=== PATIENT | female | born 1990 | race Caucasian/White ===

== ENCOUNTER 2019-04-08 21:40 | Outpatient (REF) | payer OTHER, SELFPAY ==
[2019-04-08 22:14] LABS: Bilirubin Negative (Negative); Blood Trace-intact (Negative); Clarity Clear (Clear); Glucose Negative (Negative); Ketones Negative (Negative); Leukocyte Esterase Negative (Negative); Nitrite Negative (Negative); Specific Gravity 1.025 (1.005-1.025); Urobilinogen 0.2 EU/dL (Up TO 0.2)
[2019-04-08 22:24] LABS: Bacteria Few HPF (Negative); C & S Indicated? No; Casts Negative LPF (Negative); Crystals Negative HPF (Negative); Epithelial Cells Few HPF (Negative); Mucus Trace (Negative); Other Cells Rare Renal (Negative); WBC 0-2 HPF (0-5)
== END 2019-04-08 22:00 ==
LOC: LBN 21:40
PROVIDERS: Visit Provider Obstetrics & Gynecology
DX: R35.0 Frequency of micturition (principal)
CPT/HCPCS: 81003; 81015

== ENCOUNTER 2019-08-19 10:14 | Outpatient (CLI) | payer OTHER, SELFPAY ==
[2019-08-20 14:24] LABS: COVID-19 RT-PCR UVMMC Result Negative (Negative)
== END 2019-08-19 10:34 ==
PROVIDERS: Visit Provider Internal Medicine
DX: Z11.59 Encounter for screening for other viral diseases (principal)
CPT/HCPCS: U0003

== ENCOUNTER 2020-01-06 08:36 | Outpatient (CLI) | payer OTHER, SELFPAY ==
[2020-01-07 20:23] LABS: COVID-19 RT-PCR Result NEGATIVE (Negative)
== END 2020-01-06 08:56 ==
PROVIDERS: Visit Provider Internal Medicine
DX: Z20.828 Contact with and (suspected) exposure to other viral communicable diseases (principal); R05 Cough; J02.9 Acute pharyngitis, unspecified
CPT/HCPCS: U0003

== ENCOUNTER 2020-01-29 21:10 | Outpatient (REF) | payer OTHER, SELFPAY | END 2020-01-29 21:30 | LOC: NCHCN 21:10 | PROVIDERS: PCP Nurse Practitioner Women's Health; Visit Provider Family Medicine | DX: L65.9 Nonscarring hair loss, unspecified (principal) | CPT/HCPCS: 84443 ==

== ENCOUNTER 2020-09-07 18:24 | Outpatient (REF) | payer OTHER, SELFPAY ==
[2020-09-07 13:55] LABS: Abs Immature Grans 0.01 10^3/uL (0.0-0.06); Absolute Basophil Count 0.03 10^3/uL (0.0-0.2); Absolute Eosinophil Count 0.16 10^3/uL (0.0-0.7); Absolute Monocyte Count 0.67 10^3/uL (0.1-0.8); Absolute Neutrophil Count 4.21 10^3/uL (1.2-6.7); Basophils % 0.4; Eosinophils % 2.2; HCT 41.7 % (36.0-46.0); HGB 13.9 g/dL (11.2-15.7); Immature Grans % 0.1; Lymphocytes % 31.2; MCH 31.1 pg (27.0-33.0); MCHC 33.3 % (32.0-36.0); MCV 93.3 fL (80-95); MPV 10.1 fL (8.0-11.0); Monocytes % 9.1; Nucleated RBC 0 %; Platelet Count 277 10^3/uL (130-400); RBC 4.47 10^6/uL (3.93-5.22); RDW 11.2 % (11.7-14.6); RDW-SD 38.3 fL; WBC 7.38 10^3/uL (4.4-10.8)
[2020-09-07 14:13] LABS: ALT 18 U/L (14-59); AST 12 U/L (15-37); Alkaline Phosphatase 82 U/L (46-116); Anion Gap 6.9 mmol/L (3-11); BUN 16 mg/dL (7-18); Bilirubin, Total 0.3 mg/dL (0.2-1.0); C-Reactive Protein 0.18 mg/dL (0.0-0.3); CO2 31.1 mmol/L (21.0-32.0); CREATININE 0.7 mg/dL (0.55-1.02); Calcium 8.9 mg/dL (8.5-10.1); Chloride 106 mmol/L (98-107); Glucose 94 mg/dL (74-106); Potassium 4.3 mmol/L (3.5-5.1); Sodium 144 mmol/L (136-145); Total Protein 7.1 g/dL (6.4-8.2)
== END 2020-09-07 18:25 | disposition home or self-care (01) ==
LOC: NCHCN 18:24
PROVIDERS: PCP Nurse Practitioner Women's Health; Visit Provider Family Medicine
DX: R10.9 Unspecified abdominal pain (principal); R63.4 Abnormal weight loss
CPT/HCPCS: 80053; 85025; 86140

== ENCOUNTER 2020-11-15 19:51 | Outpatient (REF) | payer OTHER, SELFPAY ==
[2020-11-16 00:35] LABS: COVID-19 RT-PCR UVMMC Result Negative (Negative)
== END 2020-11-15 19:52 | disposition home or self-care (01) ==
LOC: NCHCN 19:51
PROVIDERS: PCP Nurse Practitioner Women's Health; Visit Provider Internal Medicine
DX: Z20.822 Contact with and (suspected) exposure to COVID-19 (principal); J06.9 Acute upper respiratory infection, unspecified
CPT/HCPCS: U0003

== ENCOUNTER 2021-01-26 17:50 | Outpatient (REF) | payer OTHER, SELFPAY ==
[2021-01-27 19:52] LABS: COVID-19 RT-PCR UVMMC Result Negative (Negative)
== END 2021-01-26 17:51 | disposition home or self-care (01) ==
LOC: NCHCN 17:50
PROVIDERS: PCP Nurse Practitioner Women's Health; Visit Provider Internal Medicine
DX: Z20.822 Contact with and (suspected) exposure to COVID-19 (principal)
CPT/HCPCS: U0003

== ENCOUNTER 2021-02-11 15:11 | Outpatient (REF) | payer OTHER, SELFPAY ==
[2021-02-12 01:02] LABS: COVID-19 RT-PCR UVMMC Result Negative (Negative)
== END 2021-02-11 15:12 | disposition home or self-care (01) ==
LOC: NCHCN 15:11
PROVIDERS: PCP Nurse Practitioner Women's Health; Visit Provider Internal Medicine
DX: Z20.822 Contact with and (suspected) exposure to COVID-19 (principal)
CPT/HCPCS: U0003

== ENCOUNTER 2021-02-16 21:08 | Outpatient (REF) | payer OTHER, SELFPAY ==
[2021-02-18 19:04] LABS: COVID-19 RT-PCR UVMMC Result Negative (Negative)
== END 2021-02-16 21:09 | disposition home or self-care (01) ==
LOC: NCHCN 21:08
PROVIDERS: PCP Nurse Practitioner Women's Health; Visit Provider Internal Medicine
DX: Z20.822 Contact with and (suspected) exposure to COVID-19 (principal)
CPT/HCPCS: U0003

== ENCOUNTER 2021-04-11 16:01 | Outpatient (REF) | payer OTHER, SELFPAY ==
[2021-04-12 01:02] LABS: COVID-19 RT-PCR UVMMC Result Negative (Negative)
== END 2021-04-11 16:02 | disposition home or self-care (01) ==
LOC: NCHCN 16:01
PROVIDERS: PCP Nurse Practitioner Women's Health; Visit Provider Internal Medicine
DX: Z20.822 Contact with and (suspected) exposure to COVID-19 (principal); J06.9 Acute upper respiratory infection, unspecified
CPT/HCPCS: U0003

== ENCOUNTER 2021-11-30 11:10 | Emergency (ER) | payer BC, SELFPAY ==
[2021-11-30] VITALS (30 sets, daily range): BP systolic 90–108; BP diastolic 57–72; PULSE 79–96; RESP 9–21; TEMP 36.7–37.4; O2SAT 85–100
--- NOTE | 2021-11-30 11:00 | RT.EKG_ITS ---
APPROVED REPORT Exam: Resting ECG Reason for Exam: chest pain Patient Location: E HR:81 bpm ECG Measurements Heart Rate 81 AXIS NC 142 P 44 QRSd 84 QRS 61 QT 369 T 35 QTc 429 Conclusion Sinus rhythm...normal P axis, V-rate 60- 99
--- NOTE | 2021-11-30 11:57 | W.ED.GENAD ---
Discharge Plan Disposition Patient Disposition: HOME Condition: Stable Discharge Details Clinical Impression: Chest pain, Dyspnea Primary Care Provider: Rebecca Moore ED Provider: Greg Jean Baptiste Home Meds and New Rx's Prescriptions: Continued prenat.vits,myriam,[id number] Tablet 1 tab PO DAILY Discharge Instructions Instructions: Chest Pain (ED), Dyspnea (ED) Additional Instructions: Work-up in the ER was unremarkable for obvious emergent process. Troponin and delta troponin both are unremarkable, CTA of the chest is also negative. Please watch for new or worsening symptoms and return to the ER for any concerns. Lastly, please contact your [employer] team tomorrow to make them aware of your ER visit and need for outpatient reevaluation Discharge Data Discharge Date/Time-TO BE ENTERED AT DEPARTURE: 11/30/21 15:41 Medical Decision Making This is a 31-year-old female G2, P1 approximately 33 weeks , presenting for what she describes as chest pain and dyspnea that began about 30 minutes ago and has now essentially completely resolved. She appears well, nontoxic, lungs are clear to auscultation, pulse in the 80s, O2 sat 100% on room air. Given she is , concerned for hyper coagulable state and PE. Plan is to obtain IV access, obtain cardiac work-up including a delta troponin and D-dimer. We discussed aspirin in the setting, patient declines which I believe to be perfectly reasonable. Laboratory values reveal a D-dimer of 1037 otherwise essentially unremarkable for acute emergent process. Troponin less than 50. No evidence of leukocytosis. This D-dimer is elevated at 1 taking into consideration she is in her third trimester. Risks and benefits of CTA were discussed and we plan to move forward with CTA to rule out PE Patient remains asymptomatic. COVID-negative Delta troponin remains less than 50. CTA unremarkable. Discussed work-up with patient. She is relieved and has no additional questions or concerns. Plan to contact her [employer] team tomorrow. She remains asymptomatic Strict discharge and return precautions were provided. Patient understands, is agreeable to this plan, and has no additional questions or concerns upon discharge. This documentation was generated using [employer] system, please disregard any oddities of phrase or misspellings. Medical Records Medical records reviewed: Yes I reviewed the patient's medical records. Imaging Data Radiologic Study: Attestation: I personally reviewed and interpreted this imaging study as follows: Imaging: CT Scan Radiologist's impression: This report is currently processing and HAS NOT BEEN OFFICIALLY SIGNED BY THE PHYSICIAN - ESTIMATED TIME OF APPROVAL IS 11/30/2021 15:37. Exam(s) CT CHEST PE CTA EXAM: CT CHEST PE CTA CLINICAL HISTORY: chest pain/sob/elevated dimer. TECHNIQUE: Imaging Protocol: Axial CT angiography was performed with multi-slice acquisition and multi-planar and/or 3D reconstructions. CONTRAST MATERIAL: Intravenous: Omnipaque 350 contrast volume:66 mL COMPARISON: CT CT ABDOMEN PELVIS W from 09/17/2020 FINDINGS: Tracheobronchial tree: Patent where visualized. Pulmonary parenchyma: No consolidation or dominant measurable mass. No architectural distortion. Pulmonary Arteries: No evidence of filling defect to suggest pulmonary emboli. Mediastinum and Khadra: No dominant adenopathy or fluid collection. The esophagus is unremarkable. Visualized thyroid gland: Unremarkable. Pleura: No effusion or pneumothorax. Heart: The heart is not dilated. No coronary artery calcifications are seen. No pericardial effusion. Aorta: Thoracic aorta non-dilated. No evidence of dissection. Upper abdomen: There is again seen a cyst in the left lobe of the liver. Soft tissues: Unremarkable. Bones: Within normal limits for the patient's age. IMPRESSION: 1. No evidence of pulmonary embolism, thoracic aortic dissection or aneurysm. 2. Results of this exam have been verbally communicated with provider. Lab Data Lab results reviewed: Yes I reviewed the patient's lab results. Labs: Laboratory Tests Range/Units 11/30/21 11/30/21 11/30/21 11:30 11:30 11:30 WBC (4.4-10.8) 10^3/uL 9.20 RBC (3.93-5.22) 10^6/uL 4.00 Hgb (11.2-15.7) g/dL 12.9 Hct (36.0-46.0) % 37.7 MCV (80-95) fL 94 MCH (27.0-33.0) pg 32.3 MCHC (32.0-36.0) % 34.2 RDW (11.7-14.6) % 11.9 Plt Count (130-400) 10^3/uL 209 MPV (8.0-11.0) fL 10.4 Immature Gran % 0.3 Neutrophils % 75.0 Lymphocytes % 16.5 Monocytes % 7.6 Eosinophils % 0.5 Basophils % 0.1 Nucleated RBC % (0.0-0.3) % 0.0 Absolute Neutrophils (1.2-6.7) 10^3/uL 6.89 H Absolute Lymphocytes (1.2-3.4) 10^3/uL 1.52 Absolute Monocytes (0.1-0.8) 10^3/uL 0.70 Absolute Eosinophils (0.0-0.7) 10^3/uL 0.05 Absolute Basophils (0.0-0.2) 10^3/uL 0.01 PT (9.3-11.0) sec 8.9 L INR (0.9-1.1) 0.9 APTT (21.0-27.5) sec 18.9 L D-Dimer (<500) ng/mlFEU 1037 H Sodium (136-145) mmol/L 138 Potassium (3.5-5.1) mmol/L 4.1 Chloride (98-107) mmol/L 103 Carbon Dioxide (21.0-32.0) mmol/L 29.3 Anion Gap (3-11) mmol/L 5.7 BUN (7-18) mg/dL 8 Creatinine (0.55-1.02) mg/dL 0.5 L Est GFR (CKD-EPI 2020) (mL/min/1.73m2) 126.93 Glucose (74-106) mg/dL 91 Calcium (8.5-10.1) mg/dL 9.1 Magnesium (1.8-2.4) mg/dL 1.9 Total Bilirubin (0.2-1.0) mg/dL 0.3 AST (15-37) U/L 25 ALT (14-59) U/L 19 Alkaline Phosphatase (46-116) U/L 110 Troponin I (<or=60) ng/L < 50 NT-Pro-B Natriuret Pep (<300) pg/mL 12 Total Protein (6.4-8.2) g/dL 7.2 Albumin (3.4-5.0) g/dL 3.0 L COVID-19 Source SARS-CoV-2 (PCR) (Negative) Range/Units 11/30/21 11/30/21 12:55 14:38 WBC (4.4-10.8) 10^3/uL RBC (3.93-5.22) 10^6/uL Hgb (11.2-15.7) g/dL Hct (36.0-46.0) % MCV (80-95) fL MCH (27.0-33.0) pg MCHC (32.0-36.0) % RDW (11.7-14.6) % Plt Count (130-400) 10^3/uL MPV (8.0-11.0) fL Immature Gran % Neutrophils % Lymphocytes % Monocytes % Eosinophils % Basophils % Nucleated RBC % (0.0-0.3) % Absolute Neutrophils (1.2-6.7) 10^3/uL Absolute Lymphocytes (1.2-3.4) 10^3/uL Absolute Monocytes (0.1-0.8) 10^3/uL Absolute Eosinophils (0.0-0.7) 10^3/uL Absolute Basophils (0.0-0.2) 10^3/uL PT (9.3-11.0) sec INR (0.9-1.1) APTT (21.0-27.5) sec D-Dimer (<500) ng/mlFEU Sodium (136-145) mmol/L Potassium (3.5-5.1) mmol/L Chloride (98-107) mmol/L Carbon Dioxide (21.0-32.0) mmol/L Anion Gap (3-11) mmol/L BUN (7-18) mg/dL Creatinine (0.55-1.02) mg/dL Est GFR (CKD-EPI 2020) (mL/min/1.73m2) Glucose (74-106) mg/dL Calcium (8.5-10.1) mg/dL Magnesium (1.8-2.4) mg/dL Total Bilirubin (0.2-1.0) mg/dL AST (15-37) U/L ALT (14-59) U/L Alkaline Phosphatase (46-116) U/L Troponin I (<or=60) ng/L < 50 NT-Pro-B Natriuret Pep (<300) pg/mL Total Protein (6.4-8.2) g/dL Albumin (3.4-5.0) g/dL COVID-19 Source Nasal/Nares SARS-CoV-2 (PCR) (Negative) Negative ECG Data Attestation: I personally reviewed and interpreted this ECG (s) as follows: Interpretation: Sinus rhythm, ventricular of 81. No STEMI HPI General Mode of arrival: ambulatory. Date/Time Provider Initiated Documentation: 11/30/21 11:29. Limitations to Documentation: no limitations. Information obtained by: patient. History of Present Illness 31 year old F presents to the emergency department with the chief complaint of chest pressure/dyspnea, described as moderate, with intensity rated at 4. Quality is described as stabbing (with pressure), and is localized to the chest. Patient reports radiation to back. Patient started experiencing this minute(s) (30) and it has been now resolved. No relieving factors improve symptom(s), No exacerbating factors reported . Patient notes no other symptoms.. Patient did receive the following treatments prior to arrival, none Related Data Home Medications Medication Instructions Recorded Confirmed prenat.vits,myriam,[id number] 1 tab PO DAILY 11/30/21 11/30/21 Allergies Allergy/AdvReac Type Severity Reaction Status Date / Time prednisolone AdvReac Intermediate Other (See Verified 11/30/21 11:25 Comment) General Stated Complaint: Chest Pain TODD: 3 Review of Systems Constitutional Constitutional: Denies fever(s) and Denies weakness ENT Ears, Nose, Mouth, and Throat: Denies neck pain Cardiovascular Cardiovascular: Reports chest pain and Reports dyspnea Respiratory Respiratory: Denies cough and Reports dyspnea Gastrointestinal Gastrointestinal: Denies abdominal pain, Denies nausea and Denies vomiting Genitourinary Genitourinary: Denies abnormal vaginal bleeding and Denies dysuria Musculoskeletal Musculoskeletal: Reports back pain and Denies neck pain Integumentary/Breasts Skin/Breast: Denies rash Neurologic Neurologic: Denies weakness PFSH All Active Problems Chest pain (Acute) Dyspnea (Acute) Social History Smoking/Tobacco Use Status: Never Smoking risk assessment performed?: Yes Alcohol Intake: never Drug use: Never Substance use type: does not use Do you feel safe at home: Yes Do you feel safe in your relationship?: Yes Exam Const General: cooperative, healthy appearing, comfortable and no acute distress Orientation: alert and awake [facility] Head: normal to inspection, normocephalic and atraumatic Eyes Conjunctivae: conjunctivae normal Neck Neck: normal visual inspection, full ROM, no meningeal signs, trachea midline and supple Resp Effort & Inspection: normal respiratory effort and able to speak in complete sentences Auscultation: clear to auscultation bilaterally Cardio Rate: regular rate Rhythm: regular rhythm GI Palpation: nontender Other: Consistent with approximately 33 weeks Back/Spine/Pelvis Back: No back tenderness Skin General skin exam: no rashes or lesions noted Neuro General: patient alert, patient awake, moves all extremities and no focal motor deficits Cognition: normal cognition Speech: speech normal Gait: normal gait Sensory Exam: no sensory deficits noted Extrem General: normal to inspection, full ROM, capillary refill normal, no pedal edema and no calf tenderness Psych Appearance: grossly normal Mental Status: mental status grossly normal Course Vital Signs Vital signs: Vital Signs Temperature 37.4 C 11/30/21 11:20 Pulse 89 11/30/21 11:20 Respiratory Rate 16 11/30/21 11:20 Blood Pressure 106/72 11/30/21 11:20 Pulse Oximetry 100 11/30/21 11:20 Temperature 37.4 C 11/30/21 11:20 Temperature Source Temporal Artery Scan 11/30/21 11:20 Pulse 89 11/30/21 11:20 Respiratory Rate 16 11/30/21 11:20 Respiratory Effort Non-Labored 11/30/21 11:27 Blood Pressure 106/72 11/30/21 11:20 Blood Pressure Position Sitting 11/30/21 11:20 Pulse Oximetry 100 11/30/21 11:20 Oxygen Delivery Method Room Air 11/30/21 11:20 Oxygen Flow Rate 0 11/30/21 11:20 Pain Level 1 11/30/21 11:20
[2021-11-30 12:00] LABS: Abs Immature Grans 0.03 10^3/uL (0.0-0.06); Absolute Basophil Count 0.01 10^3/uL (0.0-0.2); Absolute Eosinophil Count 0.05 10^3/uL (0.0-0.7); Absolute Lymphocyte Count 1.52 10^3/uL (1.2-3.4); Absolute Neutrophil Count 6.89 10^3/uL (1.2-6.7); Basophils % 0.1; Eosinophils % 0.5; HCT 37.7 % (36.0-46.0); HGB 12.9 g/dL (11.2-15.7); Immature Grans % 0.3; Lymphocytes % 16.5; MCH 32.3 pg (27.0-33.0); MCHC 34.2 % (32.0-36.0); MCV 94 fL (80-95); MPV 10.4 fL (8.0-11.0); Monocytes % 7.6; Platelet Count 209 10^3/uL (130-400); RDW 11.9 % (11.7-14.6); RDW-SD 40.8 fL
[2021-11-30 12:14] LABS: INR 0.9 (0.9-1.1); PTT Activated 18.9 sec (21.0-27.5); Prothrombin Time 8.9 sec (9.3-11.0)
[2021-11-30 12:26] LABS: ALT 19 U/L (14-59); AST 25 U/L (15-37); Alkaline Phosphatase 110 U/L (46-116); Anion Gap 5.7 mmol/L (3-11); BUN 8 mg/dL (7-18); Bilirubin, Total 0.3 mg/dL (0.2-1.0); CO2 29.3 mmol/L (21.0-32.0); CREATININE 0.5 mg/dL (0.55-1.02); Calcium 9.1 mg/dL (8.5-10.1); Chloride 103 mmol/L (98-107); Estimated GFR 126.93 (mL/min/1.73m2); Glucose 91 mg/dL (74-106); Magnesium 1.9 mg/dL (1.8-2.4); NT-proBNP 12 pg/mL (<300); Potassium 4.1 mmol/L (3.5-5.1); Sodium 138 mmol/L (136-145); Total Protein 7.2 g/dL (6.4-8.2)
[2021-11-30 12:29] LABS: Troponin I < 50 ng/L (<or=60)
[2021-11-30 12:32] LABS: D-Dimer 1037 ng/mlFEU (<500)
--- NOTE | 2021-11-30 12:45 | DI.CT_ITS ---
Exam(s) CT CHEST PE CTA EXAM: CT CHEST PE CTA CLINICAL HISTORY: chest pain/sob/elevated dimer. TECHNIQUE: Imaging Protocol: Axial CT angiography was performed with multi-slice acquisition and mu lti-planar and/or 3D reconstructions. CONTRAST MATERIAL: Intravenous: Omnipaque 350 contrast volume:66 mL COMPARISON: CT CT ABDOMEN PELVIS W from 09/17/2020 FINDINGS: Tracheobronchial tree: Patent where visualized. Pulmonary parenchyma: No consolidation or dominant measurable mass. No architectural distortion. Pulmonary Arteries: No evidence of filling defect to suggest pulmonary emboli. Mediastinum and Khadra: No dominant adenopathy or fluid collection. The esophagus is unremarkable. Visualized thyroid gland: Unremarkable. Pleura: No effusion or pneumothorax. Heart: The heart is not dilated. No coronary artery calcifications are seen. No pericardial effusion. Aorta: Thoracic aorta non-dilated. No evidence of dissection. Upper abdomen: There is again seen a cyst in the left lobe of the liver. Soft tissues: Unremarkable. Bones: Within normal limits for the patient's age. IMPRESSION: 1. No evidence of pulmonary embolism, thoracic aortic dissection or aneurysm. 2. Results of this exam have been verbally communicated with provider. RADIATION DOSE DELIVERED: 322.02mGy.cm Total DLP DATA REPOSITORY: All CT scans at this facility are submitted to the National Radiology Data Registry (NRDR) Dose Index Registry (DIR) with the [employer] (ACR). RADIATION OPTIMIZATION: All CT scans at this facility use at least one of these dose optimization te chniques: automated exposure control; mA and/or kV adjustment per patient size (includes targeted exa ms where dose is matched to clinical indication); or iterative reconstruction.
[2021-11-30 12:58] LABS: Source Nasal/Nares
[2021-11-30 13:51] LABS: COVID-19 PCR Negative (Negative)
--- NOTE | 2021-11-30 14:41 | NUR.NOTE ---
Nursing Note: PT RETURN FROM DI, 2ND TROP. TAKEN & SENT TO LAB, STATES AT THIS TIME NO CHEST PAIN, REPORTS JUST FEELS FUNNY AND NOT NORMAL BUT NO PAIN, CONT. TO MONITOR.
[2021-11-30] MEDS: Omnipaque 350 MG/ML 100 ML BTL 66 ML IV (14:44)
[2021-11-30 15:13] LABS: Troponin I < 50 ng/L (<or=60)
== END 2021-11-30 15:41 | disposition home or self-care (01) ==
PROVIDERS: Emergency Provider Physician Assistant; PCP Nurse Practitioner Women's Health
DX: O99.891 Other specified diseases and conditions complicating pregnancy (principal); R07.89 Other chest pain; R06.00 Dyspnea, unspecified; R79.1 Abnormal coagulation profile; Z3A.33 33 weeks gestation of pregnancy; Z20.822 Contact with and (suspected) exposure to COVID-19
CPT/HCPCS: 36415; 71275; 80053; 87635; 93005; 99285; 83735; 83880; 84484; 85025; 85379; 85610; 85730; 93010; 99284; J3490

== ENCOUNTER 2024-03-28 19:51 | Outpatient (REF) | payer BC, SELFPAY ==
--- OUTSIDE RECORDS SUMMARY | 2024-03-28 20:15 | XMS_ITS | Encounter Summary ---
Author Organization [facility] Address [address] [place] [id number] Care Team Providers Care Product Safety Coordinator Name Role Phone Unavailable Primary Care Provider Unavailabl e Encounter Details Date Type Department Care Team (Late st Contact Info) Description 11/15/2020 Lab Requisition [facility] Pathology & Laboratory Medicine - [facility] [address], [place] [address] Outr Resulting Lab, Provider Social History Tobacco Use Types Packs/Day Years Used Date Smoking Tobacco: Never Assessed Interpersonal Safety Answer Date Record ed Physically Hurt Never 02/17/2020 Verbally Threaten Not on file 02/17/2020 Comments Unknown Sex and Gender Information Value Date Recorded Sex Assigned at Not on file Legal Sex Female 16:48 EDT Gender Identity Not on file Sexual Orientation Not on file documented as of this encounter Plan of Treatment Not on file documented as of this encounter Procedures Procedure Name Priority Date/Time Associated Diagnosis Comments ZZCOVID-19 TEST UVC LAB PCR Today 11/15/2020 10:30 EDT COVID-19 TESTING Routine 11/15/2020 10:3 0 EDT documented in this encounter Results * COVID-19 TEST UVC LAB PCR (11/15/2020 10:30 EDT) Swab ENTIRE NASOPHARYNX / Unknown 11/15/2020 10:30 EDT 11/15/2020 21:20 EDT us Provider Outr Resulting Lab MICROBIOLOGY - GENER AL ORDERABLES Final Result [facility] [address] [place] [address] * COVID-19 TESTING (11/15/2020 10:30 EDT) COVID-19 rt-PCR Result Negative Negative 11/16/2020 0:30 EDT [facility] Comment: This test has not been FDA cleared or approved. This test has been authorized by FDA under an EUA for use by authorized laboratories. This test has been authorized only for detection of nucleic acid from 2019-nCoV, not for any other viruses or pathogens. This test is only authorized for the duration of the declaration that circumstances exist justifying the authorization of emergency use of in vitro diagnostic tests for detection and/or diagnosis of 2019-nCoV under section 564(b)(1) of Act, 21 U.S.C ?? 360bbb-3(b) (1), unless the authorization is terminated or revoked sooner. Negative results do not preclude 2019-nCoV infection and should not be used as the sole basis for treatment or other patient management decisions. Negative results must be combined with clinical observations, patient history, and epidemiological information. Performed on the [employer] Fusion instrument Performing Lab [place] [facility] Lab 11/16/2020 0:30 EDT [facility] Swab 11/15/2020 10:3 0 EDT 11/15/2020 21:20 EDT us Provider Outr Resulting Lab MICROBIOLOGY - GENER AL ORDERABLES Final Result [facility] [address] [place] [address] documented in this encounter Visit Diagnoses Not on filedocumented in this encounter
--- OUTSIDE RECORDS SUMMARY | 2024-03-28 20:15 | XMS_ITS | Continuity of Care Document ---
Author Organization [facility] Address [address] [place] [address] Encounter [facility] FIN NBR [id number] Date(s): 12/26/21 - 12/26/21 [facility] [address], [place] [address] Encounter Diagnosis (Discharge Diagnosis) - 12/26/21 Discharge Disposition: Home or Self Care Attending Physician: Juan Gandhi Allergies, Adverse Reactions, Alerts Substance Reaction Severity Status prednisoLONE 1 Moderate Active 1topical-mouth irritation Medications 19 ([place]) See Instructions, 0 Refill(s) Start Date: 12/26/21 Status: Ordered Problem List Condition Confirmation Course Effective Dates Status Health [facility] Informant Confirmed 04/10/21 Active Vital Signs Most recent to oldest [Reference Range]: 1 Blood Pressure [90-140/60-90 mmHg] 106/6 2mmHg (12/26/21 3:29 PM) Weight 71.2 kg (12/26/21 3:35 PM) Weight Dosing 71.2 kg (12/26/21 3:29 PM) Pre- Weight 56.699 kg (12/26/21 3:29 PM) Cumulative Weight Gain 14.50 kg (12/26/21 3:35 PM) Height 154.94 cm (12/26/21 3:29 PM) Social History Social History Type Response Sex Female
--- OUTSIDE RECORDS SUMMARY | 2024-03-28 20:15 | XMS_ITS | Continuity of Care Document ---
Author Organization [facility] Address [address] [place] [address] Care Team Providers Care Corporate Development Intern Name Role Phone DONNA JORDAN APRN Primary Care Physician Encounter [facility] NBR [phone] Date(s): 02/13/24 - 02/13/24 [facility] [address] [place] [address]- us Discharge Disposition: Home Allergies, Adverse Reactions, Alerts Substance Criticality Severity Reaction Reaction Severity Status prednisoLONE 1 High criticality Moderate Oral blisters Active Celery High criticality Severe Act desire 1topical-mouth irritation Assessment and Plan Future Appointments Medications norethindrone 0.35 mg oral tablet 0.35 mg = 1 tab, Oral, Daily, # 84 tab, 3 Refill(s), Pharmacy: [facility], 154.94, cm, 01/19/22 5:08:00 EDT, Height/Length Dosing, 73, kg, 01/19/22 5:08:00 EDT, Weight Dosing Start Date: 02/01/22 Status: Ordered 19 ([place]) See Instructions, 0 Refill(s) Start Date: 12/26/21 Status: Ordered Valium 5 mg oral tablet See Instructions, 1 tab Orally times one 30 min prior to procedure. May repeat x 1 if needed., # 2 tab, 0 Refill(s), Pharmacy: [facility], 165.1, cm, 03/09/22 15:08:00 EST, Height, 59, kg, 01/03/24 16:19:00 EDT, Weight Dosing Start Date: 01/04/24 Status: Ordered Problem List Condition Confirmation Course Effective Dates Status H ealth Status Informant Cystocele with rectocele Confirmed Active Obsessional thoughts Confirmed Active Oral contraception status Confirmed Active Women's annual routine gynecological examination Confirmed Active Contraceptive management Confirmed Active Procedures Procedure Date Related Diagnosis Body Site Status Knee 1 Completed Wrist Completed 1in high school Social History Social History Type Response Smoking Status Smoking tobacco use: Never tobacco user;Never entered on: 01/03/24 Sex Female Sex Representation Female (finding) summary Document * Event Display: Summary Document Authored Date: [id number] SAMANTHA DERAS : 1990 Age: 31 Years SAMNATHA DERAS : [birth year] Summary (Date of Report: 02/01/22) G 2 P 1 (1,0,0,1) Gestation: [place] LMP (from pt. history): -- SISI: 01/15/2022 SISI/EGA Method: Last Menstrual Period EGA: Delivered Gestation info at delivery: Baby A : 40 weeks 4 days SAMANTHA DERAS DOB: [birth year] Antepartum Note Date: 01/09/22 14:55 (39 weeks) By: Juan Gandhi MD Some BHs, baby is low Date: 12/27/21 07:40 (37 weeks) By: Juan Gandhi MD Late entry: GBS done. Vtx but high. SAMANTHA DERAS DOB: [birth year] Problems (Active Problems Only) ([facility] [place]: [id number], Onset: 04/10/21) SAMANTHA DERAS DOB: [birth year] Risk Factors and Genetic Screening All Results Documented Since 04/10/2021 Risk Factors (Current ) No risk factors have been recorded for this . Ethnic Screening No ethnicities have been recorded. Genetic Disorders Screening No genetic disorders have been recorded. SAMANTHA DERAS : [birth year] Gestational Age (EGA) and SISI * Note: EGA calculated as of 02/01/2022 SISI: 01/15/2022 EGA*: 40 weeks 4 days Type: Authoritative Method Date: 04/10/2021 Method: Last Menstrual Period (04/10/2021) Confirmation: Confirmed Description: Date Definite Comments: -- Entered by: Juan Gandhi MD on 12/25/2021 Other SISI Calculations for this : No additional SISI calculations have been recorded for this SAMANTHA DERAS : [birth year] Measurements Pre- Weight: 56.699 kg 01/16/22 (40 weeks) Recent Weight Measured: 73.0 kg (+17) 01/16/22 (40 weeks) Height/Length Measured: 154.94 cm 01/16/22 (40 weeks) Body Mass Index Measured: 30.41 kg/m2 01/16/22 (40 weeks) SAMANTHA DERAS : [birth year] Exam and Notes Date QUINTON Huerta PTL S/S Cervix BP Weight Urine Baby cm Dil Eff(%) Sta mmHg lbs kg Gluc Prot FHR Activity Fet Pres 01/19/22 40w4d -- -- 10 100% -- -- -- -- -- Baby A = 130 *Present pe... -- 01/16/22 40w1d 37 *Pelv.. 2.5 70% -3 102/68 *160... Negative Negative Baby A = 145bpm *Present pe... Vertex 01/09/22 39w1d 38 -- -- -- -- 104/62 *159... Negative Negative Baby A = 145 *Present pe... Vertex 01/02/22 38w1d -- -- -- -- -- 98/62 *157... Negative Negative -- -- -- 12/27/21 37w2d 37 -- 0 50% -3 -- -- -- -- Baby A = 150 *Present pe... Vertex 12/26/21 37w1d -- -- -- -- -- 106/62 *156... -- -- -- -- -- Next Visit: +1 weeks from 01/16/2022 * Labor Signs & Symptoms 01/16/2022 Pelvic pressure * Weight 01/16/2022 160.965(lbs) 73.0(kg) 01/09/2022 159.642(lbs) 72.4(kg) 01/02/2022 157.216(lbs) 71.3(kg) 12/26/2021 156.996(lbs) 71.2(kg) * Activity 01/19/2022 Present per patient 01/16/2022 Present per patient 01/09/2022 Present per patient 12/27/2021 Present per patient SAMANTHA DERAS : [birth year] Physical Exams Physical Exam Mental Status Level of Consciousness: Alert (01/20/22) Orientation Assessment: Oriented x 4 (01/20/22) Affect/Behavior: Appropriate (01/19/22) HEENT Mouth: Mouth appears normal (01/20/22) Throat: Throat appears normal (01/20/22) Cardiovascular Cardiovascular Symptoms: None (01/20/22) Nail Bed Color: Normal for ethnicity (01/20/22) Capillary Refill: 2 seconds or less (01/20/22) Skin Temperature, Upper Extremities: Warm (01/20/22) Skin Temperature, Lower Extremities: Warm (01/20/22) Heart Rhythm: Regular (01/19/22) Respiratory Respiratory Symptoms: None (01/20/22) Respirations: Unlabored (01/20/22) Respiratory Pattern: Regular (01/20/22) Gastrointestinal GI Symptoms: None (01/20/22) Abdomen Description: Rounded (01/20/22) Passing Flatus: Yes (01/20/22) Extremities Edema Edema: None (01/09/22) Integumentary Skin Color General: Usual for ethnicity (01/20/22) Skin Temperature: Warm (01/20/22) Skin Turgor: Elastic (01/20/22) Skin Moisture General: Dry (01/20/22) Skin Integrity General: Intact (01/20/22) Mucous Membrane Color: [place] (01/20/22) Mucous Membrane Description: Moist (01/20/22) SAMANTHA DERAS : [birth year] Blood Types and Anti-D Immune Globulin Blood Type and Screen Mother ABO/Rh: -- Mother Antibody Screen: -- Father of Baby ABO/Rh: -- Father of Baby Antibody Screen: -- Anti-D Immune Globulin Rho(D) Initial Status: -- Rho(D) 28 Week Status: -- Rho(D) Dates Given: -- SAMANTHA DERAS : [birth year] Tests and Lab Results Results ending with 'TR' have been keyed in by the practice or interpreted manually. Result Date: Estimated weeks post onset will display next to actual result date. Test Result Date Ref Range Group B Strep (GeneXpert) Negative 12/26/21 (37 weeks) Negative Protein Urine Dipstick Negative 01/02/22 (38 weeks) Glucose Urine Dipstick Negative 01/02/22 (38 weeks) Protein Urine Dipstick Negative 01/09/22 (39 weeks) Glucose Urine Dipstick Negative 01/09/22 (39 weeks) Protein Urine Dipstick Negative 01/16/22 (40 weeks) Glucose Urine Dipstick Negative 01/16/22 (40 weeks) Imm Gran Auto 0.4 % 01/19/22 (40 weeks) (0.0 - 0.5) Imm Gran Absolute (N) 0.04 01/19/22 (40 weeks) Eos, Auto 0.40 % 01/19/22 (40 weeks) (0.00 - 3.00) Eos Absolute 0.0 K/mcL 01/19/22 (40 weeks) (0.0 - 0.2) Neutro Absolute (H) 6.8 K/mcL 01/19/22 (40 weeks) (1.4 - 6.5) [place] Absolute (H) 1.1 K/mcL 01/19/22 (40 weeks) (0.1 - 0.6) Lymph Absolute 2.0 K/mcL 01/19/22 (40 weeks) (1.2 - 3.4) Baso Absolute 0.0 K/mcL 01/19/22 (40 weeks) (0.0 - 0.2) Basophil Auto (H) 0.3 % 01/19/22 (40 weeks) (0.0 - 0.2) [place] Auto (H) 10.8 % 01/19/22 (40 weeks) (1.7 - 9.3) Neutro Auto 67.8 % 01/19/22 (40 weeks) (42.2 - 75.2) Lymph Auto (L) 20.3 % 01/19/22 (40 weeks) (20.5 - 51.1) Hct (L) 36.1 % 01/19/22 (40 weeks) (37.0 - 52.0) Platelets 198 K/mcL 01/19/22 (40 weeks) (130 - 400) MCHC 34.6 g/dL 01/19/22 (40 weeks) (32.0 - 36.0) MCV 93.0 fL 01/19/22 (40 weeks) (80.0 - 99.0) RBC (L) 3.88 Million/mcL 01/19/22 (40 weeks) (4.20 - 6.10) Hgb 12.5 g/dL 01/19/22 (40 weeks) (12.0 - 18.0) WBC 10.0 K/mcL 01/19/22 (40 weeks) (4.8 - 10.8) MCH (H) 32.2 pg 01/19/22 (40 weeks) (27.0 - 31.0) RDW-CV 12.2 % 01/19/22 (40 weeks) (11.5 - 14.5) MPV 10.2 fL 01/19/22 (40 weeks) (7.4 - 10.4) SAMANTHA DERAS: [birth year] Actions No Actions have been documented. SAMANTHA DERAS: [birth year] Situational Awareness No comments have been documented. SAMANTHA DERAS : [birth year] Allergies (Active and Proposed Allergies Only) Celery (Severity: Severe, Onset: Unknown) prednisoLONE (Severity: Moderate, Onset: Unknown) Comments: topical-mouth irritation SAMANTHA DERAS : [birth year] Medications Prescriptions and Home Medications Currently Active or Taking acetaminophen 325 mg oral tablet (Historically recorded) SI mg = 2 tab, Oral, every 4 hr, PRN: pain, 0 Refill(s) Ordered: 01/20/22 Provider: Dipika Chung MD, MARCOS benzocaine-menthol 20%-0.5% topical spray (Historically recorded) SI tari, Topical, As Directed, PRN: other (see comment), 0 Refill(s) Ordered: 01/20/22 Provider: Dipika Chung MD, MARCOS docusate-senna 50 mg-8.6 mg oral tablet (Historically recorded) SI tab, Oral, BID, PRN: constipation, 0 Refill(s) Ordered: 01/20/22 Provider: Dipika Chung MD, FACOG ferrous sulfate 325 mg (65 mg elemental iron) oral delayed release tablet (Historically recorded) SI mg = 1 tab, Oral, Daily, 0 Refill(s) Ordered: 01/20/22 Provider: Dipika John, MD, FACOG ibuprofen 600 mg oral tablet (Historically recorded) SI mg = 1 tab, Oral, every 4 hr, PRN: pain, 0 Refill(s) Ordered: 01/20/22 Provider: Dipika Chung MD, FACOG norethindrone 0.35 mg oral tablet SI.35 mg = 1 tab, Oral, Daily, 84 tab, 4 Refill(s) Ordered: 01/20/22 Provider: Dipika Chung MD, FACOG 19 ([place]) (Historically recorded) SIG: See Instructions, 0 Refill(s) Ordered: 12/26/21 Provider: -- esteban chepe 50% rectal pad (Historically recorded) SI tari, Topical, As Directed, PRN: other (see comment), 0 Refill(s) Ordered: 01/20/22 Provider: Dipika Chung MD, FACOG Inactive or Suspended (Prescriptions and documented medications since 01/08/21) No medications have been recorded Medication Administrations In-Office/Hospital (All in-office/hospital administrated medications ordered since 01/08/21) ferrous sulfate (Ferrous Sulfate 325 mg Tab [LTTL]) 325 mg = 1 tab, Oral, Daily Status: Canceled Ordered: 01/19/22 Provider: Dipika Chung MD, FACOG multivitamin, (Multiple Vitamins [LTTL]) 1 tab, Oral, Daily Status: Canceled Ordered: 01/19/22 Provider: Dipika Chung MD, FACOG acetaminophen 650 mg = 2 tab, N/A, Once Status: Completed Ordered: 01/19/22 Provider: WillieUser, Generated ibuprofen 600 mg = 1 tab, N/A, Once Status: Completed Ordered: 01/19/22 Provider: DomainUser, Generated lidocaine 1% (lidocaine) 20 mL, N/A, Once Status: Completed Ordered: 01/19/22 Provider: DomainUser, Generated mineral oil 100% (mineral oil) 30 mL, N/A, Once Status: Completed Ordered: 01/19/22 Provider: WillieUser, Generated oxytocin 10 units = 1 mL, N/A, Once Status: Completed Ordered: 01/19/22 Provider: DomainUser, Generated acetaminophen (Acetaminophen 325 mg Tab [LTTL]) 650 mg = 2 tab, Oral, every 4 hr, PRN: pain Status: Discontinued Ordered: 01/19/22 Provider: Dipika Chung MD, TRISTAOG benzocaine-menthol 20%-0.5% topical spray (Benzocaine-Menthol Topical [place] [LTTL]) 1 tari, Topical, As Directed, PRN: other (see comment) Status: Discontinued Ordered: 01/19/22 Provider: Dipika Chung MD, MARCOS benzocaine-menthol 20%-0.5% topical spray (Benzocaine-Menthol Topical [place] [LTTL]) 1 tari, Topical, As Directed, PRN: other (see comment) Status: Discontinued Ordered: 01/19/22 Provider: Dipika Chung MD, TRISTAOG calcium (as carbonate) 500 mg oral tablet (Calcium Carbonate 500 mg Chew Tab (Tums) [LTTL]) 500 mg = 1 tab, Oral, every 2 hr, PRN: dyspepsia Status: Discontinued Ordered: 01/19/22 Provider: Dipika Chung MD, MARCOS calcium (as carbonate) 500 mg oral tablet (Calcium Carbonate 500 mg Chew Tab (Tums) [LTTL]) 1,000 mg = 2 tab, Oral, every 2 hr, PRN: dyspepsia Status: Discontinued Ordered: 01/19/22 Provider: Dipika Chung MD, TRISTAOG calcium (as carbonate) 500 mg oral tablet (Calcium Carbonate 500 mg Chew Tab (Tums) [LTTL]) 1,000 mg = 2 tab, Oral, every 2 hr, PRN: dyspepsia Status: Discontinued Ordered: 01/19/22 Provider: Dipika Chung MD, MARCOS calcium (as carbonate) 500 mg oral tablet (Calcium Carbonate 500 mg Chew Tab (Tums) [LTTL]) 500 mg = 1 tab, Oral, every 2 hr, PRN: dyspepsia Status: Discontinued Ordered: 01/19/22 Provider: Dipika Chung MD, MARCOS docusate-senna 50 mg-8.6 mg oral tablet (Senna-Docusate 8.6 mg-50 mg Tab [LTTL]) 1 tab, Oral, BID, PRN: constipation Status: Discontinued Ordered: 01/19/22 Provider: Dipika Chung MD, MARCOS docusate-senna 50 mg-8.6 mg oral tablet (Senna-Docusate 8.6 mg-50 mg Tab [LTTL]) 1 tab, Oral, BID, PRN: constipation Status: Discontinued Ordered: 01/19/22 Provider: Dipika Chung MD, FACOG ferrous sulfate (Ferrous Sulfate 325 mg Tab [LTTL]) 325 mg = 1 tab, Oral, Daily Status: Discontinued Ordered: 01/19/22 Provider: Dipika Chung MD, FACOG ibuprofen (Ibuprofen 600 mg Tab [LTTL]) 600 mg = 1 tab, Oral, every 4 hr, PRN: pain Status: Discontinued Ordered: 01/19/22 Provider: Dipika Chung MD, FACOG Lactated Ringers Injection 1,000 mL (Lactated Ringers 1,000 mL) 150 mL/hr, IV Status: Discontinued Ordered: 01/19/22 Provider: Dipika Chung MD, FACOG multivitamin, (Multiple Vitamins [LTTL]) 1 tab, Oral, Daily Status: Discontinued Ordered: 01/19/22 Provider: Dipika Chung MD, FACOG oxytocin (oxytocin 10 units/mL Inj 1ml Vial [LTTL]) 10 units = 1 mL, IM, Once, PRN: other (see comment) Status: Discontinued Ordered: 01/19/22 Provider: Dipika Chung MD, FACOG simethicone (Simethicone 80 mg Chew Tab [LTTL]) 80 mg = 1 tab, Oral, As Directed, PRN: gas Status: Discontinued Ordered: 01/19/22 Provider: Dipika Chung MD, FACOG simethicone (Simethicone 80 mg Chew Tab [LTTL]) 80 mg = 1 tab, Oral, As Directed, PRN: gas Status: Discontinued Ordered: 01/19/22 Provider: Dipika Chung MD, FACOG sodium chloride 0.9% flush (Sodium Chloride 0.9% Flush IV Mayra 10 mL [LTTL]) 10 mL, IV Flush, As Directed, PRN: other (see comment) Status: Discontinued Ordered: 01/19/22 Provider: Dipika Chung MD, FACOG witch hazel 50% rectal pad (Witch Chepe 50% Top Pad [LTTL]) 1 tari, Topical, As Directed, PRN: other (see comment) Status: Discontinued Ordered: 01/19/22 Provider: Dipika Chung MD, FACOG witch hazel 50% rectal pad (Witch Chepe 50% Top Pad [LTTL]) 1 tari, Topical, As Directed, PRN: other (see comment) Status: Discontinued Ordered: 01/19/22 Provider: Dipika Chung MD, FACOG SAMANTHA DERAS : [birth year] Immunizations No immunizations have been administered or recorded as given SAMANTHA DERAS : [birth year] Menstrual History Last Recorded Menstrual Period: -- Last Menstrual Period Description: -- Menarche Onset: -- Menarche Frequency: -- Menarche Length: -- Date of Menses Prior to LMP: -- On Hormonal Contracept within 2 months of LMP: -- Date of Home Test: -- Comments: -- SAMANTHA DERAS : [birth year] History (1,0,0,1) # 1 Baby 1 Outcome Date: 08/14/2019 Outcome or Result: Vaginal Gest Age: 40 weeks 1 days Outcome: Live Sex: Male Wt: 3289 g Hospital: [facility] Comment: Nitrous GBS positive SAMANTHA DERAS : [birth year] Medical History Past Medical History No active past medical history has been recorded Family History No active positive family history has been recorded Procedure or Surgical History Delivery of Products of Conception, External Approach Age: 31 Years Date: 01/19/2022 Drainage of Amniotic Fluid, Therapeutic from Products of Conception, Via Natural or Artificial Opening Age: 31 Years Date: 01/19/2022 Introduction of Other Gas into Respiratory Tract, Via Natural or Artificial Opening Age: 31 Years Date: 01/19/2022 Monitoring of Products of Conception, Cardiac Rate, External Approach Age: 31 Years Date: 01/19/2022 Repair Perineum Muscle, Open Approach Age: 31 Years Date: 01/19/2022 SAMANTHA DERAS DOB: [birth year] Social & Psychosocial History Social History Tobacco Never tobacco user Tobacco Use:. Electronic Cigarette/Vaping Electronic Cigarette Use: Never. Psychosocial History No active psychosocial history has been recorded SAMANTHA DERAS DOB: [birth year] Infection History Infection history negative or not recorded SAMANTHA DERAS DOB: [birth year] Anesthesia and Transfusions Prior Anesthesia or Transfusion Received: -- Prior Anesthesia Reaction(s): -- Prior Transfusion Reaction(s): -- Blood Transfusion Acceptable to Patient: -- SAMANTHA DERAS : [birth year] Plan and Patient Requests Desired Delivery Location: -- Education: -- Written Plan: -- Written Plan Location: -- Support Person/Desktop Support Technician Relationship to Pt: -- Oral Intake OB: -- Labor Preferences: -- Non-Medicinal Pain Relief: -- Anesthesia/Pain Medication During Labor: Epidural, IV narcotic Delivery Plan: -- Infant Feeding: -- Circumcision: -- Baby For Adoption: -- Patient Requests: -- Father of the Baby's Name: -- Senior Software Developer Selected: -- Surrogate : -- Support Person's Name: -- SAMANTHA DERAS : [birth year] Education Educational Materials/Leaflets Provided Title/Topic Date Provided [facility] Post Discharge Instructions 01/20/22 SAMANTHA DERAS : [birth year] Registration and Information Race: White Ethnicity: Not , , or Green[place]ic Origin Marital Status: Language(s): Azeri Yazdanism Preference(s): Pentecostalism Occupation/Education: See social history above if documented. Address, Phone, and Health Plans Home Address: [facility] [place], [place] [id number] Phone: --, , -- Health Plans: 1 - [facility] Member/Group: [id number] Deductible: $ -- Type: [facility] Address: [address] [address], [place], [place] [id number] General Information OB Provider(s) Information: Not explicitly recorded. May be noted in encounter section below. See below for detailed information for all visits and information. Delivery Center/Hospital Information: -- Provider Information: -- Referring Provider Information: Dipika Chung MD, FACOG Primary Provider Information: -- /Partner Information: CHAVEZ WANG Support Person Information: -- Planned/Unplanned : -- Date Consent Signed for Tubal Ligation: -- Date Record Sent to Hospital: -- SAMANTHA DERAS : [birth year] Visits and Encounters (Known encounters since 04/10/2021. May include lab encounters.) Date Location Provider Type Medical Service 02/01/2022 4 Dipika Chung MD, FACOG Clinic Clinic 01/19/2022 A Dipika Chung MD, [facility] Inpatient Inpatient 01/16/2022 [facility] Dipika Chung MD, FACOG Clinic Clinic 01/09/2022 1 Juan Gandhi MD Clinic Clinic 01/02/2022 3 Juan Gandhi MD Client Clinic 12/26/2021 [facility] Juan Gandhi MD Nonpatient Lab 12/26/2021 1 Juan Gandhi MD Clinic Clinic 11/25/2021 [facility] [id number] -DIPIKA CHUNG History Obstetrics 10/31/2021 [facility] [id number] -DIPIKA CHUNG History Radiology 10/31/2021 [facility] Jovan Delgado History Multiple Outpatient 09/09/2021 [facility] Jovan Delgado History Laboratory 09/09/2021 [facility] Juan Gandhi MD History Radiology 06/20/2021 [facility] [id number] -JOHNDIPIKA WOODALL Laboratory SAMANTHA DERAS : [birth year] Visit / Encounter Location Information The following information represents known location and contact information for locations visitedduring [facility] Business Address: [address] [place] [address] Phone:[phone] [facility] [place] Address: No addresses found on file for location Phone: No phone numbers found on file for location SAMANTHA DERAS : [birth year] Visit Diagnosis (Note: All diagnoses documented since 04/10/2021) 01/19/22 - Encounter for supervision of other normal , third trimester (ICD-10-CM: Z34.83,Date: ) 01/19/22 - Personal history of COVID-19 (ICD-10-CM: Z86.16, Date: ) 01/19/22 - Allergy status to other drugs, medicaments and biological substances (ICD-10-CM: Z88.8, Date: ) 01/19/22 - 40 weeks gestation of (ICD-10-CM: Z3A.40, Date: ) 01/19/22 - Precipitate labor (ICD-10-CM: O62.3, Date: ) 01/19/22 - Single live (ICD-10-CM: Z37.0, Date: ) 01/19/22 - Post-term (ICD-10-CM: O48.0, Date: ) 01/19/22 - Encounter for routine follow-up (ICD-10-CM: Z39.2, Date: 01/19/22) 01/19/22 - state, incidental (ICD-10-CM: Z33.1, Date: 01/19/22) 01/09/22 - state, incidental (ICD-10-CM: Z33.1, Date: 01/09/22) 01/02/22 - state, incidental (ICD-10-CM: Z33.1, Date: 01/02/22) 12/26/21 - state, incidental (ICD-10-CM: Z33.1, Date: 12/26/21) 12/26/21 - Encounter for supervision of normal first , third trimester (ICD-10-CM: Z34.03,Date: ) 12/26/21 - 37 weeks gestation of (ICD-10-CM: Z3A.37, Date: ) 12/26/21 - Encounter for supervision of normal first , third trimester (ICD-10-CM: Z34.03,Date: ) 12/26/21 - Encounter for supervision of normal first , third trimester (ICD-10-CM: Z34.03,Date: ) 12/26/21 - state, incidental (ICD-10-CM: Z33.1, Date: 12/26/21) SAMANTHA DERAS : [birth year] Delivery Summary Baby A Membrane Status Information ROM Date/Time: 01/19/22 02:56:00 Amniotic Fluid Color/Description: Clear Premature Rupture of Membranes: No Prolonged Rupture of Membranes: No Labor Information Labor Onset Methods: Spontaneous Precipitous Labor: No Prolonged Labor: No Monitoring FHR Monitoring Method: External electrode patch Delivery Information Delivery Type: Vaginal Delivery of Head Date/Time: 01/19/22 04:06:00 Date/Time of : 01/19/22 04:06:00 Placenta Delivery Date/Time: 01/19/22 04:15:00 Placenta Delivery Method: Spontaneous Placenta to Pathology: Yes Cord Blood Banking: No Cord Blood Sent to Lab: Yes Maternal Delivery Complications: None Attending Physician: Dipika Chung MD, FACOG Information Risk Factors: None Complications: None Umbilical Cord Description: 3 vessel cord Data Gender: Male ID Band Number: [id number] Outcome: Live Security Tag Number: [id number] Weight: 3.260 kg Score 1 Minute: 9 Score 5 Minute: 9 Senior Software Developer: Abi Cespedes APRN Note: Items documented with '--' had no clinical data which qualified at time of report creation END OF REPORT Note * Rita Manzo: PERFORM Event Display: Pathology Narrative Note Authored Date: Patient Care team information Care Team Personnel Name: DONNA JORDAN APRN Position: No Access Member Role: Primary Care Physician Address: [address] [place] [address] Care Team Related Persons Name: BONITA WANG Name: CHAVEZ WANG Name: CHAVEZ WANG Insurance Providers Guarantor name: SAMANTHA DERAS [employer] Plan Information #: 1 Payer: KATLIN RYEES Member Number: NA Policy Number: NA
--- OUTSIDE RECORDS SUMMARY | 2024-03-28 20:15 | XMS_ITS | Clinical Summary ---
Author Organization [facility] Address [address] [place] [id number] Care Team Providers Care World Designer Name Role Phone Unavailable Primary Care Provider Unavailabl e Social History Tobacco Use Types Packs/Day Years Used Date Smoking Tobacco: Never Assessed Interpersonal Safety Answer Date Record ed Physically Hurt Never 02/17/2020 Verbally Threaten Not on file 02/17/2020 Comments Unknown Sex and Gender Information Value Date Recorded Sex Assigned at Not on file Legal Sex Female 16:48 EDT Gender Identity Not on file Sexual Orientation Not on file Plan of Treatment Health Maintenance Due Date Last Done Comments Hepatitis C Screen 1990 Hepatitis B Vaccine (1 of 3 - 19+ 3-dose series) 11/19 COVID-19 Vaccine ( season) 2023
--- OUTSIDE RECORDS SUMMARY | 2024-03-28 20:15 | XMS_ITS | Encounter Summary ---
Author Organization [facility] Address [address] [place] [id number] Care Team Providers Care Pet Care Assistant Name Role Phone Unavailable Primary Care Provider Unavailabl e Encounter Details Date Type Department Care Team (Late st Contact Info) Description 02/11/2021 Lab Requisition [facility] Pathology & Laboratory Medicine - [address] [address] Outr Resulting Lab, Provider Social History Tobacco [...] Comments ZZCOVID-19 TEST [facility] LAB PCR Today 02/11/2021 9:30 EST COVID-19 TESTING Routine 02/11/2021 9:30 EST documented in this encounter Results * COVID-19 TEST [facility] PCR (02/11/2021 9:30 EST) Swab 02/11/2021 9:30 EST 02/11/2021 21:18 EST us Provider Outr Resulting Lab MICROBIOLOGY - GENER AL ORDERABLES Final Result [facility] [address] [place] [address] * COVID-19 TESTING (02/11/2021 9:30 EST) COVID-19 rt-PCR Result Negative Negative 02/12/2021 0:[address] [facility] Comment: This test has not [...] history, and epidemiological information. Performed on the CREOpointher Fusion instrument Performing Lab [place] [facility] Lab 02/12/2021 0:[address] [facility] Swab 02/11/2021 9:30 EST 02/11/2021 21:18 EST us Provider Outr Resulting Lab MICROBIOLOGY - GENER AL ORDERABLES Final Result [facility] [address] [place] [address] documented in this encounter Visit Diagnoses Not on filedocumented in this encounter
--- OUTSIDE RECORDS SUMMARY | 2024-03-28 20:15 | XMS_ITS | Continuity of Care Document ---
Author Organization [facility] Address [address] [place] [address] [facility]counter [facility]BR [id number] Date(s): 01/09/22 - 01/09/22 [facility] [address] [place], [place] [address] Encounter Diagnosis (Discharge Diagnosis) - 01/09/22 Discharge Disposition: Home or Self Care Attending Physician: Juan Gandhi Allergies, Adverse Reactions, Alerts Substance Reaction Severity Status prednisoLONE 1 Moderate Active 1topical-mouth irritation Medications 19 (Waller) See Instructions, 0 Refill(s) Start Date: 12/26/21 Status: Ordered Problem List Condition Confirmation Course Effective Dates Status Health St atus Informant Confirmed 04/10/21 Active Results Most recent to oldest [Reference Range]: 1 Protein Urine Dipstick Negative (01/09/22 2:22 PM) Glucose Urine Dipstick Negative (01/09/22 2:22 PM) Vital Signs Most recent to oldest [Reference Range]: 1 Blood Pressure [90-140/60-90 mmHg] 104/6 2mmHg (01/09/22 2:22 PM) Weight 72.4 kg (01/09/22 2:22 PM) Pre- Weight 56.699 kg (01/09/22 2:22 PM) Height 154.94 cm (01/09/22 2:22 PM) Social History Social History Type Response Sex Female
--- OUTSIDE RECORDS SUMMARY | 2024-03-28 20:15 | XMS_ITS | Encounter Summary ---
Author Organization [facility] Address [address] [place] [address] Care Team Providers Care Quality Improvement Manager Name Role Phone Unavailable Primary Care Provider Unavailabl e Encounter Details Date Type Department Care Team (Late st Contact Info) Description 03/16/2021 Lab Requisition [facility] Pathology & Laboratory Medicine - [address] [address] Outr Resulting Lab, Provider Social History Tobacco [...] Comments ZZCOVID-19 TEST [facility] LAB PCR Today 03/16/2021 8:30 EST COVID-19 TESTING Routine 03/16/2021 8:30 EST documented in this encounter Results * COVID-19 TEST [facility] PCR (03/16/2021 8:30 EST) Swab 03/16/2021 8:30 EST 03/16/2021 23:13 EST us Provider Outr Resulting Lab MICROBIOLOGY - GENER AL ORDERABLES Final Result [facility] [address] [place] [address] * COVID-19 TESTING (03/16/2021 8:30 EST) COVID-19 rt-PCR Result Negative Negative 03/17/2021 16:44 EST [facility] Comment: This test has not [...] history, and epidemiological information. Performed on the Zvooqher Fusion instrument Performing Lab [place] [facility] Lab 03/17/2021 16:44 EST [facility] Swab 03/16/2021 8:30 EST 03/16/2021 23:13 EST us Provider Outr Resulting Lab MICROBIOLOGY - GENER AL ORDERABLES Final Result [facility] [address] [place] [address] documented in this encounter Visit Diagnoses Not on filedocumented in this encounter
--- OUTSIDE RECORDS SUMMARY | 2024-03-28 20:15 | XMS_ITS | Encounter Summary ---
Author Organization [facility] Address [address] [place] [address] Care Team Providers Care Stone Chimney Mason Name Role Phone Unavailable Primary Care Provider Unavailabl e Encounter Details Date Type Department Care Team (Late st Contact Info) Description 03/28/2021 Lab Requisition [facility] Pathology & Laboratory Medicine - [facility] [address] [place] [address] Outr Resulting Lab, Provider Social History Tobacco [...] Comments ZZCOVID-19 TEST [facility] LAB PCR Today 03/28/2021 12:45 EST COVID-19 TESTING Routine 03/28/2021 12:4 5 EST documented in this encounter Results * COVID-19 TEST [facility] PCR (03/28/2021 12:45 EST) Swab 03/28/2021 12:4 5 EST 03/28/2021 23:13 EST us Provider Outr Resulting Lab MICROBIOLOGY - GENER AL ORDERABLES Final Result [facility] [address] [place] [address] * COVID-19 TESTING (03/28/2021 12:45 EST) COVID-19 rt-PCR Result Negative Negative 03/29/2021 16:21 EST [facility] Comment: This test has [...] history, and epidemiological information. Performed on the Matchbook Fusion instrument Performing Lab [place] [facility] Lab 03/29/2021 16:21 EST [facility] Swab 03/28/2021 12:4 5 EST 03/28/2021 23:13 EST us Provider Outr Resulting Lab MICROBIOLOGY - GENER AL ORDERABLES Final Result [facility] [address] [place] [address] documented in this encounter Visit Diagnoses Not on filedocumented in this encounter
--- OUTSIDE RECORDS SUMMARY | 2024-03-28 20:15 | XMS_ITS | Encounter Summary ---
Author Organization [facility] Address [address] [place] [address] Care Team Providers Care Automation Driver Name Role Phone Unavailable Primary Care Provider Unavailabl e Encounter Details Date Type Department Care Team (Late st Contact Info) Description 04/11/2021 Lab Requisition [facility] Pathology & Laboratory Medicine - [facility] [address] [place] [address] Outr Resulting Lab, Provider Social History Tobacco [...] Comments ZZCOVID-19 TEST [facility] LAB PCR Today 04/11/2021 11:40 EST COVID-19 TESTING Routine 04/11/2021 11:4 0 EST documented in this encounter Results * COVID-19 TEST [facility] PCR (04/11/2021 11:40 EST) Swab 04/11/2021 11:4 0 EST 04/11/2021 21:06 EST us Provider Outr Resulting Lab MICROBIOLOGY - GENER AL ORDERABLES Final Result [facility] [address] [place] [address] * COVID-19 TESTING (04/11/2021 11:40 EST) COVID-19 rt-PCR Result Negative Negative 04/12/2021 0:55 EST [facility] Comment: This test has not [...] history, and epidemiological information. Performed on the [employer] Fusion instrument Performing Lab [place] [facility] Lab 04/12/2021 0:55 EST [facility] Swab 04/11/2021 11:4 0 EST 04/11/2021 21:06 EST us Provider Outr Resulting Lab MICROBIOLOGY - GENER AL ORDERABLES Final Result [facility] [address] [place] [address] documented in this encounter Visit Diagnoses Not on filedocumented in this encounter
--- OUTSIDE RECORDS SUMMARY | 2024-03-28 20:15 | XMS_ITS | Encounter Summary ---
Author Organization [facility] Address [address] [place] [address] Care Team Providers Care Acute Care Surgeon Name Role Phone Unavailable Primary Care Provider Unavailabl e Encounter Details Date Type Department Care Team (Late st Contact Info) Description 02/17/2021 Lab Requisition [facility] Pathology & Laboratory Medicine - [address] [address] Outr Resulting Lab, Provider Social History Tobacco [...] Priority Date/Time Associated Diagnosis Comments ZZCOVID-19 TEST [facility] PCR Today 02/16/2021 10:02 EST COVID-19 TESTING Routine 02/16/2021 10:0 2 EST documented in this encounter Results * COVID-19 TEST [facility] PCR (02/16/2021 10:02 EST) Swab 02/16/2021 10:0 2 EST 02/18/2021 15:45 EST us Provider Outr Resulting Lab MICROBIOLOGY - GENER AL ORDERABLES Final Result [facility] [address] [place] [address] * COVID-19 TESTING (02/16/2021 10:02 EST) COVID-19 rt-PCR Result Negative Negative 02/18/2021 18:59 EST [facility] Comment: This test has [...] history, and epidemiological information. Performed on the Learn [employer] Homer Fusion instrument Performing Lab [place] [facility] Lab 02/18/2021 18:59 EST [facility] Swab 02/16/2021 10:0 2 EST 02/18/2021 15:45 EST us Provider Outr Resulting Lab MICROBIOLOGY - GENER AL ORDERABLES Final Result [facility] [address] [place] [address] documented in this encounter Visit Diagnoses Not on filedocumented in this encounter
--- OUTSIDE RECORDS SUMMARY | 2024-03-28 20:15 | XMS_ITS | Continuity of Care Document ---
Author Organization [facility] Ambulatory Clinics Address [address] [place] [address] Care Team Providers Care Employee Relations Consultant Name Role Phone DONNA JORDAN APRN Primary Care Physician Encounter [facility] NBR [id number] Date(s): 02/26/24 - 02/26/24 [facility] Ambulatory Clin[facility] [address] [place] [address]- [place] Encounter Diagnosis IUD check up(Discharge Diagnosis) - 02/26/24 Discharge Disposition: Home or Self Care Attending Physician: Rashad Claudio MD Allergies, Adverse Reactions, Alerts Substance Criticality Severity Reaction Reaction Severity Status prednisoLONE 1 High criticality Moderate Oral blisters Active Celery High criticality Severe Act desire 1topical-mouth irritation Assessment and Plan Extracted from: Title:Office Visit Note Author:Rashad Claudio MD D ate:02/26/24 1.??IUD check up??Z30.431 ??String check today.?? Follow-up??for routine well woman care. Medications Mirena 52 mg intrauteral device 0 Refill(s) Start Date: 02/20/24 Status: Ordered norethindrone 0.35 mg oral tablet 0.35 mg = 1 tab, Oral, Daily, # 84 tab, 3 Refill(s), Pharmacy: [facility], 154.94, cm, 01/19/22 5:08:00 EDT, Height/Length Dosing, 73, kg, 01/19/22 5:08:00 EDT, Weight Dosing Start Date: 02/01/22 Status: Ordered 19 (Jupiter) See Instructions, 0 Refill(s) Start Date: 12/26/21 Status: Ordered Valium 5 mg oral tablet See Instructions, 1 tab Orally times one 30 min prior to procedure. May repeat x 1 if needed., # 2 tab, 0 Refill(s), Pharmacy: [facility], 165.1, cm, 03/09/22 15:08:00 EST, Height, 59, kg, 01/03/24 16:19:00 EDT, Weight Dosing Start Date: 01/04/24 Status: Ordered Problem List Condition Confirmation Course Effective Dates Status H ealth Status Informant IUD check up Confirmed Active Obsessional thoughts Confirmed Active Oral contraception status Confirmed Active Women's annual routine gynecological examination Confirmed Active Contraceptive management Confirmed Active Procedures Procedure Date Related Diagnosis Body Site Status Knee 1 Completed Wrist Completed 1in high school Vital Signs Most recent to oldest [Reference Range]: 1 Blood Pressure [90-120/60-80 mmHg] 122/7 6mmHg *HI* (02/26/24 3:37 PM) Mean Arterial Pressure, Cuff [65-140 mmH g] 91 mmHg (02/26/24 3:37 PM) Weight 60.5 kg (02/26/24 3:37 PM) Weight Measured (lbs) 133.38 lb (02/26/24 3:37 PM) Weight Dosing 60.500 kg (02/26/24 3:37 PM) Social History Social History Type Response Smoking Status Smoking tobacco use: Never tobacco user;Never entered on: 01/03/24 Sex Female Sex Representation Female (finding) summary Document * Event Display: Summary Document Authored Date: [id number] SAMANTHA DERAS : 1990 Age: 31 Years SAMANTHA DERAS : [birth year] Summary (Date of Report: [...] GBS done. Vtx but high. SAMANTHA DERAS : [birth year] Problems (Active Problems Only) (SNOMED CT: [id number], Onset: 04/10/21) SAMANTHA DERAS: [birth year] Risk Factors and Genetic Screening All Results Documented Since 04/10/2021 Risk Factors (Current ) No risk factors have been recorded for this . Ethnic Screening No ethnicities have been recorded. Genetic Disorders Screening No genetic disorders have been recorded. SAMANTHA DERAS DOB: [birth year] Gestational Age (EGA) and SISI * [...] Integrity General: Intact (01/20/22) Mucous Membrane Color: [place] (01/20/22) Mucous Membrane Description: Moist (01/20/22) SAMANTHA [...] K/mcL 01/19/22 (40 weeks) (1.4 - 6.5) [place] Absolute (H) 1.1 K/mcL 01/19/22 (40 weeks) (0.1 - 0.6) Lymph Absolute 2.0 K/mcL 01/19/22 (40 weeks) (1.2 - 3.4) Baso Absolute 0.0 K/mcL 01/19/22 (40 weeks) (0.0 - 0.2) Basophil Auto (H) 0.3 % 01/19/22 (40 weeks) (0.0 - 0.2) [place] Auto (H) 10.8 % 01/19/22 (40 weeks) [...] Awareness No comments have been documented. SAMANTHA DERAS: [birth year] Allergies (Active and Proposed Allergies Only) Celery (Severity: Severe, Onset: Unknown) prednisoLONE (Severity: Moderate, Onset: Unknown) Comments: topical-mouth irritation SAMANTHA DERAS: [birth year] Medications Prescriptions and Home Medications Currently Active or Taking acetaminophen 325 mg oral tablet (Historically recorded) SI mg = 2 tab, Oral, every 4 hr, PRN: pain, 0 Refill(s) Ordered: 01/20/22 Provider: Dipika Chung MD, FACOG benzocaine-menthol 20%-0.5% topical spray (Historically recorded) SI tari, Topical, As Directed, PRN: other (see comment), 0 Refill(s) Ordered: 01/20/22 Provider: Dipika Chung MD, FACOG docusate-senna 50 mg-8.6 mg oral tablet (Historically recorded) SI tab, Oral, BID, PRN: constipation, 0 Refill(s) Ordered: 01/20/22 Provider: Dipika Chung MD, FACOG ferrous sulfate 325 mg (65 mg elemental iron) oral delayed release tablet (Historically recorded) SI mg = 1 tab, Oral, Daily, 0 Refill(s) Ordered: 01/20/22 Provider: Dipika Chung MD, FACOG ibuprofen 600 mg oral tablet (Historically recorded) SI mg = 1 tab, Oral, every 4 hr, PRN: pain, 0 Refill(s) Ordered: 01/20/22 Provider: Dipika Chung MD, FACOG norethindrone 0.35 mg oral tablet SI.35 mg = 1 tab, Oral, Daily, 84 tab, 4 Refill(s) Ordered: 01/20/22 Provider: Dipika Chung MD, FACOG 19 (Jupiter) (Historically recorded) SIG: See Instructions, 0 Refill(s) [...] Status: Completed Ordered: 01/19/22 Provider: DomainUser, Generated oxytocin 10 units = 1 mL, N/A, Once Status: Completed Ordered: 01/19/22 Provider: WillieUser, Generated acetaminophen (Acetaminophen 325 mg Tab [LTTL]) 650 mg = 2 tab, Oral, every 4 hr, PRN: pain Status: Discontinued Ordered: 01/19/22 Provider: Dipika Chung MD, FACOG benzocaine-menthol 20%-0.5% topical spray (Benzocaine-Menthol Topical [place] [LTTL]) 1 tari, Topical, As Directed, PRN: other (see comment) Status: Discontinued Ordered: 01/19/22 Provider: Dipika Chung MD, FACOG benzocaine-menthol 20%-0.5% topical spray (Benzocaine-Menthol Topical [place] [LTTL]) 1 tari, Topical, As Directed, PRN: other (see comment) Status: Discontinued Ordered: 01/19/22 Provider: Dipika Chung MD, FACOG calcium (as carbonate) 500 mg oral tablet (Calcium Carbonate 500 mg Chew Tab (Tums) [LTTL]) 500 mg = 1 tab, Oral, every 2 hr, PRN: dyspepsia Status: Discontinued Ordered: 01/19/22 Provider: Dipika Chung MD, FACOG calcium (as carbonate) 500 mg oral tablet (Calcium Carbonate 500 mg Chew Tab (Tums) [LTTL]) 1,000 mg = 2 tab, Oral, every 2 hr, PRN: dyspepsia Status: Discontinued Ordered: 01/19/22 Provider: Dipika Chung MD, FACOG calcium (as carbonate) 500 mg oral tablet (Calcium Carbonate 500 mg Chew Tab (Tums) [LTTL]) 1,000 mg = 2 tab, Oral, every 2 hr, PRN: dyspepsia Status: Discontinued Ordered: 01/19/22 Provider: Dipika Chung MD, FACOG calcium (as carbonate) 500 mg oral tablet (Calcium Carbonate 500 mg Chew Tab (Tums) [LTTL]) 500 mg = 1 tab, Oral, every 2 hr, PRN: dyspepsia Status: Discontinued Ordered: 01/19/22 Provider: Dipika Chung MD, FACOG docusate-senna 50 mg-8.6 mg oral tablet (Senna-Docusate 8.6 mg-50 mg Tab [LTTL]) 1 tab, Oral, BID, PRN: constipation Status: Discontinued Ordered: 01/19/22 Provider: Dipika Chung MD, FACOG docusate-senna 50 mg-8.6 mg oral tablet (Senna-Docusate [...] 01/19/22 Provider: Dipika Chung MD, FACOG witch chepe 50% rectal pad (Witch Chepe 50% Top Pad [LTTL]) 1 tari, Topical, As Directed, PRN: other (see comment) Status: Discontinued Ordered: 01/19/22 Provider: Dipika Chung MD, FACOG witch chepe 50% rectal pad (Witch Chepe 50% Top Pad [LTTL]) 1 tari, Topical, As Directed, PRN: other (see comment) Status: Discontinued Ordered: 01/19/22 Provider: Dipika Chung MD, FACOG SAMANTHA DERAS: [birth year] Immunizations No immunizations have been administered [...] Live Sex: Male Wt: 3289 g Hospital: [facility] Comment: Nitrous GBS positive SAMANTHA DERAS : [...] active psychosocial history has been recorded SAMANTHA DERAS: [birth year] Infection History Infection history negative or not recorded SAMANTHA DERAS DOB: [birth year] Anesthesia and Transfusions Prior Anesthesia or Transfusion Received: -- Prior Anesthesia Reaction(s): -- Prior Transfusion Reaction(s): -- Blood Transfusion Acceptable to Patient: -- SAMANTHA DERAS : [birth year] Plan and Patient Requests Desired Delivery Location: -- Education: -- Written Plan: -- Written Plan Location: -- Support Person/Regrinder Relationship to Pt: -- Oral Intake OB: -- Labor Preferences: -- Non-Medicinal Pain Relief: -- Anesthesia/Pain Medication During Labor: Epidural, IV narcotic Delivery Plan: -- Infant Feeding: -- Circumcision: -- Baby For Adoption: -- Patient Requests: -- Father of the Baby's Name: -- Building Materials Sales Attendant Selected: -- Surrogate : -- Support Person's Name: -- SAMANTHA DERAS : [birth year] Education Educational Materials/Leaflets Provided Title/Topic Date Provided [facility] Post Discharge Instructions 01/20/22 SAMANTHA DERAS : [birth year] Registration and Information Race: White Ethnicity: Not , , or Puerto Rican Origin Marital Status: Language(s): Albanian Hindu Preference(s): Shinto Occupation/Education: See social history above if documented. Address, Phone, and Health Plans Home Address: [address] [place] [id number] Phone: --, , -- Health Plans: 1 - BS Member/Group: [id number] Deductible: $ -- Type: [facility] Address: [address] [phone] General Information OB Provider(s) Information: Not explicitly recorded. May be noted in encounter section below. See below for detailed information for all visits and information. Delivery Center/Hospital Information: -- [place] Provider Information: -- Referring Provider Information: Dipika Chung [place] [facility] Provider Information: -- /Partner Information: CHAVEZ WANG Support Person Information: -- Planned/Unplanned : -- Date Consent Signed for Tubal Ligation: -- Date Record Sent to Hospital: -- SAMANTHA DERAS : [birth year] Visits and Encounters (Known encounters since 04/10/2021. May include lab encounters.) Date Location Provider Type Medical Service 02/01/2022 4 Dipika Chung [place], [facility]/19/2022 A Dipika Chung MD, [facility] [place] 01/16/2022 [facility] Dipika Chung MD, [facility] [place] 01/09/2022 1 Juan Gandhi MD Clinic Clinic 01/02/2022 3 Juan Gandhi MD Client Clinic 12/26/2021 [facility] Juan Gandhi MD Nonpatient Lab 12/26/2021 1 Juan Gandhi MD Clinic Clinic 11/25/2021 [facility] DIPIKA CHACON History Obstetrics 10/31/2021 [facility] DIPIKA CHACON History Radiology 10/31/2021 [facility] Jovan Delgado History Multiple Outpatient 09/09/2021 [facility] Jovan Delgado History Laboratory 09/09/2021 [facility] Juan Gandhi MD History Radiology 06/20/2021 [facility] [id number] -DIPIKA CHUNG [facility] SAMANTHA DERAS : [birth year] Visit / Encounter Location Information The following information represents known location and contact information for locations visitedduring [facility] Ambulatory Clinics Business Address: [address] [place] [address] Phone:[phone] [facility] Address: No addresses found on file for [...] None Umbilical Cord Description: 3 vessel cord Infant Data Gender: Male ID Band Number: [id number] Outcome: Live Security Tag Number: [id number] Weight: 3.260 kg Score 1 Minute: 9 Score 5 Minute: 9 Building Materials Sales Attendant: Abi Cespedes APRN Note: Items documented with '--' had no clinical data which qualified at time of report creation END OF REPORT Note * Rita Manzo: PERFORM Event Display: Pathology Narrative Note Authored Date: Physician Outpatient Note * Rashad Claudio MD: PERFORM Event Display: Office Clinic Note Physician Authored Date: [id number] SAMANTHA DERAS :1990 Age:33 years Sex:Female Visit Date:02/26/2024 Primary Care Physician: DONNA JORDAN APRN Chief Complaint Mirena insert was on 01/17/24. Last pap: 01/03/24 NILM, HPV aptima neg. Bleed for a month, stopped about a week ago. This past weekend string poking/stratching her, went about her day and the feeling went away. History of Present Illness 33-year-old presents today for IUD check.?? She is status post Mirena IUD insertion 6 weeks ago. ??She is doing well. ??She does report having had almost daily bleeding for the first??4 weeks but nowthis is resolved.?? She has no pain.?? We had discussed??potential??prolapse at her previous visit.??She was concerned about a potential cystocele. ??I had not necessarily noted this on her previousexam??but she does feel that she is able to??visualize??some degree of prolapse at the introitus. Review of Systems As per HPI Physical Exam Vitals & Measurements BP:??122/76?? WT:??60.5??kg?? Pelvic: A speculum examination was performed. ??The IUD strings were visualized at the external os.?? On exam??I did have the patient demonstrate??the area of concern with a mirror.?? There was some prominence of the mucosa at the level of Lewes's gland but?this is symmetrical??with the oppositeside??and there are no palpable??masses or cysts??noted. Assessment/Plan 1.??IUD check up??Z30.431 ??String check today.?? Follow-up??for routine well woman care. Problem List/Past Medical History Ongoing Contraceptive management IUD check up Obsessional thoughts Oral contraception status Women's annual routine gynecological examination Historical Procedure/Surgical History ???Knee???Wrist Medications Mirena 52 mg intrauteral device norethindrone 0.35 mg oral tablet, 0.35 mg= 1 tab, Oral, Daily, 3 refills 19 (Jupiter), See Instructions Valium 5 mg oral tablet, See Instructions Allergies Celery prednisoLONE??(Oral blisters) Social History Alcohol Current, Cider. , 1-2 times per week Electronic Cigarette/Vaping Electronic Cigarette Use: Never. Employment/School Employed, Work/School description: [employer]. Home/Environment Lives with Children, Spouse. Living situation: Home/Independent. Sexual Sexually active: No. Substance Use Never Tobacco Never tobacco user Tobacco Use:. Never Smokeless Tobacco use:. Family History Cancer: Other. Electronically Signed on 02/26/2024 19:01 EST Rashad Claudio MD Patient Care team information Care Team Personnel Name: DONNA JORDAN APRN Position: No Access Member Role: Primary Care Physician Address: [address] [place] [address] Care Team Related Persons Name: BONITA WANG Name: CHAVEZ WANG Name: CHAVEZ WANG Insurance Providers Guarantor name: SAMANTHA DERAS Health Plan Information #: 1 Payer: BS Member Number: [id number] Policy Number: [employer] Health Plan Information #: 2 Payer: BC BS Member Number: [id number] Policy Number: [id number]
--- OUTSIDE RECORDS SUMMARY | 2024-03-28 20:15 | XMS_ITS | Continuity of Care Document ---
Author Organization [facility] Address [address] [place] [address] Care Team Providers Care Director Of Event Marketing Name Role Phone DONNA JORDAN APRN Primary Care Physician Encounter [facility] NBR [id number] Date(s): 01/02/24 - 01/02/24 [facility] [address], [place] [address] Discharge Disposition: Home or Self Care Attending Physician: DONNA JORDAN APRN Admitting Physician: DONNA JORDAN APRN Referring Physician: DONNA JORDAN APRN Allergies, Adverse Reactions, Alerts Substance Criticality Severity Reaction Reaction Severity Status prednisoLONE 1 High criticality Moderate Active Celery High criticality Severe Act desire 1topical-mouth irritation Assessment and Plan Future Appointments Medications norethindrone 0.35 mg oral tablet 0.35 mg = 1 tab, Oral, Daily, # 84 tab, 3 Refill(s), Pharmacy: [facility], 154.94, cm, 01/19/22 5:08:00 EDT, Height/Length Dosing, 73, kg, 01/19/22 5:08:00 EDT, Weight Dosing Start Date: 02/01/22 Status: Ordered 19 ([place]) See Instructions, 0 Refill(s) Start Date: 12/26/21 Status: Ordered Problem List Condition Confirmation Course Effective Dates Status H ealth Status Informant Obsessional thoughts Confirmed Active Oral contraception status Confirmed Active Procedures Procedure Date Related Diagnosis Body Site Status Knee 1 Completed Wrist Completed 1in high school Results Radiology Reports * Exam Date Time Procedure Performing Provider Status 01/02/24 3:49 PM US Pelvic Complete Hiedi, Paula Maida; Au (Verified) Notes: (US Pelvic Complete) Reason For Exam: prolapse of female genital organs US Pelvic Complete EXAM DESCRIPTION: US Pelvic Complete 01/02/2024 INDICATION: PROLAPSE OF FEMALE GENITAL ORGANS TECHNIQUE: Transvaginal Grayscale and color Doppler ultrasound examination of the pelvis. COMPARISON: None FINDINGS: The uterus measures 4.4 cm x 8.1 cm x 6 cm. No focal uterine lesion The endometrial stripe thickness is 9.3 mm. The left ovary measures 3.1 cm x 3.9 cm x 3.3 cm. Ovoid anechoic lesion on the left ovary with through transmission consistent with simple cyst measuring 2.6 x 2.2 x 2 cm. The right ovary measures 1.6 cm x 2.3 cm x 1.7 cm. No suspicious right ovarian lesion. No free fluid. IMPRESSION: Simple left ovarian cyst measuring 2.7 x 2.2 x 2 cm. Normal uterus and right ovary No free fluid. JOB #: [id number] Final Signed by: Rashad Tsang MD Signed (Electronic Signature): 01/02/2024 4:17 pm Social History Social History Type Response Tobacco Never tobacco user T obacco Use:. Sex Female Sex Representation Female (finding) summary Document * Event Display: Summary Document Authored Date: [id number] SAMANTHA DERAS : 1990 Age: 31 Years [...] (39 weeks) By: Juan Gandhi MD Some s, baby is low Date: 12/27/21 07:40 (37 weeks) By: Juan Gandhi MD Late entry: GBS done. Vtx but high. SAMANTHA DERAS DOB: [birth year] Problems (Active Problems Only) (SNOMED CT: [id number], Onset: 04/10/21) SAMANTHA DERAS: [birth year] Risk Factors [...] Integrity General: Intact (01/20/22) Mucous Membrane Color: [place] (01/20/22) Mucous Membrane Description: Moist (01/20/22) SAMANTHA [...] K/mcL 01/19/22 (40 weeks) (1.4 - 6.5) [place] Absolute (H) 1.1 K/mcL 01/19/22 (40 weeks) (0.1 - 0.6) Lymph Absolute 2.0 K/mcL 01/19/22 (40 weeks) (1.2 - 3.4) Baso Absolute 0.0 K/mcL 01/19/22 (40 weeks) (0.0 - 0.2) Basophil Auto (H) 0.3 % 01/19/22 (40 weeks) (0.0 - 0.2) [place] Auto (H) 10.8 % 01/19/22 (40 weeks) [...] No comments have been documented. SAMANTHA DERAS DOB: [birth year] Allergies (Active and Proposed Allergies Only) Celery (Severity: Severe, Onset: Unknown) prednisoLONE (Severity: Moderate, Onset: Unknown) Comments: topical-mouth irritation SAMANTHA DERAS DOB: [birth year] Medications Prescriptions and Home Medications Currently Active or Taking acetaminophen 325 mg oral tablet (Historically recorded) SI mg = 2 tab, Oral, every 4 hr, PRN: pain, 0 Refill(s) Ordered: 10/28/22 Provider: Dipika Lopez MD, FACOG benzocaine-menthol 20%-0.5% topical spray (Historically recorded) SI tari, Topical, As Directed, PRN: other (see comment), 0 Refill(s) Ordered: 01/20/22 Provider: Dipika Lopez MD, FACOG docusate-senna 50 mg-8.6 mg oral tablet (Historically recorded) SI tab, Oral, BID, PRN: constipation, 0 Refill(s) Ordered: 01/20/22 Provider: Dipika Lopez MD, FACOG ferrous sulfate 325 mg (65 mg elemental iron) oral delayed release tablet (Historically recorded) SI mg = 1 tab, Oral, Daily, 0 Refill(s) Ordered: 01/20/22 Provider: Dipika Lopez MD, FACOG ibuprofen 600 mg oral tablet (Historically recorded) SI mg = 1 tab, Oral, every 4 hr, PRN: pain, 0 Refill(s) Ordered: 01/20/22 Provider: Dipika Lopez MD, FACOG norethindrone 0.35 mg oral tablet SI.35 mg = 1 tab, Oral, Daily, 84 tab, 4 Refill(s) Ordered: 01/20/22 Provider: Dipika Lopez MD, FACOG 19 ([place]) (Historically recorded) SIG: See Instructions, 0 Refill(s) Ordered: 12/26/21 Provider: -- witch chepe 50% rectal pad (Historically recorded) SI tari, Topical, As Directed, PRN: other (see comment), 0 Refill(s) Ordered: 01/20/22 Provider: Dipika Lopez MD, FACOG Inactive or Suspended (Prescriptions and documented medications since 01/08/21) No medications have been recorded Medication Administrations In-Office/Hospital (All in-office/hospital administrated medications ordered since 01/08/21) ferrous sulfate (Ferrous Sulfate 325 mg Tab [LTTL]) 325 mg = 1 tab, Oral, Daily Status: Canceled Ordered: 01/19/22 Provider: Dipika Lopez MD, FACOG multivitamin, (Multiple Vitamins [LTTL]) 1 tab, Oral, Daily Status: Canceled Ordered: 01/19/22 Provider: Dipika Lopez MD [facility] acetaminophen 650 mg = 2 tab, N/A, Once Status: Completed Ordered: 01/19/22 Provider: [employer]User, Generated ibuprofen 600 mg = 1 tab, [...] pain Status: Discontinued Ordered: 01/19/22 Provider: Dipika Lopez MD, TRISTAOG benzocaine-menthol 20%-0.5% topical spray (Benzocaine-Menthol Topical [place] [LTTL]) 1 tari, Topical, As Directed, PRN: other (see comment) Status: Discontinued Ordered: 01/19/22 Provider: Dipika Lopez MD, TRISTAOG benzocaine-menthol 20%-0.5% topical spray (Benzocaine-Menthol Topical [place] [LTTL]) 1 tari, Topical, As Directed, PRN: other (see comment) Status: Discontinued Ordered: 01/19/22 Provider: Dipika Lopez MD, TRISTAOG calcium (as carbonate) 500 mg oral tablet (Calcium Carbonate 500 mg Chew Tab (Tums) [LTTL]) 500 mg = 1 tab, Oral, every 2 hr, PRN: dyspepsia Status: Discontinued Ordered: 01/19/22 Provider: Dipika Lopez MD, TRISTAOG calcium (as carbonate) 500 mg oral tablet (Calcium Carbonate 500 mg Chew Tab (Tums) [LTTL]) 1,000 mg = 2 tab, Oral, every 2 hr, PRN: dyspepsia Status: Discontinued Ordered: 01/19/22 Provider: Dipika Lopez MD, TRISTAOG calcium (as carbonate) 500 mg oral tablet (Calcium Carbonate 500 mg Chew Tab (Tums) [LTTL]) 1,000 mg = 2 tab, Oral, every 2 hr, PRN: dyspepsia Status: Discontinued Ordered: 01/19/22 Provider: Dipika Lopez MD, FACOG calcium (as carbonate) 500 mg oral tablet (Calcium Carbonate 500 mg Chew Tab (Tums) [LTTL]) 500 mg = 1 tab, Oral, every 2 hr, PRN: dyspepsia Status: Discontinued Ordered: 01/19/22 Provider: Dipika Lopez MD, FACOG docusate-senna 50 mg-8.6 mg oral tablet (Senna-Docusate 8.6 mg-50 mg Tab [LTTL]) 1 tab, Oral, BID, PRN: constipation Status: Discontinued Ordered: 01/19/22 Provider: Dipika Lopez MD, FACOG docusate-senna 50 mg-8.6 mg oral tablet (Senna-Docusate 8.6 mg-50 mg Tab [LTTL]) 1 tab, Oral, BID, PRN: constipation Status: Discontinued Ordered: 01/19/22 Provider: Dipika Lopez MD, FACOG ferrous sulfate (Ferrous Sulfate 325 mg Tab [LTTL]) 325 mg = 1 tab, Oral, Daily Status: Discontinued Ordered: 01/19/22 Provider: Dipika Lopez MD, FACOG ibuprofen (Ibuprofen 600 mg Tab [LTTL]) 600 mg = 1 tab, Oral, every 4 hr, PRN: pain Status: Discontinued Ordered: 01/19/22 Provider: Dipika Lopez MD, FACOG Lactated Ringers Injection 1,000 mL (Lactated Ringers 1,000 mL) 150 mL/hr, IV Status: Discontinued Ordered: 01/19/22 Provider: Dipika Lopez MD, FACOG multivitamin, (Multiple Vitamins [LTTL]) 1 tab, Oral, Daily Status: Discontinued Ordered: 01/19/22 Provider: Dipika Lopez MD, FACOG oxytocin (oxytocin 10 units/mL Inj 1ml Vial [LTTL]) 10 units = 1 mL, IM, Once, PRN: other (see comment) Status: Discontinued Ordered: 01/19/22 Provider: Dipika Lopez MD, FACOG simethicone (Simethicone 80 mg Chew Tab [LTTL]) 80 mg = 1 tab, Oral, As Directed, PRN: gas Status: Discontinued Ordered: 01/19/22 Provider: Dipika Lopez MD, FACOG simethicone (Simethicone 80 mg Chew Tab [LTTL]) 80 mg = 1 tab, Oral, As Directed, PRN: gas Status: Discontinued Ordered: 01/19/22 Provider: Dipika Lopez MD, FACOG sodium chloride 0.9% flush (Sodium Chloride 0.9% Flush IV Mayra 10 mL [LTTL]) 10 mL, IV Flush, As Directed, PRN: other (see comment) Status: Discontinued Ordered: 01/19/22 Provider: Dipika Lopez MD, FACOG witch chepe 50% rectal pad (Witch Chepe 50% Top Pad [LTTL]) 1 tari, Topical, As Directed, PRN: other (see comment) Status: Discontinued Ordered: 01/19/22 Provider: Dipika Lopez MD, FACOG witreinaldo chepe 50% rectal pad (Witch Chepe 50% Top Pad [LTTL]) 1 tari, Topical, As Directed, PRN: other (see comment) Status: Discontinued Ordered: 01/19/22 Provider: Dipika Lopez MD, FACOG SAMANTHA DERAS : [birth year] Immunizations [...] Live Sex: Male Wt: 3289 g Hospital: [facility] Comment: Nitrous GBS positive SAMANTHA DERAS DOB: [birth year] Medical History Past Medical History No [...] Approach Age: 31 Years Date: 01/19/2022 SAMANTHA DERAS: [birth year] Social & Psychosocial History Social History Tobacco Never tobacco user Tobacco Use:. Electronic Cigarette/Vaping Electronic Cigarette Use: Never. Psychosocial History No active psychosocial history has been recorded SAMANTHA DERAS: [birth year] Infection History Infection history negative or not recorded SAMANTHA DERAS : [birth year] Anesthesia and Transfusions Prior Anesthesia or Transfusion Received: -- Prior Anesthesia Reaction(s): -- Prior Transfusion Reaction(s): -- Blood Transfusion Acceptable to Patient: -- SAMANTHA DERAS : [birth year] Plan and Patient Requests Desired Delivery Location: -- Education: -- Written Plan: -- Written Plan Location: -- Support Person/Forming Press Operator Relationship to Pt: -- Oral Intake OB: -- Labor Preferences: -- Non-Medicinal Pain Relief: -- Anesthesia/Pain Medication During Labor: Epidural, IV narcotic Delivery Plan: -- Feeding: -- Circumcision: -- Baby For Adoption: -- Patient Requests: -- Father of the Baby's Name: -- Multimedia Journalist Selected: -- Surrogate : -- Support Person's Name: -- SAMANTHA DERAS : [birth year] Education Educational Materials/Leaflets Provided Title/Topic Date Provided [facility] Post Discharge Instructions 01/20/22 SAMANTHA DERAS : [birth year] Registration and Information Race: White Ethnicity: Not , , or Citizen Of The [place] Origin Marital Status: Language(s): Citizen Of [place] [employer]ar[employer] Preference(s): Religious Occupation/Education: See social history above if documented. Address, Phone, and Health Plans Home Address: [address] [place] [phone] Phone: --, , -- Health Plans: 1 - [facility] Member/Group: [id number] Deductible: $ -- Type: [facility] Address: [address] [phone] General Information OB Provider(s) Information: Not explicitly recorded. May be noted in encounter section below. See below for detailed information for all visits and information. Delivery Center/Hospital Information: -- Provider Information: -- Referring Provider Information: Dipika Lopez MD, FACOG Primary Provider Information: -- /Partner Information: CHAVEZ WANG Support Person Information: -- Planned/Unplanned : -- Date Consent Signed for Tubal Ligation: -- Date Record Sent to Hospital: -- SAMANTHA DERAS : [birth year] Visits and Encounters (Known encounters since 04/10/2021. May include lab encounters.) Date Location Provider Type Medical Service 02/01/2022 4 Dipika Lopez MD, FACOG Clinic Clinic 01/19/2022 A Dipika Lopez MD, FACOG Inpatient Inpatient 01/16/2022 [facility]- Dipika Lopez MD, FACOG Clinic Clinic 01/09/2022 1 Juan Gandhi MD Clinic Clinic 01/02/2022 3 Juan Gandhi MD Client Clinic 12/26/2021 [facility] Juan Gandhi MD Nonpatient Lab 12/26/2021 1 Juan Gandhi MD Clinic Clinic 11/25/2021 [facility] [id number] ZHU History Obstetrics 10/31/2021 [facility] [id number] ZHU History Radiology 10/31/2021 [facility] Jovan Delgado History Multiple Outpatient 09/09/2021 [facility] Jovan Delgado History Laboratory 09/09/2021 [facility] Juan Gandhi MD History Radiology 06/20/2021 [facility] [id number] ZHU History Laboratory SAMANTHA DERAS DOB: [birth year] Visit / Encounter Location Information The following information represents known location and contact information for locations visitedduring [facility] Ambulatory Clinics Business Address: [address] [place] [address] Phone:[phone] [facility] Address: No addresses found on file for location Phone: No phone numbers found on file for location SAMANTHA DERAS DOB: [birth year] Visit Diagnosis (Note: All diagnoses documented [...] state, incidental (ICD-10-CM: Z33.1, Date: 12/26/21) SAMANTHA DERAS: [birth year] Delivery Summary Baby A Membrane Status [...] Maternal Delivery Complications: None Attending Physician: Dipika Lopez MD, FACOG Information Risk Factors: None Complications: None Umbilical Cord Description: 3 vessel cord Data Gender: Male ID Band Number: [id number] Outcome: Live Security Tag Number: [id number] Weight: 3.260 kg Score 1 Minute: 9 Score 5 Minute: 9 Multimedia Journalist: Abi Cespedes APRN Note: Items documented with '--' had no clinical data which qualified at time of report creation END OF REPORT Patient Care team information Care Team Personnel Name: DONNA JORDAN APRN Position: No Access Member Role: Primary Care Physician Address: [address] [place] [id number] [place] [address] Care Team Related Persons Name: BONITA WANG Name: CHAVEZ WANG Name: CHAVEZ WANG Insurance Providers Guarantor name: SAMANTHA T BRAEDEN [facility] Information #: 1 Payer: BC BS Member Number: [id number] Policy Number: NA Health Plan Information #: 2 Payer: BS Member Number: [id number] Policy Number: NA
--- OUTSIDE RECORDS SUMMARY | 2024-03-28 20:15 | XMS_ITS | Continuity of Care Document ---
Author Organization [facility] Ambulatory Clinics Address [address] [place] [address] Encounter [facility] NBR [id number] Date(s): 02/01/22 - 02/01/22 [facility] Ambulatory Clinics [address], [place] [address] Encounter Diagnosis exam(Discharge Diagnosis) - 02/01/22 Oral contraception status(Discharge Diagnosis) - 02/01/22 Discharge Disposition: Home or Self Care Attending Physician: Dipika Lopez MD, FACOG Allergies, Adverse Reactions, Alerts Substance Reaction Severity Status prednisoLONE 1 Moderate Active Celery Severe Active 1topical-mouth irritation Assessment and Plan Future Appointments Functional Status 02/01/22 Recent Travel History No recent travel Other exposure to Infectious Disease Non e Medications norethindrone 0.35 mg oral tablet 0.35 mg = 1 tab, Oral, Daily, # 84 tab, 3 Refill(s), Pharmacy: [facility] #[facility], 154.94, cm, 01/19/22 5:08:00 EDT, Height/Length Dosing, 73, kg, 01/19/22 5:08:00 EDT, Weight Dosing Start Date: 02/01/22 Status: Ordered 19 ([place]) See Instructions, 0 Refill(s) Start Date: 12/26/21 Status: Ordered Problem List Condition Confirmation Course Effective Dates Status H ealth Status Informant Obsessional thoughts Confirmed Active Oral contraception status Confirmed Active Vital Signs Most recent to oldest [Reference Range]: 1 Blood Pressure [90-140/60-90 mmHg] 104/7 6mmHg (02/01/22 4:31 PM) Weight 64.1 kg (02/01/22 4:31 PM) Weight Measured (lbs) 141.316 lb (02/01/22 4:31 PM) [place] Body Weight Calculated 57 kg (02/01/22 4:31 PM) Height 165.10 cm (02/01/22 4:31 PM) Height/Length Measured (inches) 65 inch (02/01/22 4:31 PM) BSA Measured 1.71 m2 (02/01/22 4:31 PM) Body Mass Index 23.52 kg/m2 (02/01/22 4:31 PM) Social History Social History Type Response Tobacco Never tobacco user T obacco Use:. Sex Female Hospital Discharge Instructions Follow Up Care 01/30/2022 08:50:22 With:Dipika Lopez MD, FACOG Address: [address] [place] [id number] When:Within 4 Week(s) summary Document * Event Display: Summary Document Authored Date: [id number] SAMANTHA DERAS : 1990 Age: 31 Years [...] 88 Problems (Active Problems Only) (SNOMED CT: [id number], Onset: 04/10/21) SAMANTHA DERAS DOB: [birth year] Risk Factors and Genetic Screening All Results Documented Since 04/10/2021 Risk Factors (Current ) No risk factors have been recorded for this . Ethnic Screening No ethnicities have been recorded. Genetic Disorders Screening No genetic disorders have been recorded. SAMANTHA DERAS: [birth year] Gestational Age (EGA) and SISI * Note: EGA calculated as of 02/01/2022 SISI: 01/15/2022 EGA*: 40 weeks 4 days Type: Authoritative Method Date: 04/10/2021 Method: Last Menstrual Period (04/10/2021) Confirmation: Confirmed Description: Date Definite Comments: -- Entered by: Juan Gandhi MD on 12/25/2021 Other SISI Calculations for this : No additional SISI calculations have been recorded for this SAMANTHA DERAS: [birth year] Measurements Pre- Weight: 56.699 kg 01/16/22 [...] 01/02/22 38w1d -- -- -- -- -- 98/ *157... Negative Negative -- -- -- 12/27/21 37w2d 37 -- 0 50% -3 -- -- -- -- Baby A = 150 *Present pe... Vertex 12/26/21 37w1d -- -- -- -- -- 106/ *156... -- -- -- -- -- Next [...] General: Intact (01/20/22) Mucous Membrane Color: [place] (01/20/22) Mucous Membrane Description: Moist (01/20/22) SAMANTHA DERAS DOB: [birth year] Blood Types and Anti-D Immune Globulin Blood Type and Screen Mother ABO/Rh: -- Mother Antibody Screen: -- Father of Baby ABO/Rh: -- Father of Baby Antibody Screen: -- Anti-D Immune Globulin Rho(D) Initial Status: -- Rho(D) 28 Week Status: -- Rho(D) Dates Given: -- SAMANTHA DERAS DOB: [birth year] Tests and Lab Results Results ending [...] K/mcL 01/19/22 (40 weeks) (1.4 - 6.5) [place] Absolute (H) 1.1 K/mcL 01/19/22 (40 weeks) (0.1 - 0.6) Lymph Absolute 2.0 K/mcL 01/19/22 (40 weeks) (1.2 - 3.4) Baso Absolute 0.0 K/mcL 01/19/22 (40 weeks) (0.0 - 0.2) Basophil Auto (H) 0.3 % 01/19/22 (40 weeks) (0.0 - 0.2) [place] Auto (H) 10.8 % 01/19/22 (40 weeks) [...] Refill(s) Ordered: 01/20/22 Provider: Dipika Lopez MD, MARCOS benzocaine-menthol 20%-0.5% topical spray (Historically recorded) SI tari, Topical, As Directed, PRN: other (see comment), 0 Refill(s) Ordered: 01/20/22 Provider: Dipika Lopez MD, MARCOS docusate-senna 50 mg-8.6 mg oral tablet (Historically recorded) SI tab, Oral, BID, PRN: constipation, 0 Refill(s) Ordered: 01/20/22 Provider: Dipika Lopez MD, MARCOS ferrous sulfate 325 mg (65 mg elemental [...] 01/20/22 Provider: Dipika Lopez MD, FACOG 19 ([place]) (Historically recorded) SIG: See Instructions, 0 Refill(s) Ordered: 12/26/21 Provider: -- witreinaldo chepe 50% rectal pad (Historically recorded) SI [...] Ordered: 01/19/22 Provider: Dipika Lopez MD, FACOG acetaminophen 650 mg = 2 tab, N/A, Once Status: Completed Ordered: 01/19/22 Provider: WillieUser, Generated ibuprofen 600 mg = 1 tab, N/A, Once Status: Completed Ordered: 01/19/22 Provider: WillieUser, Generated lidocaine 1% (lidocaine) 20 mL, N/A, Once Status: Completed Ordered: 01/19/22 Provider: WillieUser, Generated mineral oil 100% (mineral oil) 30 mL, N/A, Once Status: Completed Ordered: 01/19/22 Provider: WillieUser, Generated oxytocin 10 units = 1 mL, N/A, Once Status: Completed Ordered: 01/19/22 Provider: Alexis Victoria acetaminophen (Acetaminophen 325 mg Tab [LTTL]) 650 mg = 2 tab, Oral, every 4 hr, PRN: pain Status: Discontinued Ordered: 01/19/22 Provider: Dipika Lopez MD, MARCOS benzocaine-menthol 20%-0.5% topical spray (Benzocaine-Menthol Topical [place] [LTTL]) 1 tari, Topical, As Directed, PRN: other (see comment) Status: Discontinued Ordered: 01/19/22 Provider: Dipika Lopez MD, MARCOS benzocaine-menthol 20%-0.5% topical spray (Benzocaine-Menthol Topical [place] [LTTL]) 1 tari, Topical, As Directed, PRN: [...] Discontinued Ordered: 01/19/22 Provider: Dipika Lopez MD, MARCOS docusate-senna 50 mg-8.6 mg oral [...] administered or recorded as given SAMANTHA DERAS DOB: [birth year] Menstrual History Last Recorded Menstrual Period: [...] Sex: Male Wt: 3289 g Hospital: [facility] Comment: Nitrous GBS positive SAMANTHA [...] Blood Transfusion Acceptable to Patient: -- SAMANTHA DERAS: [birth year] Plan and Patient Requests Desired Delivery Location: -- Education: -- Written Plan: -- Written Plan Location: -- Support Person/Pet Handler Relationship to Pt: -- Oral Intake OB: -- Labor Preferences: -- Non-Medicinal Pain Relief: -- Anesthesia/Pain Medication During Labor: Epidural, IV narcotic Delivery Plan: -- Feeding: -- Circumcision: -- Baby For Adoption: -- Patient Requests: -- Father of the Baby's Name: -- Body Finisher Selected: -- Surrogate : -- Support Person's Name: -- SAMANTHA DERAS: [birth year] Education Educational Materials/Leaflets Provided Title/Topic Date Provided [place] Post Discharge Instructions 01/20/22 SAMANTHA DERAS : [birth year] Registration and Information Race: White Ethnicity: Not , , or Albanian Origin Marital Status: Language(s): Citizen Of [place] Orthodox Preference(s): Latter Day Occupation/Education: See social history above if documented. Address, Phone, and Health Plans Home Address: [address] [place] [phone] Phone: --, , -- Health Plans: 1 - [facility] Member/Group: [id number] Deductible: $ -- Type: [facility] Address: [address] [phone] General Information OB Provider(s) Information: Not explicitly recorded. May be noted in encounter section below. See below for detailed information for all visits and information. Delivery Center/Hospital Information: -- [place] Provider Information: -- Referring Provider Information: Dipika [...] Medical Service 02/01/2022 4 Dipika Lopez MD, [facility] Clinic Clinic 01/19/2022 A Dipika Lopez MD, [facility] Inpatient Inpatient 01/16/2022 [facility] Dipika Lopez MD, [facility] Clinic Clinic 01/09/2022 1 Juan Gandhi MD Clinic Clinic 01/02/2022 3 Juan Gandhi MD Client Clinic 12/26/2021 [facility] Juan Gandhi MD Nonpatient Lab 12/26/2021 1 Juan Gandhi MD Clinic Clinic 11/25/2021 [facility] [id number] -[place], DIPIKA History Obstetrics 10/31/2021 [facility] [id number] -[place], DIPIKA History Radiology 10/31/2021 [facility] Jovan Delgado History Multiple Outpatient 09/09/2021 [facility] Jovan Delgado History Laboratory 09/09/2021 [facility] Juan Gandhi MD History Radiology 06/20/2021 [facility] [id number] -[place] Laboratory SAMANTHA DERAS DOB: [birth year] Visit / Encounter Location Information The following information represents known location and contact information for locations visitedduring [facility] Ambulatory Clinics Business Address: [address] [place] [address] Phone:[phone] ([facility] Address: No addresses found on file for [...] Infant Data Gender: Male ID Band Number: [id number] Outcome: Live Security Tag Number: [id number] Weight: 3.260 kg Score 1 Minute: 9 Score 5 Minute: 9 Body Finisher: Abi Cespedes APRN Note: Items documented with '--' had no clinical data which qualified at time of report creation END OF REPORT Physician Outpatient Note * Dipika Lopez MD, FACOG: PERFORM Event Display: Office Clinic Note Physician Authored Date: [id number] SAMANTHA DERAS :1990 Age:31 years Sex:Female Visit Date:02/01/2022 Chief Complaint 01/19/2022. Some PP depression, good home support. going well but breast tendermess, aches yesterday. Feels better today. No fever. History of Present Illness Breast feeding going well and baby sleeps 3-4 hours at times.?? Had episode of mastitis yesterday but properly addressed it by using heat on area before next feeding.?? (Can also use cold after feeding.) Some PP blues and may seek some counseling.?? Bleeding still but not too much.?? Has rx but hasn't started norethindrone yet. Physical Exam Vitals & Measurements BP:??104/76?? HT:??165.10??cm?? WT:??64.1??kg?? BMI:??23.52?? BSA:??1.71?? Appears rested and addressing baby's needs. Nailbeds pink.?? [place] 8. Assessment/Plan 1.?? exam??Z39.2 Doing well.?? F/U 4 more weeks. Ordered: norethindrone 0.35 mg oral tablet, 0.35 mg = 1 tab, Oral, Daily, # 84 tab, 3 Refill(s), Pharmacy: [facility] #93, 154.94, cm, 01/19/22 5:08:00 EDT, Height/Length Dosing, 73, kg, 01/19/22 5:08:00 EDT, Weight Dosing ?? 2.??Oral contraception status??Z30.011 Start norethindrone Ordered: norethindrone 0.35 mg oral tablet, 0.35 mg = 1 tab, Oral, Daily, # 84 tab, 3 Refill(s), Pharmacy: [facility] #93, 154.94, cm, 01/19/22 5:08:00 EDT, Height/Length Dosing, 73, kg, 01/19/22 5:08:00 EDT, Weight Dosing ?? Follow Up Instructions With When Contact Information Dipika Lopez MD, FACOG In [address] [place] [phone] Additional Instructions: Problem List/Past Medical History Ongoing Obsessional thoughts Oral contraception status Historical Medications norethindrone 0.35 mg oral tablet, 0.35 mg= 1 tab, Oral, Daily, 3 refills 19 ([place]), See Instructions Allergies Celery prednisoLONE Social History Electronic Cigarette/Vaping Electronic Cigarette Use: Never. Employment/School Employed, Work/School description: [employer]. Home/Environment Lives with Children, Spouse. Living situation: Home/Independent. Tobacco Never tobacco user Tobacco Use:. Electronically Signed on 02/01/22 07:29 PM Dipika Lopez MD, FACOG Patient Care team information Care Team Related Persons Name: BONITA WANG Address: [address], [place] [phone] [facility] Name: CHAVEZ WANG Address: Home [address] [place], [place] [id number] [facility]
--- OUTSIDE RECORDS SUMMARY | 2024-03-28 20:15 | XMS_ITS | Encounter Summary ---
Author Organization [facility] Address [address] [place] [address] Care Team Providers Care Natural Gas Shothole Driller Name Role Phone Unavailable Primary Care Provider Unavailabl e Encounter Details Date Type Department Care Team (Late st Contact Info) Description 01/27/2021 Lab Requisition [facility] Pathology & Laboratory Medicine - [facility] [address] [place], [place] [id number] Outr Resulting Lab, Provider Social History Tobacco [...] Comments ZZCOVID-19 TEST UVC LAB PCR Today 01/26/2021 17:10 EDT COVID-19 TESTING Routine 01/26/2021 17:1 0 EDT documented in this encounter Results * COVID-19 TEST [facility] LAB PCR (01/26/2021 17:10 EDT) Swab ENTIRE NASOPHARYNX / Unknown 01/26/2021 17:10 EDT 01/27/2021 16:27 EDT us Provider Outr Resulting Lab MICROBIOLOGY - GENER AL ORDERABLES Final Result [facility] [address] [place] [address] * COVID-19 TESTING (01/26/2021 17:10 EDT) COVID-19 rt-PCR Result Negative Negative 01/27/2021 19:48 EDT [facility] Comment: This test [...] history, and epidemiological information. Performed on the [employer] Fusion instrument Performing Lab [place] [facility] Lab 01/27/2021 19:48 EDT [facility] Swab 01/26/2021 17:1 0 EDT 01/27/2021 16:27 EDT us Provider Outr Resulting Lab MICROBIOLOGY - GENER AL ORDERABLES Final Result [facility] [address] [place] [address] documented in this encounter Visit Diagnoses Not on filedocumented in this encounter
--- OUTSIDE RECORDS SUMMARY | 2024-03-28 20:15 | XMS_ITS | Continuity of Care Document ---
Author Organization [facility] Ambulatory Clinics Address [address] [place] [address] Care Team Providers Care Green Belt Name Role Phone DONNA JORDAN APRN Primary Care Physician Encounter [facility] NBR [id number] Date(s): 01/17/24 - 01/17/24 [facility] Ambulatory Clinics [address] [place] [address]- [place] Encounter Diagnosis Encounter for IUD insertion(Discharge Diagnosis) - 01/17/24 Discharge Disposition: Home or Self Care Attending Physician: Rashad Claudio MD Allergies, Adverse Reactions, Alerts Substance Criticality Severity Reaction Reaction Severity Status prednisoLONE 1 High criticality Moderate Oral blisters Active Celery High criticality Severe Act desire 1topical-mouth irritation Assessment and Plan Future Appointments Medications norethindrone 0.35 mg oral tablet 0.35 mg = 1 tab, Oral, Daily, # 84 tab, 3 Refill(s), Pharmacy: [facility], 154.94, cm, 01/19/22 5:08:00 EDT, Height/Length Dosing, 73, kg, 01/19/22 5:08:00 EDT, Weight Dosing Start Date: 02/01/22 Status: Ordered 19 ([place]) See Instructions, 0 Refill(s) Start Date: 12/26/21 Status: Ordered Valium 5 mg oral tablet See Instructions, 1 tab Orally times one 30 min prior to procedure. May repeat x 1 if needed., # 2 tab, 0 Refill(s), Pharmacy: [facility], 165.1, cm, 03/09/22 15:08:00 EST, Height, [...] [Reference Range]: 1 Blood Pressure [90-120/60-80 mmHg] 104/6 2mmHg (01/17/24 3:00 PM) Mean Arterial Pressure, Cuff [65-140 mmH g] 76 mmHg (01/17/24 3:00 PM) Weight 59.0 kg (01/17/24 3:00 PM) Weight Measured (lbs) 130.073 lb (01/17/24 3:00 PM) Weight Dosing 59.000 kg (01/17/24 3:00 PM) Social History Social History Type Response Smoking Status Smoking tobacco use: Never tobacco user;Never entered on: 01/03/24 Sex Female Sex Representation Female (finding) summary Document * Event Display: Summary Document Authored Date: [id number] SAMANTHA DERAS : 1990 Age: 31 Years SAMANTHA DERAS : [birth year] Summary (Date of Report: 02/01/22) G 2 P 1 (1,0,0,1) Gestation: M[place] LMP (from pt. history): -- SISI: 01/15/2022 SISI/EGA Method: Last Menstrual Period EGA: Delivered Gestation info at delivery: Baby A : 40 weeks 4 days SAMANTHA DERAS : [birth year] Antepartum Note Date: 01/09/22 14:55 (39 weeks) By: Juan Gandhi MD Some s, baby is low Date: 12/27/21 07:40 (37 weeks) By: Juan Gandhi MD Late entry: GBS done. Vtx but high. SAMANTHA DERAS : [birth year] Problems (Active Problems Only) (SNOMED CT: [id number], Onset: 04/10/21) SAMANTHA DERAS: [birth year] Risk Factors [...] Integrity General: Intact (01/20/22) Mucous Membrane Color: [place] (01/20/22) Mucous Membrane Description: Moist (01/20/22) SAMANTHA [...] K/mcL 01/19/22 (40 weeks) (1.4 - 6.5) [place] Absolute (H) 1.1 K/mcL 01/19/22 (40 weeks) (0.1 - 0.6) Lymph Absolute 2.0 K/mcL 01/19/22 (40 weeks) (1.2 - 3.4) Baso Absolute 0.0 K/mcL 01/19/22 (40 weeks) (0.0 - 0.2) Basophil Auto (H) 0.3 % 01/19/22 (40 weeks) (0.0 - 0.2) [place] Auto (H) 10.8 % 01/19/22 (40 weeks) [...] Actions No Actions have been documented. SAMANTHA DERAS : [birth year] Situational Awareness No comments have been [...] 01/20/22 Provider: Dipika Chung MD, FACOG 19 ([place]) (Historically recorded) SIG: See Instructions, 0 Refill(s) [...] Status: Completed Ordered: 01/19/22 Provider: Alexis Victoria ibuprofen 600 mg = 1 tab, N/A, [...] [facility] benzocaine-menthol 20%-0.5% topical spray (Benzocaine-Menthol Topical [place] [LTTL]) 1 tari, Topical, As Directed, PRN: other (see comment) Status: Discontinued Ordered: 01/19/22 Provider: Dipika Chung MD, [facility] benzocaine-menthol 20%-0.5% topical spray (Benzocaine-Menthol Topical [place] [LTTL]) 1 tari, Topical, As Directed, PRN: [...] PRN: dyspepsia Status: Discontinued Ordered: 01/19/22 Provider: Dipkia Chung MD, [facility] calcium (as carbonate) 500 [...] Ordered: 01/19/22 Provider: Dipika Chung MD, MARCOS witch chepe 50% rectal pad ([place] 50% Top Pad [LTTL]) 1 tari, Topical, As Directed, PRN: other (see comment) Status: Discontinued Ordered: 01/19/22 Provider: Dipika Chung MD, MARCOS witreinaldo chepe 50% rectal pad ([place]itch [place] 50% Top Pad [LTTL]) 1 tari, Topical, As Directed, PRN: other (see comment) Status: Discontinued Ordered: 01/19/22 Provider: Dipika Chung MD, FACOG SAMANTHA DERAS DOB: [birth year] Immunizations No immunizations have been administered [...] Plan: -- Written Plan Location: -- Support Person/Netbackup Administrator Relationship to Pt: -- Oral Intake OB: -- Labor Preferences: -- Non-Medicinal Pain Relief: -- Anesthesia/Pain Medication During Labor: Epidural, IV narcotic Delivery Plan: -- Infant Feeding: -- Circumcision: -- Baby For Adoption: -- Patient Requests: -- Father of the Baby's Name: -- Dietetic Aide Selected: -- Surrogate : -- Support Person's Name: -- SAMANTHA DERAS : [birth year] Education Educational Materials/Leaflets Provided Title/Topic Date Provided [facility] Post Discharge Instructions 01/20/22 SAMANTHA DERAS DOB: [birth year] Registration and Information Race: White Ethnicity: Not , , or Palauan Origin Marital Status: Language(s): Puerto Rican Scientologist Preference(s): Mandaeism Occupation/Education: See social history above if documented. Address, Phone, and Health Plans Home Address: [address] [place] [phone] Phone: --, , -- Health Plans: 1 - [facility] Member/Group: [id number] Deductible: $ -- Type: [facility] Address: [address] [phone] General Information OB Provider(s) Information: Not explicitly [...] Medical Service 02/01/2022 4 Dipika Chung MD, [facility] Clinic Clinic 01/19/2022 A Dipika Chung MD, [facility] Inpatient Inpatient 01/16/2022 [facility] Dipika Chung MD, [facility] Clinic Clinic 01/09/2022 1 Juan Gandhi MD Clinic Clinic 01/02/2022 3 Juan Gandhi MD Client Clinic 12/26/2021 [facility] Juan Gandhi MD Nonpatient Lab 12/26/2021 1 Juan Gandhi MD Clinic Clinic 11/25/2021 [facility] [id number] -DIPIKA CHUNG History Obstetrics 10/31/2021 [facility] [id number] -DIPIKA CHUNG History Radiology 10/31/2021 [facility] Jovan Delgado History Multiple Outpatient 09/09/2021 [facility]Yng History Laboratory 09/09/2021 [facility] Juan Gandhi MD History Radiology 06/20/2021 [facility] [id number] -DIPIKA CHUNG Laboratory SAMANTHA DERAS DOB: [birth year] Visit / Encounter Location Information The following information represents known location and contact information for locations visitedduring [facility] Ambulatory Clinics Business Address: [address] [place] [address] Phone:[phone] [facility] Address: No addresses found on file for [...] cord Data Gender: Male ID Band Number: [id number] Outcome: Live Security Tag Number: [id number] Weight: 3.260 kg Score 1 Minute: 9 Score 5 Minute: 9 Dietetic Aide: Abi Cespedes APRN Note: Items documented with '--' had no clinical data which qualified at time of report creation END OF REPORT Note * Rita Manzo: PERFORM Event Display: Pathology Narrative Note Authored Date: Patient Care team information Care Team Personnel Name: DONNA JORDAN APRN Position: No Access Member Role: Primary Care Physician Address: [address] [place] [address] Care Team Related Persons Name: BONITA WANG Name: CHAVEZ WANG Name: CHAVEZ WANG Insurance Providers Guarantor name: SAMANTHA DERAS Health Plan Information #: 1 Payer: [facility] Member Number: [id number] Policy Number: NA Health Plan Information #: 2 Payer: [facility] Member Number: [id number] Policy Number: NA
--- OUTSIDE RECORDS SUMMARY | 2024-03-28 20:15 | XMS_ITS | Continuity of Care Document ---
Author Organization [facility] Amb[facility] Address [address] [place] [address] Care Team Providers Care Director Digital Advertising Name Role Phone DIPIKA ZAZUETA Primary Care Physician Encounter [facility] FIN NBR [id number] Date(s): 03/09/22 - 03/09/22 [facility] [address] [place] [address]- Encounter Diagnosis exam(Discharge Diagnosis) - 03/09/22 Separation of abdominal muscles(Discharge Diagnosis) - 03/09/22 Discharge Disposition: Home or Self Care Attending Physician: Dipika Chung MD, FACOG Allergies, Adverse Reactions, Alerts Substance Reaction Severity Status prednisoLONE 1 Moderate Active Celery Severe Active 1topical-mouth irritation Functional Status 03/09/22 Recent Travel History No recent travel Other exposure to Infectious Disease Non e Medications norethindrone 0.35 mg oral tablet 0.35 mg = 1 tab, Oral, Daily, # 84 tab, 3 Refill(s), Pharmacy: [facility], 154.94, cm, 01/19/22 5:08:00 EDT, Height/Length Dosing, 73, kg, 01/19/22 5:08:00 EDT, Weight Dosing Start Date: 02/01/22 Status: Ordered 19 ([place]) See Instructions, 0 Refill(s) Start Date: 12/26/21 Status: Ordered Problem List Condition Confirmation Course Effective Dates Status H ealth Status Informant Obsessional thoughts Confirmed Active Oral contraception status Confirmed Active Procedures Procedure Date Related Diagnosis Body Site Status Knee 1 Completed Wrist Completed 1in high school Vital Signs Most recent to oldest [Reference Range]: 1 Blood Pressure [90-140/60-90 mmHg] 100/6 4mmHg (03/09/22 3:08 PM) Weight 64.6 kg (03/09/22 3:08 PM) Weight Measured (lbs) 142.418 lb (03/09/22 3:08 PM) [place] Body Weight Calculated 57 kg (03/09/22 3:08 PM) Height 165.10 cm (03/09/22 3:08 PM) Height/Length Measured (inches) 65 inch (03/09/22 3:08 PM) BSA Measured 1.72 m2 (03/09/22 3:08 PM) Body Mass Index 23.7 kg/m2 (03/09/22 3:08 PM) Social History Social History Type Response Tobacco Never tobacco user T obacco Use:. Sex Female summary Document * Event Display: Summary Document Authored Date: [id number] SAMANTHA DERAS : 1990 Age: 31 Years [...] DERAS DOB: [birth year] Problems (Active Problems Only) ([facility] CT: [id number], Onset: 04/10/21) SAMANTHA DERAS DOB: [birth year] Risk [...] have been recorded for this SAMANTHA DERAS DOB: [birth year] Measurements Pre- Weight: 56.699 kg 01/16/22 [...] Integrity General: Intact (01/20/22) Mucous Membrane Color: [place] (01/20/22) Mucous Membrane Description: Moist (01/20/22) SAMANTHA DERAS: [birth year] Blood Types and Anti-D Immune Globulin [...] K/mcL 01/19/22 (40 weeks) (1.4 - 6.5) [place] Absolute (H) 1.1 K/mcL 01/19/22 (40 weeks) (0.1 - 0.6) Lymph Absolute 2.0 K/mcL 01/19/22 (40 weeks) (1.2 - 3.4) Baso Absolute 0.0 K/mcL 01/19/22 (40 weeks) (0.0 - 0.2) Basophil Auto (H) 0.3 % 01/19/22 (40 weeks) (0.0 - 0.2) Marin Auto (H) 10.8 % 01/19/22 (40 weeks) [...] Ordered: 01/20/22 Provider: Dipika Chung MD, MARCOS ferrous sulfate 325 mg (65 [...] 01/20/22 Provider: Dipika Chung MD, FACOG 19 ([place]) (Historically recorded) SIG: See Instructions, 0 Refill(s) [...] MARCOS benzocaine-menthol 20%-0.5% topical spray (Benzocaine-Menthol Topical [place] [LTTL]) 1 tari, Topical, As Directed, PRN: other (see comment) Status: Discontinued Ordered: 01/19/22 Provider: Dipika Chung MD, MARCOS benzocaine-menthol 20%-0.5% topical spray (Benzocaine-Menthol Topical [place] [LTTL]) 1 tari, Topical, As Directed, PRN: [...] Ordered: 01/19/22 Provider: Dipika Chung MD, FACOG witreinaldo chepe 50% rectal pad [...] Live Sex: Male Wt: 3289 g Hospital: [facility] Comment: Nitrous GBS positive SAMANTHA [...] Transfusion Acceptable to Patient: -- SAMANTHA DERAS DOB: [birth year] Plan and Patient Requests Desired Delivery Location: -- Education: -- Written Plan: -- Written Plan Location: -- Support Person/Meteorological Equipment Repairer Relationship to Pt: -- Oral Intake OB: -- Labor Preferences: -- Non-Medicinal Pain Relief: -- Anesthesia/Pain Medication During Labor: Epidural, IV narcotic Delivery Plan: -- Infant Feeding: -- Circumcision: -- Baby For Adoption: -- Patient Requests: -- Father of the Baby's Name: -- Traffic Control Signaler Selected: -- Surrogate : -- Support Person's Name: -- SAMANTHA DERAS DOB: [birth year] Education Educational Materials/Leaflets Provided Title/Topic Date Provided [facility] Post Discharge Instructions 01/20/22 SAMANTHA DERAS : [birth year] Registration and Information Race: White Ethnicity: Not , , or Belgian Origin Marital Status: Language(s): Tajik Roman Catholic Preference(s): Congregation Occupation/Education: See social history above if documented. Address, Phone, and Health Plans Home Address: [facility] [place], [place] [id number] Phone: --, , -- Health Plans: 1 - [facility] Member/Group: [id number] Deductible: $ -- Type: [employer] Address: [address] [phone] General Information OB Provider(s) Information: Not explicitly [...] Medical Service 02/01/2022 4 Dipika Chung MD, [facility] 01/19/2022 A Dipika Chung MD, [facility] [place] Inpatient 01/16/2022 [facility] 01/09/2022 1 Juan Gandhi MD Clinic Clinic 01/02/2022 3 Juan Gandhi MD Client Clinic 12/26/2021 [facility] Juan Gandhi MD Nonpatient Lab 12/26/2021 1 Juan Gandhi MD Clinic Clinic 11/25/2021 [facility] [id number] -DIPIKA CHUNG History Obstetrics 10/31/2021 [facility] [id number] -DIPIKA CHUNG History Radiology 10/31/2021 [facility] Jovan Delgado History Multiple Outpatient 09/09/2021 [facility] Jovan Delgado History Laboratory 09/09/2021 [facility] Juan Gandhi MD History Radiology 06/20/2021 [facility] [id number] -DIPIKA CHUNG Laboratory SAMANTHA DERAS : [birth year] Visit / Encounter Location Information The following information represents known location and contact information for locations visitedduring [facility] Business Address: [address] [place] [address] Phone:[phone] [facility] Address: No addresses found on file for location Phone: No phone numbers found on file for location SAMANTHA DERAS: [birth year] Visit Diagnosis (Note: All diagnoses documented [...] Infant Data Gender: Male ID Band Number: [id number] Outcome: Live Security Tag Number: [id number] Weight: 3.260 kg Score 1 Minute: 9 Score 5 Minute: 9 Traffic Control Signaler: Abi Cespedes APRN Note: Items documented with '--' had no clinical data which qualified at time of report creation END OF REPORT Physician Outpatient Note * Dipika Chung MD, FACOG: PERFORM Event Display: Office Clinic Note Physician Authored Date: [id number] SAMANTHA DERAS :1990 Age:31 years Sex:Female Visit Date:03/09/2022 Primary Care Physician: DIPIKA ZAZUETA Chief Complaint Delivered 01/19/2022-. going well. Things are going well, good home support. No bowel or urinary concerns. Has minipill has home, has not started yet but probably will. looking into vasectomy. History of Present Illness Breast feeding going well.?? Less depression this time.?? Bleeding almost stopped.?? Had minipill but not started and plans to have have a vasectomy Physical Exam Vitals & Measurements BP:??100/64?? HT:??165.10??cm?? WT:??64.6??kg?? BMI:??23.7?? BSA:??1.72?? Masked.?? Chest clear to P&A.?? Heart without murmur.?? Breasts lactating.?? Abdomen with decreased tone, no hernia, no masses, no tenderness.?? BS active.?? Vulva slight gaping with atrophic changes and slight asymmetry.?? Cystocele and rectocele minimal. Cervix high. Parous and nontender. Uterus symmetrical, mobile and nontender. Adnexa with no palpable masses.?? Extremities benign. [place] PP depression score 6. Assessment/Plan 1.?? exam??Z39.2 Doing well.?? No pap needed this year.?? Will continue to breast feed and call if problems.?? Wouldlike referral for samaritan of abdominal muscles and pelvic floor muscles. Minipill until vas okayed. 2.??Separation of abdominal muscles??M62.08 Problem List/Past Medical History Ongoing Obsessional thoughts Oral contraception status Historical Procedure/Surgical History ???Knee???Wrist Medications norethindrone 0.35 mg oral tablet, 0.35 mg= 1 tab, Oral, Daily, 3 refills 19 ([place]), See Instructions Allergies Celery prednisoLONE Social History Electronic Cigarette/Vaping Electronic Cigarette Use: Never. 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 Home/Environment Lives with Children, Spouse. Living situation: Home/Independent. Sexual Sexually active: Yes. Tobacco Never tobacco user Tobacco Use:. Electronically Signed on 03/09/22 04:16 PM Dipika Chung MD, FACOG Patient Care team information Personnel Name: DIPIKA ZAZUETA Address: Address: [address] [place] [address]
--- OUTSIDE RECORDS SUMMARY | 2024-03-28 20:15 | XMS_ITS | Continuity of Care Document ---
Author Organization [facility] Ambulatory Clinics Address [address] [place] [address] Encounter [facility] FIN NBR [id number] Date(s): 01/02/22 - 01/02/22 [facility] Ambulatory Clinics [address] [place], [place] [address] Encounter Diagnosis (Discharge Diagnosis) - 01/02/22 Discharge Disposition: Home or Self Care Attending Physician: Juan Gandhi Allergies, Adverse Reactions, Alerts Substance Reaction Severity Status prednisoLONE 1 Moderate Active 1topical-mouth irritation Medications 19 ([place]) See Instructions, 0 Refill(s) Start Date: 12/26/21 Status: Ordered Problem List Condition Confirmation Course Effective Dates Status Health St atus Informant Confirmed 04/10/21 Active Results Most recent to oldest [Reference Range]: 1 Protein Urine Dipstick Negative (01/02/22 2:36 PM) Glucose Urine Dipstick Negative (01/02/22 2:36 PM) Vital Signs Most recent to oldest [Reference Range]: 1 Blood Pressure [90-140/60-90 mmHg] 98/62 mmHg (01/02/22 2:36 PM) Weight 71.3 kg (01/02/22 2:36 PM) Pre- Weight 56.699 kg (01/02/22 2:36 PM) Cumulative Weight Gain 15 kg (01/02/22 2:36 PM) Height 154.94 cm (01/02/22 2:36 PM) Body Mass Index 29.7 kg/m2 (01/02/22 2:36 PM) Social History Social History Type Response Sex Female
--- OUTSIDE RECORDS SUMMARY | 2024-03-28 20:15 | XMS_ITS | Continuity of Care Document ---
Author Organization [facility] Address [address] [place] [address] Encounter [facility] NBR [id number] Date(s): 01/19/22 - 01/19/[address] [address] Encounter Diagnosis (Discharge Diagnosis) - 01/19/22 exam(Discharge Diagnosis) - 01/19/22 Discharge Disposition: Home or Self Care Attending Physician: Carlos Lopez MD, FACOG Admitting Physician: Carlos Lopez MD, FACOG Referring Physician: Carlos Lopez MD, FACOG Allergies, Adverse Reactions, Alerts Substance Reaction Severity Status prednisoLONE 1 Moderate Active Celery Severe Active 1topical-mouth irritation Functional Status 01/19/22 Recent Travel History No recent travel Other exposure to Infectious Disease Non e Medications 19 ([place]) See Instructions, 0 Refill(s) Start Date: 12/26/21 Status: Ordered Problem List Condition Confirmation Course Effective Dates Status Health St atus Informant Confirmed 04/10/21 Active Results Laboratory List Name Date Automated Diff 01/19/22 CBC w/ Diff 01/19/22 Most recent to oldest [Reference Range]: 1 WBC [4.8-10.8 K/mcL] 10.0 K/mcL (01/19/22 3:25 AM) RBC [4.20-6.10 Million/mcL] 3.88 Million /mcL *LOW* (01/19/22 3:25 AM) Neutro Auto [42.2-75.2 %] 67.8 % (01/19/22 3:25 AM) Lymph Auto [20.5-51.1 %] 20.3 % *LOW* (01/19/22 3:25 AM) [place] Auto [1.7-9.3 %] 10.8 % *HI* (01/19/22 3:25 AM) Basophil Auto [0.0-0.2 %] 0.3 % *HI* (01/19/22 3:25 AM) Baso Absolute [0.0-0.2 K/mcL] 0.0 K/mcL (01/19/22 3:25 AM) MCV [80.0-99.0 fL] 93.0 fL (01/19/22 3:25 AM) MCHC [32.0-36.0 g/dL] 34.6 g/dL (01/19/22 3:25 AM) Lymph Absolute [1.2-3.4 K/mcL] 2.0 K/mcL (01/19/22 3:25 AM) Hct [37.0-52.0 %] 36.1 % *LOW* (01/19/22 3:25 AM) [place] Absolute [0.1-0.6 K/mcL] 1.1 K/mcL *HI* (01/19/22 3:25 AM) MCH [27.0-31.0 pg] 32.2 pg *HI* (01/19/22 3:25 AM) Neutro Absolute [1.4-6.5 K/mcL] 6.8 K/mc L *HI* (01/19/22 3:25 AM) Hgb [12.0-18.0 g/dL] 12.5 g/dL (01/19/22 3:25 AM) MPV [7.4-10.4 fL] 10.2 fL (01/19/22 3:25 AM) Platelets [130-400 K/mcL] 198 K/mcL (01/19/22 3:25 AM) Eos Absolute [0.0-0.2 K/mcL] 0.0 K/mcL (01/19/22 3:25 AM) RDW-CV [11.5-14.5 %] 12.2 % (01/19/22 3:25 AM) Imm Gran Absolute 0.04 *NA* (01/19/22 3:25 AM) Imm Gran Auto [0.0-0.5 %] 0.4 % (01/19/22 3:25 AM) Eos, Auto [0.00-3.00 %] 0.40 % (01/19/22 3:25 AM) Vital Signs Most recent to oldest [Reference Range]: 1 2 3 Temperature Temporal Artery [36-38 Deg C] 37.2 Deg C (01/19/22 8:06 AM) 36.8 Deg C (01/19/22 5:49 AM) 37 Deg C (01/19/22:34 AM) Temperature Temporal Artery (DegF) [97.3-100 Deg F] 98.24 Deg F (01/19/22 4:34 AM) Apical Heart Rate [60-100 bpm] 80 bpm (01/19/22 5:49 AM) 72 bpm (01/19/22 5:34 AM) 82 bpm (01/19/22 5:19 AM) Heart Rate Monitored [60-100 bpm] 94 bpm (01/19/22 8:06 AM) 75 bpm (01/19/22 4:34 AM) Respiratory Rate [12-24 br/min] 18 br/min (01/19/22 8:06 AM) 20 br/min (01/19/22:49 AM) 16 br/min (01/19/22:34 AM) Blood Pressure [90-140/60-90 mmHg] 92/55mmHg (01/19/22 8:06 AM) 116/70mmHg (01/19/22 5:49 AM) 108/67mmHg (01/19/22:34 AM) Mean Arterial Pressure, Cuff [65-140 mmHg] 82 mmHg (01/19/22 4:34 AM) Weight 73.000 kg (01/19/22 5:03 AM) 73.000 kg (01/19/22: AM) Weight Dosing 73.000 kg (01/19/22:03 AM) 73.000 kg (01/19/22:01 AM) Height 154.940 cm (01/19/22 5:03 AM) 154.940 cm (01/19/22 5:01 AM) Height/Length Dosing 154.940 cm (01/19/22:03 AM) 154.940 cm (01/19/22:01 AM) Body Mass Index 30.410 kg/m2 (01/19/22 5:03 AM) 30.410 kg/m2 (01/19/22:01 AM) Social History Social History Type Response Tobacco Never tobacco user T obacco Use:. Sex Female
--- OUTSIDE RECORDS SUMMARY | 2024-03-28 20:15 | XMS_ITS | Encounter Summary ---
Author Organization [facility] Address [address] [place] [address] Care Team Providers Care Blister Pack Operator Name Role Phone Unavailable Primary Care Provider Unavailabl e Encounter Details Date Type Department Care Team (Late st Contact Info) Description 03/09/2021 Lab Requisition [facility] Pathology & Laboratory Medicine - [address] [address] Outr Resulting Lab, Provider Social History Tobacco [...] Comments ZZCOVID-19 TEST [facility] PCR Today 03/09/2021 10:10 EST COVID-19 TESTING Routine 03/09/2021 10:1 0 EST documented in this encounter Results * COVID-19 TEST [facility] PCR (03/09/2021 10:10 EST) Swab 03/09/2021 10:1 0 EST 03/09/2021 21:21 EST us Provider Outr Resulting Lab MICROBIOLOGY - GENER AL ORDERABLES Final Result [facility] [address] [place] [address] * COVID-19 TESTING (03/09/2021 10:10 EST) COVID-19 rt-PCR Result Negative Negative 03/10/2021 2:15 EST [facility] Comment: This test has not [...] history, and epidemiological information. Performed on the Socialtyze Fusion instrument Performing Lab Opp [facility] Lab 03/10/2021 2:15 EST [facility] Swab 03/09/2021 10:1 0 EST 03/09/2021 21:21 EST us Provider Outr Resulting Lab MICROBIOLOGY - GENER AL ORDERABLES Final Result [facility] [address] [place] [address] documented in this encounter Visit Diagnoses Not on filedocumented in this encounter
--- OUTSIDE RECORDS SUMMARY | 2024-03-28 20:15 | XMS_ITS | Referral Summary ---
Author Organization [facility] Address [address] [place] [address] Care Team Providers Care Locomotive Operator Name Role Phone Unavailable Primary Care [...] Orientation Not on file Plan of Treatment Not on file
--- OUTSIDE RECORDS SUMMARY | 2024-03-28 20:15 | XMS_ITS | Continuity of Care Document ---
Author Organization [facility] Ambulatory Clinics Address [address] [place] [address] Care Team Providers Care Design Engineering Specialist Name Role Phone DONNA JORDAN APRN Primary Care Physician [phone] Encounter [facility] [facility] NBR [id number] Date(s): 01/03/24 - 01/03/24 [facility] Ambulatory Clinics [address] [place] [address] [place] Encounter Diagnosis Screening for cervical cancer(Discharge Diagnosis) - 01/03/24 Discharge Disposition: Home or Self Care Attending Physician: Rashad Claudio MD Allergies, Adverse Reactions, Alerts Substance Criticality Severity Reaction Reaction Severity Status prednisoLONE 1 High criticality Moderate Oral blisters Active Celery High criticality Severe Act desire 1topical-mouth irritation Assessment and Plan Future Appointments Medications norethindrone 0.35 mg oral tablet 0.35 mg = 1 tab, Oral, Daily, # 84 tab, 3 Refill(s), Pharmacy: [id number], 154.94, cm, 01/19/22 5:08:00 EDT, Height/Length Dosing, 73, kg, 01/19/22 5:08:00 EDT, Weight Dosing Start Date: 02/01/22 Status: Ordered 19 ([place]) See Instructions, 0 Refill(s) Start Date: 12/26/21 Status: Ordered Valium 5 mg oral tablet See Instructions, 1 tab Orally times one 30 min prior to procedure. May repeat x 1 if needed., # 2 tab, 0 Refill(s), Pharmacy: [id number], 165.1, cm, 03/09/22 15:08:00 EST, Height, [...] [Reference Range]: 1 Blood Pressure [90-120/60-80 mmHg] 98/56 mmHg (01/03/24 4:03 PM) Mean Arterial Pressure, Cuff [65-140 mmH g] 70 mmHg (01/03/24 4:03 PM) Weight 59.0 kg (01/03/24 4:03 PM) Weight Measured (lbs) 130.073 lb (01/03/24 4:03 PM) Weight Dosing 59.000 kg (01/03/24 4:03 PM) Social History Social History Type Response Smoking Status Smoking tobacco use: Never tobacco user;Never entered on: 01/03/24 Sex Female Sex Representation Female (finding) summary Document * Event Display: Summary Document Authored Date: [id number] SAMANTHA DERAS : 1990 Age: 31 Years [...] 88 Problems (Active Problems Only) (SNOMED CT: [id number], Onset: 04/10/21) SAMANTHA DERAS: [birth year] Risk Factors [...] per patient 12/27/2021 Present per patient SAMANTHA DEARS : [birth year] Physical Exams Physical Exam Mental [...] Integrity General: Intact (01/20/22) Mucous Membrane Color: [place] (01/20/22) Mucous Membrane Description: Moist (01/20/22) SAMANTHA DERAS: [birth year] Blood Types and Anti-D Immune Globulin Blood Type and Screen Mother ABO/Rh: -- Mother Antibody Screen: -- Father of Baby ABO/Rh: -- Father of Baby Antibody Screen: -- Anti-D Immune Globulin Rho(D) Initial Status: -- Rho(D) 28 Week Status: -- Rho(D) Dates Given: -- SAMANTHA DERAS: [birth year] Tests and Lab Results Results ending [...] K/mcL 01/19/22 (40 weeks) (1.4 - 6.5) [place] Absolute (H) 1.1 K/mcL 01/19/22 (40 weeks) (0.1 - 0.6) Lymph Absolute 2.0 K/mcL 01/19/22 (40 weeks) (1.2 - 3.4) Baso Absolute 0.0 K/mcL 01/19/22 (40 weeks) (0.0 - 0.2) Basophil Auto (H) 0.3 % 01/19/22 (40 weeks) (0.0 - 0.2) [place] Auto (H) 10.8 % 01/19/22 (40 weeks) [...] No Actions have been documented. SAMANTHA DERAS DOB: [birth year] Situational Awareness No comments have been [...] Oral, Daily, 0 Refill(s) Ordered: 01/20/22 Provider: Dipkia Chung MD, FACOG ibuprofen 600 mg oral tablet (Historically recorded) SI mg = 1 tab, Oral, every 4 hr, PRN: pain, 0 Refill(s) Ordered: 01/20/22 Provider: Dipika Chung MD, FACOG norethindrone 0.35 mg oral tablet SI.35 mg = 1 tab, Oral, Daily, 84 tab, 4 Refill(s) Ordered: 01/20/22 Provider: Dipika Chung MD, FACOG 19 ([place]) (Historically recorded) SIG: See Instructions, 0 Refill(s) [...] TRISTAOG benzocaine-menthol 20%-0.5% topical spray (Benzocaine-Menthol Topical [place] [LTTL]) 1 tari, Topical, As Directed, PRN: other (see comment) Status: Discontinued Ordered: 01/19/22 Provider: Dipika Chung MD, TRISTAOG benzocaine-menthol 20%-0.5% topical spray (Benzocaine-Menthol Topical [place] [LTTL]) 1 tari, Topical, As Directed, PRN: [...] 01/19/22 Provider: Dipika Chung MD, FACOG witreinaldo cheep 50% rectal pad (Witch Chepe 50% Top [...] Live Sex: Male Wt: 3289 g Hospital: [facility] Comment: Nitrous GBS positive SAMANTHA [...] Age: 31 Years Date: 01/19/2022 SAMANTHA DERAS : [birth year] Social & Psychosocial History Social History Tobacco Never tobacco user Tobacco Use:. Electronic Cigarette/Vaping Electronic Cigarette Use: Never. Psychosocial History No active psychosocial history has been recorded SAMANTHA DERAS : [birth year] Infection History Infection history negative or not recorded SAMANTHA DERAS : [birth year] Anesthesia and Transfusions Prior Anesthesia or Transfusion Received: -- Prior Anesthesia Reaction(s): -- Prior Transfusion Reaction(s): -- Blood Transfusion Acceptable to Patient: -- SAMANTHA DERAS : [birth year] Plan and Patient Requests Desired Delivery Location: -- Education: -- Written Plan: -- Written Plan Location: -- Support Person/Supervisor Welding Equipment Repairer Relationship to Pt: -- Oral Intake OB: -- Labor Preferences: -- Non-Medicinal Pain Relief: -- Anesthesia/Pain Medication During Labor: Epidural, IV narcotic Delivery Plan: -- Feeding: -- Circumcision: -- Baby For Adoption: -- Patient Requests: -- Father of the Baby's Name: -- Carpet Repairer Selected: -- Surrogate : -- Support Person's Name: -- SAMANTHA DERAS : [birth year] Education Educational Materials/Leaflets Provided Title/Topic Date Provided [facility]ung's Post Discharge Instructions 01/20/22 SAMANTHA DERAS : [birth year] Registration and Information Race: White Ethnicity: Not , , or Polish Origin Marital Status: Language(s): Georgian Scientologist Preference(s): Adventism Occupation/Education: See social history above if documented. Address, Phone, and Health Plans Home Address: [address] [place] [phone] Phone: --, , -- Health Plans: 1 - [facility] Member/Group: [id number] Deductible: $ -- Type: [facility] Address: [address] [phone] General Information OB Provider(s) Information: Not explicitly [...] Medical Service 02/01/2022 4 Dipika Chung MD, [facility] Clinic Clinic 01/19/2022 A Dipika Chung MD, [facility] Inpatient Inpatient 01/16/2022 [facility]- Dipika Chung MD, [facility] Clinic Clinic 01/09/2022 1 Juan Gandhi MD Clinic Clinic 01/02/2022 3 Juan Gandhi MD Client Clinic 12/26/2021 [facility] Juan Gandhi MD Nonpatient Lab 12/26/2021 1 Juan Gandhi MD Clinic Clinic 11/25/2021 [facility] [id number] -DIPIKA CHUNG Obstetrics 10/31/2021 [facility] [id number] -DIPIKA CHUNG History Radiology 10/31/2021 [facility] Jovan Delgado History Multiple Outpatient 09/09/2021 [facility] Jovan Delgado History Laboratory 09/09/2021 [facility] Juan Gandhi MD History Radiology 06/20/2021 [facility] [id number] -S[facility]LDONDIPIKA WOOD[facility] Laboratory SAMANTHA DERAS : [birth year] Visit / Encounter Location Information The following information represents known location and contact information for locations visitedduring [facility] Ambulatory Clinics Business Address: [address] [place] [address] Phone:[phone] ([facility] Address: No addresses found on file for [...] Infant Data Gender: Male ID Band Number: [id number] Outcome: Live Security Tag Number: [id number] Weight: 3.260 kg Score 1 Minute: 9 Score 5 Minute: 9 Carpet Repairer: Abi Cespedes APRN Note: Items documented with '--' had no clinical data which qualified at time of report creation END OF REPORT Patient Care team information Care Team Personnel Name: DONNA JORDAN APRN Position: No Access Member Role: Primary Care Physician Address: [address] [place] [address] Care Team Related Persons Name: BONITA WANG Name: CHAVEZ WANG Name: CHAVEZ WANG Insurance Providers Guarantor name: SAMANTHA DERAS Health Plan Information #: 1 Payer: [facility] Member Number: [id number] Policy Number: NA Health Plan Information #: 2 Payer: [facility] Member Number: [id number] Policy Number: NA
--- OUTSIDE RECORDS SUMMARY | 2024-03-28 20:16 | XMS_ITS | Encounter Summary ---
Author Organization [facility] Address [address] [facility] [place] [address] Care Team Providers Care Configuration Management Consultant Name Role Phone Cleopatra Elias APRN Primary Care Provider Encounter Details Date Type Department Care Team ([facility] st Contact Info) Description 07/09/2018 External Results Medical Records [facility] [place] [address] Provider, Scanning Social History Tobacco Use Types Packs/Day Years Used Date Smoking Tobacco: Never Assessed Alcohol Use Standard Drinks/Week Comments Yes 0 (1 standard drink = 0.6 oz pur e alcohol) Sex and Gender Information Value Date Recorded Sex Assigned at Not on file Gender Identity Not on file Sexual Orientation Not on file documented as of this encounter Plan of Treatment Not on file documented as of this encounter Procedures Procedure Name Priority Date/Time Associated Diagnosis Comments SURGICAL PATHOLOGY SCAN Routine 07/09/2018 documented in this encounter Results * Scan Doc: Surgical Pathology (07/09/2018) Historical Provider MD WERNER MGR SCAN EX T ORDR/RSLT documented in this encounter Visit Diagnoses Not on filedocumented in this encounter Care Teams Configuration Management Consultant Relationship Specialty Start Date End Date Cleopatra Elias APRN [address] [place] [address] PCP - General 02/15/10 documented as of this encounter
--- OUTSIDE RECORDS SUMMARY | 2024-03-28 20:16 | XMS_ITS | Patient Health Record ---
Author Organization [facility] Address [address] [place] [address] Care Team Providers Care Heater Operator Name Role Phone Cleopatra Velasquez Primary Care Provider ALLERGIES Allergen (clinical drug ingredient) Drug/Non Drug Allergy documented on EMR Reaction Allergy Type Onset Date Status Celery celery (uncoded) Unknown Allergy Act desire prednisolone PrednisoLONE sores Drug Allergy A ctive fluoxetine PROzac hives Drug Allergy Active REASON FOR REFERRAL No Information MEDICATIONS Medication SIG (Take, Route, Frequency, Duration) Notes Start Date End Date Status Microgestin 04/14 20 mcg-1 mg 1 tab(s) orally once a day for 90 days Active Norethindrone 0.35 MG 1 tablet Orally On ce a day for 28 day(s) 09/24/2019 Active fluvoxaMINE Maleate 100 mg 1 tab(s) oral ly daily for 7 days Active Effexor XR 37.5 mg 1 cap(s) orally sneha y for 90 days 05/10/2015 Active Fluocinonide 0.1 % 1 application to aff ected area topically 2x per day directly to lesions for 2 weeks for 14 days 07/19/2018 Active MULTIVITAMIN Multiple Vitamins 1 tab(s) orally once a day Active IMMUNIZATIONS Vaccine Route Administration Date Status Comme nts DTaP HISTORY Unknown 01/16/1989 Administered DTaP HISTORY Unknown 04/28/1989 Administered DTaP HISTORY Unknown 08/16/1989 Administered DTaP HISTORY Unknown 10/20/1991 Administered Varicella NONSTATE SC Subcutaneous 05/19/2013 Administered Varicella HISTORY Unknown 02/13/1995 Administered Tdap HISTORY Unknown 03/08/2012 Administered polio HISTORY Unknown 01/16/1989 Administered OPV HISTORY Unknown 04/28/1989 Administered OPV HISTORY Unknown 10/20/1991 Administered MMR HISTORY Unknown 08/15/1990 Administered MMR HISTORY Unknown 01/09/1998 Administered Meningococcal STATE(Menactra) 49097 Unknown 11/13/2006 Administered MANTOUX includes admin [id number] ID Intradermal 04/10/2016 Administered Influenza HISTORY IM Intramuscular 12/21/2017 Administered Given by [employer]. Influenza HISTORY Unknown 02/04/2019 Administered HPV ADULT NON STATE IM Intramuscular 04/21/2013 Administer ed -Influenza FLUZONE NONSTATE 3+yrs preser free IM Intramuscular 04/21/2013 Administered -Influenza FLUZONE NON STATE ID ages 18-64 ID Intradermal 12/28/2011 Administered SOCIAL HISTORY Tobacco Use: Social History Observation Description Date Details (start date - stop date) Never Smoker NA - NA Sex Assigned At : Social History Observation Description Sex Assigned At Unknown SMOKING Question Answer Notes Are you a: nonsmoker DRUG SCREENING Question Answer Notes Have you used drugs other th an those for medical reasons in the past 12 months? No PROBLEMS Problem Type ICD Code Onset Dates Problem Status W/U Status Risk SNOMED Code Notes Problem Contraception (Z30.9) Active confirmed Contraception (08318241) Problem OCD (obsessive compulsive disorder) (F42) Active confirmed 541791031 Problem Ganglion cyst of wrist (M67.439) Active confirmed Ganglion cys t of wrist (690547149) Problem Anxiety disorder, unspecified (F41.9) Active confirmed Anxiety disorde r (251799724) PLAN OF TREATMENT No Information Insurance Providers Payer Name Payer Address Payer Phone Subscriber Number Group Number Insured Name Patient Relationship to Insured Coverage Start Date Coverage End Date [facility] [address] [place] [id number] SAMANTHA DERAS Self - patient is the insured SELF [place]Y [place] [address] [address] SAMANTHA DERAS Self - patient is the insured MEDICAL (GENERAL) HISTORY Medical History History ICD Code OCD contraception Surgical History Surgery Date(Month/Year) removal of plica left knee Dental extraction 2010 gangloin cyst removal left wrist: Dr Fide maxwell 2008
--- OUTSIDE RECORDS SUMMARY | 2024-03-28 20:16 | XMS_ITS | Encounter Summary ---
Author Organization [facility] Address [address] [place] [address] Care Team Providers Care Pattern Designer Name Role Phone Unavailable Primary Care Provider Unavailabl e Encounter Details Date Type Department Care Team (Late st Contact Info) Description 03/04/2020 Lab Requisition [facility] - [address] [address] Outr Resulting Lab, Provider Social History Tobacco [...] Comments ZZCOVID-19 TEST [facility] PCR Today 03/03/2020 15:05 EST COVID-19 TESTING Routine 03/03/2020 15:0 5 EST documented in this encounter Results * COVID-19 TEST [facility] PCR (03/03/2020 15:05 EST) Swab ENTIRE NASOPHARYNX / Unknown 03/03/2020 15:05 EST 03/04/2020 16:09 EST us Provider Outr Resulting Lab MICROBIOLOGY - GENER AL ORDERABLES Final Result [facility] [address] [place] [address] * COVID-19 TESTING (03/03/2020 15:05 EST) COVID-19 rt-PCR Result Negative Negative 03/04/2020 20:00 EST [facility] Comment: This test [...] history, and epidemiological information. Performed on the [employer] Fusion instrument Performing Lab [facility] Lab 03/04/2020 20:00 EST [facility] Swab 03/03/2020 15:0 5 EST 03/04/2020 16:09 EST us Provider Outr Resulting Lab MICROBIOLOGY - GENER AL ORDERABLES Final Result [facility] [address] [place] [address] documented in this encounter Visit Diagnoses Not on filedocumented in this encounter
--- OUTSIDE RECORDS SUMMARY | 2024-03-28 20:16 | XMS_ITS | Encounter Summary ---
Author Organization [facility] Address [address] [place] [address] Care Team Providers Care Safety Person Name Role Phone Unavailable Primary Care Provider Unavailabl e Encounter Details Date Type Department Care Team (Late st Contact Info) Description 01/06/2020 Lab Requisition [facility] Medicine - [facility] [address], [place] [id number] Outr Resulting Lab, Provider Social History Tobacco Use Types Packs/Day Years Used Date Smoking Tobacco: Never Assessed Comments Unknown Sex and Gender Information Value Date Recorded Sex Assigned at Not on file Legal Sex Female 16:48 EDT Gender Identity Not on file Sexual Orientation Not on file documented as of this encounter Plan of Treatment Not on file documented as of this encounter Procedures Procedure Name Priority Date/Time Associated Diagnosis Comments DO NOT ORDER STANDALONE - [facility] COVID TEST Today 01/06/2020 10:01 EDT COVID-19 TESTING Routine 01/06/2020 10:0 1 EDT documented in this encounter Results * DO NOT ORDER STANDALONE - [facility] COVID TEST (01/06/2020 10:01 EDT) COVID-19 rt-PCR Result NEGATIVE Negative 01/07/2020 17:45 EDT [facility] Comment: 2019-novel Coronavirus (2019-nCoV) not detected by the qRT-PCR assay. Consider testing for other respiratory viruses or re-collecting for 2019-nCoV testing. Note: Optimum timing for peak viral levels during infections caused by 2019-nCoV have not been determined. Collection of multiple specimens from the same patient may be necessary to detect the virus. Limitations Positive results are indicative of active infection with SARS-CoV-2 but do not rule out bacterial infection or co-infection with other viruses. The agent detected may not be the definite cause of disease. In addition, detection of viral RNA may not indicate the presence of infectious virus or that SARS-CoV-2 is the causative agent for clinical symptoms. Negative results do not preclude SARS-CoV-2 infection and should not be used as the sole basis for patient management decisions. Negative results must be combined with clinical observations, patient history, and epidemiological information. False negative results may also occur if amplification inhibitors are present in the specimen or if inadequate numbers of organisms are present in the specimen. Optimum specimen types and timing for peak viral levels during infections caused by SARS-CoV-2 have not been fully determined. Collection of multiple specimens (types and time points) from the same patient may be necessary to detect the virus. The test was validated for use with upper respiratory specimens obtained via nasopharyngeal or oropharyngeal swabs in VTM, UTM, M4, M5, M6, saline, and MTM media. The performance of this test has not been established for other specimens. Specimens collected using other FDA recommended Specimen Collection Materials listed in the FDA COVID-19 [employer] communication (June 19, 2019) are processed with the caveat that they were not all validated for use with this test and the result must be interpreted in this context. Furthermore, a false negative results may occur if a specimen is improperly collected, transported or handled. If the virus mutates in the RT-PCR target region, SARS-CoV-2 may not be detected or may be detected less predictably. Inhibitors or other types of interference may produce a false negative result. An interference study evaluating the effect of common cold medications was not performed. This test is not FDA-cleared but its performance characteristics were established by our CLIA-certified, CAP-accredited, high complexity laboratory in accordance with CLIA regulations, College of [employer] (CAP) guidelines (Jun 12, 2019), and FDA guidance (May 24, 2019). This test is only for use under the Food and Drug Administration's Emergency Use Authorization. Swab ENTIRE NASOPHARYNX / Unknown 01/06/2020 10:01 EDT 01/06/2020 16:52 EDT us Provider Outr Resulting Lab MICROBIOLOGY - GENER AL ORDERABLES Final Result [facility] [place] * COVID-19 TESTING (01/06/2020 10:01 EDT) COVID-19 rt-PCR Result NEGATIVE Negative 01/07/2020 20:18 EDT [facility] Comment: 2019-novel Coronavirus (2019-nCoV) not detected by the qRT-PCR assay. Consider testing for other respiratory viruses or re-collecting for 2019-nCoV testing. Note: Optimum timing for peak viral levels during infections caused by 2019-nCoV have not been determined. Collection of multiple specimens from the same patient may be necessary to detect the virus. Limitations Positive results are indicative of active infection with SARS-CoV-2 but do not rule out bacterial infection or co-infection with other viruses. The agent detected may not be the definite cause of disease. In addition, detection of viral RNA may not indicate the presence of infectious virus or that SARS-CoV-2 is the causative agent for clinical symptoms. Negative results do not preclude SARS-CoV-2 infection and should not be used as the sole basis for patient management decisions. Negative results must be combined with clinical observations, patient history, and epidemiological information. False negative results may also occur if amplification inhibitors are present in the specimen or if inadequate numbers of organisms are present in the specimen. Optimum specimen types and timing for peak viral levels during infections caused by SARS-CoV-2 have not been fully determined. Collection of multiple specimens (types and time points) from the same patient may be necessary to detect the virus. The test was validated for use with upper respiratory specimens obtained via nasopharyngeal or oropharyngeal swabs in VTM, UTM, M4, M5, M6, saline, and MTM media. The performance of this test has not been established for other specimens. Specimens collected using other FDA recommended Specimen Collection Materials listed in the FDA COVID-19 [employer] communication (June 19, 2019) are processed with the caveat that they were not all validated for use with this test and the result must be interpreted in this context. Furthermore, a false negative results may occur if a specimen is improperly collected, transported or handled. If the virus mutates in the RT-PCR target region, SARS-CoV-2 may not be detected or may be detected less predictably. Inhibitors or other types of interference may produce a false negative result. An interference study evaluating the effect of common cold medications was not performed. This test is not FDA-cleared but its performance characteristics were established by our CLIA-certified, CAP-accredited, high complexity laboratory in accordance with CLIA regulations, College of [employer] Pathologists (CAP) guidelines (Jun 12, 2019), and FDA guidance (May 24, 2019). This test is only for use under the Food and Drug Administration's Emergency Use Authorization. Performing Lab [facility] 01/07/2020 20:18 EDT [facility] Swab 01/06/2020 10:0 1 EDT 01/06/2020 16:52 EDT us Provider Outr Resulting Lab MICROBIOLOGY - GENER AL ORDERABLES Final Result [facility] [address] [place] [address] [facility] [place], [place] documented in this encounter Visit Diagnoses Not on filedocumented in this encounter
--- OUTSIDE RECORDS SUMMARY | 2024-03-28 20:16 | XMS_ITS | Encounter Summary ---
Author Organization Formerly [facility] Address [facility] [place] [address] Care Team Providers Care Yard Brakeman Name Role Phone JadaCleopatra MELVA Primary Care Provider Encounter Details Date Type Department Care Team (Latest Contact Info) Description 07/05/2018 9:46 PM EDT - 07/05/2018 11:59 PM EDT Hospital Encounter Laboratory [facility] [place] [phone] Discharge Disposition: Home Social History Tobacco Use Types Packs/Day Years Used Date Smoking Tobacco: Never Assessed Alcohol Use Standard Drinks/Week Comments Yes 0 (1 standard drink = 0.6 oz pur e alcohol) Sex and Gender Information Value Date Recorded Sex Assigned at Not on file Gender Identity Not on file Sexual Orientation Not on file documented as of this encounter Medications at Time of Discharge Medication Sig Dispensed Refills Start Date End Date norethindrone-ethinyl estradiol (MICROGESTIN 04/14) 1-20 mg-mcg Tablet Take 1 tablet by mouth daily. 0 07/30/2014 venlafaxine (EFFEXOR-XR) 37.5 mg Capsule, Sust. Release 24 hr Take 37.5 mg by mouth daily (with lunch). 0 07/28/2014 venlafaxine (EFFEXOR-XR) 75 mg Capsule, Sust. Release 24 hr Take 75 mg by mouth every morning. 0 07/28/2014 documented as of this encounter Plan of Treatment Not on file documented as of this encounter Procedures Procedure Name Priority Date/Time Associated Diagnosis Comments SURGICAL PATHOLOGY REPORT Routine 07/05/2018 12:00 PM EDT documented in this encounter Results * Surgical Pathology Report (07/05/2018 12:00 PM EDT) Final Diagnosis [id number] ? Location: [facility] The signing pathologist has (i) examined the relevant preparation(s) for the specimen(s) and (ii) rendered or confirmed the diagnosis(es). . ?Surgical Pathology DIAGNOSIS A. Skin, post right lower leg, punch biopsy: - Acanthosis, subtle spongiosis ?? with interface changes, lymphocyte exocytosis and perivascular lymphocytic infiltrate (see discussion) Electronically signed by: ??Alejandra Carrasquillo MD Verified: ??07/14/2018 ?Dermatopathologist Performed at: ??-[facility] Dept. of Pathology, [place], [place] DISCUSSION Sections show acanthotic epidermis with subtle spongiosis, overlying parakeratosis and extensive lymphocytes exocytosis. There is basal vacuolization, rare dyskeratotic kertinocytes and focal red blood cell extravasation. A superficial perivascular lymphocytic infiltrate is also present. Overall, while an eczematous process is considered within the differential diagnosis, the degree of lymphocyte exocytosis with basal vacuolar changes and rare dyskeratotic cell would raise consideration in regard to pityriasis lichenoides. No fungal hyphae are detected with a PAS stain. Clinicopathologic correlation is recommended. ADDITIONAL STUDIES Multiple step-leveled sections were reviewed. CLINICAL INFORMATION Specimen Submitted: A - Post R lower leg Clinical History and Diagnosis: Red macule, some scaling, pruritic, 8 mm diameter; fungal Referring Identifier: ??[id number] SPECIMEN PROCESSING A - Labeled/Fixative: Patient demographics, formalin. Quantity/Size: ??Single, 0.3 x 0.3 x 0.2 cm. Tissue Description: Punch of firm, owen-brown skin. Sections/Processing: Entirely submitted in 1 cassette labeled A1. ??apb 07/14/2018 1:14 PM EDT [facility] SPECIMEN FROM SKIN / Unknown 07/05/2018 12:00 PM EDT 07/05/2018 12:00 PM EDT Narrative Resulting Agency Comment Spec In Lab / WKS Christopher Sanchez DO PATHOLOGY/CYTOLOGY O RDERABLES [facility] [place] [address] documented in this encounter Visit Diagnoses Not on filedocumented in this encounter Care Teams Yard Brakeman Relationship Specialty Start Date End Date Cleopatra Elias, MELVA [address] [place] [id number] PCP - General 02/15/10 documented as of this encounter
--- OUTSIDE RECORDS SUMMARY | 2024-03-28 20:16 | XMS_ITS | Encounter Summary ---
[place] [address] Care Team Providers Care Psychosocial Rehabilitation Counselor Name Role Phone Yair Elias APRN Primary Care Provider Encounter Details Date Type Department Care Team (Late st Contact Info) Description 11/01/2010 6:55 PM EDT - 11/01/2010 11:59 PM EDT [place] [address] Skye Ortiz MD [address] [place] [address] Discharge Disposition: Home Social History Tobacco Use Types Packs/Day Years Used Date Smoking Tobacco: Never Assessed Sex and Gender Information Value Date Recorded Sex Assigned at Not on file Gender Identity Not on file Sexual Orientation Not on file documented as of this encounter Plan of Treatment Not on file documented as of this encounter Procedures Procedure Name Priority Date/Time Associated Diagnosis Comments GENERAL MANAGER LAND DEPARTMENT CYTOLOGY FINAL REPORT Routine 11/01/2010 7:19 PM EDT documented in this encounter Results * GENERAL MANAGER LAND DEPARTMENT CYTOLOGY FINAL REPORT (11/01/2010 7:19 PM EDT) Assistant Guest Services Manager Cytology Final Report ? [facility] ? Provider: ?? YAIR ELIAS ? Pt. Name: ?? SAMANTHA GUILLORY ? Acc #: ?[id number] ?Pt. ? Col Date: ?? 11/01/2010 ?/Sex: ?1990,(19 years),Female ? Rec Date: ?? 11/03/2010 ? LOC: ?[facility] ? CYTOPATHOLOGY: ??GENERAL MANAGER LAND DEPARTMENT ? ---Adequacy--- ? Specimen submitted is satisfactory for evaluation. ??No endocervical ? component present . ? Note: ??Initial cross-sectional studies suggested that QUENTIN cells were more ? commonly identified when an endocervical component was present, however ? subsequent longitudinal studies fail to show that women lacking an ? endocervical component in a Pap smear are at increased risk for QUENTIN. ? ---Cytopathologic Diagnosis--- ? NORMAL ? Negative for Intraepithelial Lesion or Malignancy (NILM). ? 11/07/10 ?? Screened by: ??SLA ? 11/07/10 ?? Verified by: ??Fabiola CT(ASCP), Mary Molina - ? Certified Court/Medical Interpreter ? ---Clinical Information--- ? Hormones?: ?No ? Hysterectomy?: ?No ?: ?No ?: ?No ? I.U.D.?: ?No ? Pelvic Radiation: ? No ? Prior GENERAL MANAGER LAND DEPARTMENT Therapy?: ? No ? Hist Abnl Pap/Biopsy?: ??No ? --- ? HPV Option: ? Reflex HPV ? Specimen Source: ?Cervical Endocervical LBP ? Preparation: ?Liquid Based Pap ? LMP: ?10/25/2010 ? --- ? Hist of HPV Vaccine?: ?? (not provided) ? Hist of Smoking?: ? (not provided) ? Hist of SANJUANA exposure?: ??(not provided) ? Clinical Data, Significant Therapy and Clinical Impression: ?_ ? Referring Identifier: ??[id number] ? [facility] ? Provider: ?? YAIR ELIAS ? Pt. Name: ?? SAMANTHA GUILLORY ? Acc #: ?[id number] ?Pt. ? Col Date: ?? 11/01/2010 ?/Sex: ?1990,(19 years),Female ? Rec Date: ?? 11/03/2010 ? LOC: ?[facility] ? CYTOPATHOLOGY: ??GENERAL MANAGER LAND DEPARTMENT ? This Pap Test has been evaluated with the assistance of the ThinPrep Pap ? Test Imaging System. ? Note: ? The Pap test is a screening test for cervical cancer with an inherent ? false-negative rate dependent upon several variables. ??For further ? information please contact the [facility] Laboratory. ? Reference: ??Yogi ARMANDO. ??Youth Director of Pap Smear Results. ??In: ? Anne BS, [facility], ed. ??The Pap Smear. ??[place]: ??[place], 2002: ? 71-77. GANESH MORAES 11/01/2010 7:19 PM EDT Yair Elias APRN PATHOLOGY/CYTOLOGY O RDERABLES Performing Organization Address City/State/[facility] Co de Phone Number [facility] documented in this encounter Visit Diagnoses Not on filedocumented in this encounter Care Teams Psychosocial Rehabilitation Counselor Relationship Specialty Start Date End Date Yair Elias APRN [address] [place] [address] PCP - General 02/15/10 documented as of this encounter
--- OUTSIDE RECORDS SUMMARY | 2024-03-28 20:16 | XMS_ITS | Encounter Summary ---
Author Organization [facility] Address [facility] [place] [address] Care Team Providers Care Security Installation Sales Technician Name Role Phone Cleopatra Elias MELVA Primary Care Provider Encounter Details Date Type Department Care Team (Late st Contact Info) Description 11/24/2010 Orders [place] [address] Robby Plata MD [facility] [place] [address] Social History Tobacco Use Types Packs/Day Years Used Date Smoking Tobacco: Never Assessed Sex and Gender Information Value Date Recorded Sex Assigned at Not on file Gender Identity Not on file Sexual Orientation Not on file documented as of this encounter Plan of Treatment Not on file documented as of this encounter Procedures Procedure Name Priority Date/Time Associated Diagnosis Comments FILM LIBRARY STORAGE ONLY DX WRIST Routine 11/24/2010 8:45 AM EDT documented in this encounter Results * Film Library- Storage only DX Wrist (11/24/2010 8:45 AM EDT) Anatomical Region Laterality Modality Other 11/24/2010 8:45 AM EDT Narrative 05/27/2014 8:45 AM EST This is a Non-reportable exam Procedure Note PING, UNSIGNED REPORT - 05/27/2014 This is a Non-reportable exam Robby Plata MD IMG FILM LIBRARY ORD ERABLES documented in this encounter Visit Diagnoses Not on filedocumented in this encounter Care Teams Security Installation Sales Technician Relationship Specialty Start Date End Date Cleopatra Elias APRN [address] [place], [place] [id number] PCP - General 02/15/10 documented as of this encounter
--- OUTSIDE RECORDS SUMMARY | 2024-03-28 20:16 | XMS_ITS | Clinical Summary ---
Author Organization [facility] Address [facility] [place] [address] Care Team Providers Care Bond Clerk Name Role Phone Charliejesus manuelCleopatra MELVA Primary Care Provider Allergies Active Allergy Reactions Criticality Noted Date Comments Prednisolone Other (See Comments) 08/05/2014 Sores in mouth from prescription toothpaste Medications Medication Sig Dispensed Refills Start Date End Date Status norethindrone-ethinyl estradiol (MICROGESTIN 04/14) 1-20 mg-mcg Tablet Take 1 tablet by mouth daily. 0 07/30/2014 Active venlafaxine (EFFEXOR-XR) 37.5 mg Capsule, Sust. Release 24 hr Take 37.5 mg by mouth daily (with lunch). 0 07/28/2014 Active venlafaxine (EFFEXOR-XR) 75 mg Capsule, Sust. Release 24 hr Take 75 mg by mouth every morning. 0 07/28/2014 Active Active Problems Problem Noted Date Diagnosed Date Dorsal left wrist ganglion, recurrent 08/06/2014 Family History Medical History Relation Comments Cancer Maternal Grandmother Relation Status Comments Maternal Grandmother Social History Tobacco Use Types Packs/Day Years Used Date Smoking Tobacco: Never Assessed Alcohol Use Standard Drinks/Week Comments Yes 0 (1 standard drink = 0.6 oz pur e alcohol) Sex and Gender Information Value Date Recorded Sex Assigned at Not on file Gender Identity Not on file Sexual Orientation Not on file Last Filed Vital Signs Vital Sign Reading Time Taken Comments Blood Pressure 100/64 08/05/2014 1:13 PM EDT Pulse 78 08/05/2014 1:13 PM EDT Temperature - - Respiratory Rate - - Oxygen Saturation - - Inhaled Oxygen Concentration - - Weight 61.2 kg (135 lb) 08/05/2014 1:13 PM EDT s tated Height 165.1 cm (5' 5) 08/05/2014 1:13 PM EDT s tated Body Mass Index 22.47 08/05/2014 1:13 PM EDT Plan of Treatment Health Maintenance Due Date Last Done Comments HIV screen 2006 Hepatitis C Screening 2006 Hepatitis B vaccine (0-59 yrs) (1) 11/20/2007 Tetanus/Diphtheria/Pertussis Vaccines (1 - Tdap) 11/20/2007 HPV test 2018 PAP Smear 04/29/2020 04/29/2015, 11/01/2010 Covid-19 Vaccine (1 - season) 2023 Influenza (Flu) vaccine (1 o f 1 - Influenza standard series) 11/25/2023 Procedures Procedure Name Priority Date/Time Associated Diagnosis Comments CIRCULATION SALES REPRESENTATIVE CYTOLOGY FINAL REPORT Routine 04/29/2015 2:50 PM EST from Last 3 Months or Most Recently Relevant to Health Maintenance Results * Pollution Control Engineer Cytology Final Report (04/29/2015 2:50 PM EST) Pollution Control Engineer Cytology Final Report [id number] ? Location: [facility] The signing pathologist has (i) examined the relevant preparation(s) for the specimen(s) and (ii) rendered or confirmed the diagnosis(es). . ? Pollution Control Engineer Final DIAGNOSIS NORMAL Negative for Intraepithelial Lesion or Malignancy (NILM). 05/10/15 ?? Screened by: ??REP 05/10/15 ?? Verified by: ??EDILSON Gustafson(ASCP), Alina Ponce - Mounter S[employer] STATEMENT OF ADEQUACY Specimen submitted is satisfactory for evaluation. ??No endocervical component present . Note: ??Initial cross-sectional studies suggested that QUENTIN cells were more commonly identified when an endocervical component was present, however subsequent longitudinal studies fail to show that women lacking an endocervical component in a Pap smear are at increased risk for QUENTIN. CLINICAL INFORMATION HPV Option: ? Reflex HPV Preparation: ?Liquid Based Pap Specimen Source: ?Cervical Endocervical LBP LMP: ?/14/16 Hormones?: ?Yes Hysterectomy?: ?No ?: ?No ?: ?No I.U.D.?: ?No Pelvic Radiation: ? No Prior CIRCULATION SALES REPRESENTATIVE Therapy?: ? No Hist Abnl Pap/Biopsy?: ??No Hist of HPV Vaccine?: ?? Yes Hist of Smoking?: ? No Hist of SANJUANA exposure?: ??No Clinical Data, Significant Therapy and Clinical Impression: ?? _ Referring Identifier: ??[id number] This Pap Test has been evaluated with the assistance of the ZoomSystems Pap Test Imaging System. Note: The Pap test is a screening test for cervical cancer with an inherent false-negative rate dependent upon several variables. ??For further information please contact the [facility]. Reference: ??Yogi CS. ??Court Usher of Pap Smear Results. ??In: ??Anne BS, [facility], ed. ??The Pap Smear. ??[place]: ??[place], 2002: ??71-77. KARENBLANCA DIMITRY 04/29/2015 2:50 PM EST Narrative Resulting Agency Comment Spec In Lab / [facility] Cleopatra Elias APRN PATHOLOGY/CYTOLOGY O RDERABLES GANESH MORAES from Last 3 Months or Most Recently Relevant to Health Maintenance Care Teams Bond Clerk Relationship Specialty Start Date End Date Cleopatra Elias APRN [address] [place] [address] [facility] - General 02/15/10
--- OUTSIDE RECORDS SUMMARY | 2024-03-28 20:16 | XMS_ITS | Encounter Summary ---
Author Organization [facility] Address [facility] [place] [address] Care Team Providers Care Preschool Lead Teacher Name Role Phone Cleopatra Elias MELVA Primary Care Provider Encounter Details Date Type Department Care Team (Late st Contact Info) Description 06/09/2014 Orders Only Orthopaedics at [facility] [place] [address] Robby Plata MD [facility] DR ORTHOPAED[place] [address] Left hand pain Social History Tobacco Use Types Packs/Day Years Used Date Smoking Tobacco: Never Assessed Sex and Gender Information Value Date Recorded Sex Assigned at Not on file Gender Identity Not on file Sexual Orientation Not on file documented as of this encounter Miscellaneous Notes * Addendum Note - Yaz Novoa CMA - 07/31/2014 1:15 PM EDTAddended by: YAZ NOVOA on: 07/31/2014 01:15 PM Modules accepted: Orders documented in this encounter Plan of Treatment Not on file documented as of this encounter Results * XR hand diagnostic minimum 3 views (08/05/2014 12:34 PM EDT) Anatomical Region Laterality Modality Hand N/A Radiographic Nicolle ging 08/05/2014 12:3 4 PM EDT Impressions 08/05/2014 2:08 PM EDT IMPRESSION: Soft tissue convexity of the dorsal wrist as described. This could represent ganglion cyst. Narrative 08/05/2014 2:08 PM EDT EXAMINATION: DIAG HAND MIN 3 VIEWS/LEFT CLINICAL HISTORY: left hand ?ganglion TECHNIQUE: Frontal, oblique, and lateral views of the left wrist. COMPARISON: 11/24/2010. FINDINGS: Normal bony mineralization and alignment. No acute osseous abnormalities. There is prominence of the dorsal soft tissues at the level of the proximal carpal row. No underlying bony abnormalities are appreciated. Procedure Note August Caban MD - 08/05/2014 EXAMINATION: DIAG HAND MIN 3 VIEWS/LEFT CLINICAL HISTORY: left hand ?ganglion TECHNIQUE: Frontal, oblique, and lateral views of the left wrist. COMPARISON: 11/24/2010. FINDINGS: Normal bony mineralization and alignment. No acute osseous abnormalities.There is prominence of the dorsal soft tissues at the level of the proximalcarpal row. No underlying bony abnormalities are appreciated. IMPRESSION IMPRESSION: Soft tissue convexity of the dorsal wrist as described. This couldrepresent ganglion cyst. Robby Plata MD IMG DX ORDERABLES documented in this encounter Visit Diagnoses Diagnosis Left hand pain Pain in limb Left hand pain Pain in limb documented in this encounter Care Teams Preschool Lead Teacher Relationship Specialty Start Date End Date Cleopatra Elias APRN [address] [place], [place] [phone] PCP - General 02/15/10 documented as of this encounter
--- OUTSIDE RECORDS SUMMARY | 2024-03-28 20:16 | XMS_ITS | Encounter Summary ---
Author Organization [facility] Address [facility] [place] [address] Care Team Providers Care Machine Installer Name Role Phone Cleopatra Elias MELVA Primary Care Provider Encounter Details Date Type Department Care Team (Late st Contact Info) Description 09/23/2014 Telephone [place] [phone] Robby Plata MD [facility] DR [place] [address] Social History Tobacco Use Types Packs/Day Years Used Date Smoking Tobacco: Never Assessed Alcohol Use Standard Drinks/Week Comments Yes 0 (1 standard drink = 0.6 oz pur e alcohol) Sex and Gender Information Value Date Recorded Sex Assigned at Not on file Gender Identity Not on file Sexual Orientation Not on file documented as of this encounter Miscellaneous Notes * Telephone Encounter - Paula Wagoner H - 09/23/2014 11:59 AM EDT Have not been able to reach patient to schedule surgery. I have sent her a letter with the following: Tuesday, September 23, 2014 Dear Ms. Guillory, I have tried to reach you a few times to schedule your surgery with Dr. Robby Plata. Please contact me at your convenience to discuss a date for surgery, or let me know if you???d prefer to not schedule the surgery at this time. I can be reached at . If you happen to get my voicemail, please leave a message with your phone number and I will return your call promptly. I appreciate your help. On behalf of our orthopaedics staff, I thank you for choosing [facility] for your healthcare needs. Sincerely, Paula Wagoner OR [employer] Executive Producer Department of Orthopaedics documented in this encounter Plan of Treatment Not on file documented as of this encounter Visit Diagnoses Not on filedocumented in this encounter Care Teams Machine Installer Relationship Specialty Start Date End Date Cleopatra Elias APRN [address] [place] [address] PCP - General 02/15/10 documented as of this encounter
--- OUTSIDE RECORDS SUMMARY | 2024-03-28 20:16 | XMS_ITS | Encounter Summary ---
Author Organization [facility] Address [address] [place] [address] Care Team Providers Care Forestry Farm Laborer Name Role Phone Unavailable Primary Care Provider Unavailabl e Encounter Details Date Type Department Care Team (Late st Contact Info) Description 02/25/2020 Lab Requisition [facility] Pathology & Laboratory Medicine - [address] [address] Outr Resulting Lab, Provider Social History Tobacco [...] Comments ZZCOVID-19 TEST [facility] PCR Today 02/24/2020 13:00 EST COVID-19 TESTING Routine 02/24/2020 13:0 0 EST documented in this encounter Results * COVID-19 TEST [facility] PCR (02/24/2020 13:00 EST) Swab ENTIRE NASOPHARYNX / Unknown 02/24/2020 13:00 EST 02/25/2020 21:05 EST us Provider Outr Resulting Lab MICROBIOLOGY - GENER AL ORDERABLES Final Result [facility] [address] [place] [address] * COVID-19 TESTING (02/24/2020 13:00 EST) COVID-19 rt-PCR Result Negative Negative 02/26/2020 18:36 EST [facility] Comment: Negative results do not preclude 2019-nCoV infection and should not be used as the sole basis for treatment or other patient management decisions. Negative results must be combined with clinical observations, patient history, and epidemiological information. This test was developed and its performance characteristics determined by [facility]. It has not been cleared or approved by the US Food and Drug Administration. FDA does not require this test to go through premarket FDA review. This test is used for clinical purposes. It should not be regarded as investigational or for research. This laboratory is certified under the Clinical Laboratory Improvement Amendments (CLIA) as qualified to perform high complexity clinical laboratory testing. This test is based on the CDC COVID-19 Emergency Use Authorization (EUA) assay, with minor modification as defined by the FDA Performed on the [employer] 7 Flex. Performing Lab [facility] Hospital Lab 02/26/2020 18:36 EST [facility] Swab 02/24/2020 13:0 0 EST 02/25/2020 21:05 EST us Provider Outr Resulting Lab MICROBIOLOGY - GENER AL ORDERABLES Final Result [facility] [address] [place] [address] documented in this encounter Visit Diagnoses Not on filedocumented in this encounter
--- OUTSIDE RECORDS SUMMARY | 2024-03-28 20:16 | XMS_ITS | Encounter Summary ---
Author Organization [facility] Address [address] [place] [address] Care Team Providers Care Cushion Assembler Name Role Phone Unavailable Primary Care Provider Unavailabl e Encounter Details Date Type Department Care Team (Late st Contact Info) Description 03/10/2020 Lab Requisition [facility] Pathology & Laboratory Medicine - [address] [address] Outr Resulting Lab, Provider Social History Tobacco [...] Comments ZZCOVID-19 TEST [facility] PCR Today 03/09/2020 15:10 EST COVID-19 TESTING Routine 03/09/2020 15:1 0 EST documented in this encounter Results * COVID-19 TEST [facility] PCR (03/09/2020 15:10 EST) Swab ENTIRE NASOPHARYNX / Unknown 03/09/2020 15:10 EST 03/10/2020 16:36 EST us Provider Outr Resulting Lab MICROBIOLOGY - GENER AL ORDERABLES Final Result [facility] [address] [place] [address] * COVID-19 TESTING (03/09/2020 15:10 EST) COVID-19 rt-PCR Result Negative Negative 03/16/2020 9:42 EST [facility] Comment: Negative results do not preclude 2019-nCoV infection and should not be used as the sole basis for treatment or other patient management decisions. Negative results must be combined with clinical observations, patient history, and epidemiological information. This test was developed and its performance characteristics determined by [facility]. It has not been cleared or approved [...] defined by the FDA Performed on the [employer] 7 Flex. Performing Lab [employer] [facility] Lab 03/16/2020 9:42 EST [facility] Swab 03/09/2020 15:1 0 EST 03/10/2020 16:36 EST us Provider Outr Resulting Lab MICROBIOLOGY - GENER AL ORDERABLES Final Result [facility] [address] [place] [address] documented in this encounter Visit Diagnoses Not on filedocumented in this encounter
--- OUTSIDE RECORDS SUMMARY | 2024-03-28 20:16 | XMS_ITS | Encounter Summary ---
Author Organization [facility] [place] [address] Care Team Providers Care Fitting Supervisor Name Role Phone Jada Cleopatra Rodriguez APRN Primary Care Provider Reason for Visit * Reason Onset Date Comments Referral 05/25/2014 Encounter Details Date Type Department Care Team (Late st Contact Info) Description 05/25/2014 Telephone Orthopaedics at [facility] [place] [phone] Irene Steele Referral Social History Tobacco Use Types Packs/Day Years Used Date Smoking Tobacco: Never Assessed Sex and Gender Information Value Date Recorded Sex Assigned at Not on file Gender Identity Not on file Sexual Orientation Not on file documented as of this encounter Miscellaneous Notes * Telephone Encounter - Nydia Jovel - 06/09/2014 8:30 AM EDT All documents here, patient scheduled * Telephone Encounter - Micah Collins - 06/02/2014 5:07 PM EDT Received 3 pages of office notes from [facility], for the patients upcoming appointment. List what was rec'd. Ganglion cyst operative report Dr. Chase * Telephone Encounter - Micah Collins - 05/26/2014 11:04 AM EST Received 9 pages of office notes from [facility] , for the patients upcoming appointment. List what was rec'd. Progress note Cleopatra Elias DENISA Physical therapy note 12/06/10 * Telephone Encounter - Micah Collins - 05/26/2014 10:25 AM EST Received 1 pages of office notes from [facility] for the patients upcoming appointment. List what was rec'd. One left wrist image (xray) report left hand. * Telephone Encounter - Irene Caraballo - 05/25/2014 4:21 PM EST Ask the patient to verify the following: Full Name: Tara Guillory : 1990 Phone number: [phone] (home) Mailing address: [address] [place] [id number] Age: 23 y.o. Appointment date: TBD Appointment is with: TBD Reason #1 Injury/Complaint: LEFT WRIST PAIN Date of injury/complaint: NA Is this a new injury? No Is this a 2nd opinion? Yes Appointment type: 18-100 Adult - Not sports related Is this Workers Comp? No How long have you had these symptoms? 3 years Records Retrieval Most recent physical exam: No X-rays: No MRI: No CT Scan: No Physical therapy: No Injection: No Other diagnostic studies: No Other therapies: No Other specialist(s): No If 2nd (+) opinion get info on previous: Yes - What? When? Where? Who? Notes: LEFT WRIST PAIN/CYST 2013 2009 [place], [place] PH: [phone] FAX: [phone] [facility] [place], [place] PH: [phone] FAX: [phone] [facility] Have you had any surgeries for this issue? Yes - What? When? Where? Who? Notes: LEFT WRIST/CYST 2009 [place], [place] PH: [phone] FAX: [phone] CHASE Did surgery include placement of implant/hardware or fixation of any kind? No Do you use any type of orthotics? No Additional injuries: Advanced Directive Do you have an Advanced Directive on file: No - Please bring a copy to your next appointment. Advance Directive chief pilot: N/A MyDH Do you have a MyDH account? No - Patient Declined documented in this encounter Plan of Treatment Not on file documented as of this encounter Visit Diagnoses Not on filedocumented in this encounter Care Teams Fitting Supervisor Relationship Specialty Start Date End Date Cleopatra Elias APRN [address] [place], [place] [id number] PCP - General 02/15/10 documented as of this encounter
--- OUTSIDE RECORDS SUMMARY | 2024-03-28 20:16 | XMS_ITS | Encounter Summary ---
Author Organization [facility] Address [facility] [place] [address] Care Team Providers Care Center Consultant Name Role Phone Cleopatra Elias MELVA Primary Care Provider Reason for Visit * Reason Onset Date Comments Pre Procedure Call 08/11/2014 Encounter Details Date Type Department Care Team (Late st Contact Info) Description 08/11/2014 [place] [phone] Robby Plata MD [facility] [place] [address] Pre Procedure Call Social History Tobacco Use Types Packs/Day Years [...] Notes * Telephone Encounter - Paula Wagoner - 08/11/2014 2:39 PM EDT There are no surgical orders in the system. I have asked Dr. Plata to submit those orders for a removal of ganglion cyst to the left hand once those are placed we will call the patient to schedule. Orders are now placed and i have left a message for the patient. * Telephone Encounter - Emilee Fernández - 08/11/2014 10:41 AM EDT Patient would like to go ahead with surgery. documented in this encounter Plan of Treatment Not on file documented as of this encounter Visit Diagnoses Not on filedocumented in this encounter Care Teams Center Consultant Relationship Specialty Start Date End Date Cleopatra Elias APRN [address] [place] [id number] PCP - General 02/15/10 documented as of this encounter
--- OUTSIDE RECORDS SUMMARY | 2024-03-28 20:16 | XMS_ITS | Encounter Summary ---
Author Organization [facility] Address [facility] [place] [address] Care Team Providers Care Rehabilitation Assistant Name Role Phone JadaCleopatra MELVA Primary Care Provider [phone] Encounter Details Date Type Department Care Team (Late st Contact Info) Description 08/05/2014 12:27 PM EDT - 08/05/2014 11:59 PM EDT Hospital Encounter XRay at [address] [place] [address] Left hand pain Social History Tobacco Use [...] Procedure Name Priority Date/Time Associated Diagnosis Comments XR HAND DIAGNOSTIC MINIMUM 3 VIEWS Routine 08/05/2014 12:34 PM EDT Left hand pain documented in this encounter Results * XR hand diagnostic [...] Diagnosis Left hand pain Pain in limb documented in this encounter Care Teams Rehabilitation Assistant Relationship Specialty Start Date End Date Cleopatra Elias APRN [address] [place] [address] PCP - General 02/15/10 documented as of this encounter
--- OUTSIDE RECORDS SUMMARY | 2024-03-28 20:16 | XMS_ITS | Encounter Summary ---
Author Organization [facility] Address [facility] [place] [address] Care Team Providers Care Security Infrastructure Engineer Name Role Phone Cleopatra Elias E MELVA Primary Care Provider Encounter Details Date Type Department Care Team (Latest Contact Info) Description 04/29/2015 9:05 PM EST - 04/29/2015 11:59 PM EST Hospital Encounter Laboratory [facility] [place] [phone] Discharge Disposition: Home Social History Tobacco Use [...] Start Date End Date norethindrone-ethinyl estradiol (MICROGESTIN /20) 1-20 mg-mcg Tablet Take 1 tablet by [...] Procedure Name Priority Date/Time Associated Diagnosis Comments FERRY PILOT CYTOLOGY INTERPRETATION Routine 04/29/2015 2:50 PM EST FERRY PILOT CYTOLOGY FINAL REPORT Routine 04/29/2015 2:50 PM EST documented in this encounter Results * Technical Sales Director Cytology Final Report (04/29/2015 2:50 PM EST) Technical Sales Director Cytology Final Report [id number] ? Location: [facility] The signing pathologist has (i) examined the relevant preparation(s) for the specimen(s) and (ii) rendered or confirmed the diagnosis(es). . ? Technical Sales Director Final DIAGNOSIS NORMAL Negative for Intraepithelial Lesion or Malignancy (NILM). 05/10/15 ?? Screened by: ??REP 05/10/15 ?? Verified by: ??Sj, CT(ASCP), Alina E. - Drafter Patent STATEMENT OF ADEQUACY Specimen submitted is satisfactory [...] Pap Specimen Source: ?Cervical Endocervical LBP LMP: ?04/08/15 Hormones?: ?Yes Hysterectomy?: ?No ?: ?No ?: ?No I.U.D.?: ?No Pelvic Radiation: ? No Prior FERRY PILOT Therapy?: ? No Hist Abnl Pap/Biopsy?: ??No Hist of HPV Vaccine?: ?? Yes Hist of Smoking?: ? No Hist of SANJUANA exposure?: ??No Clinical Data, Significant Therapy and Clinical Impression: ?? _ Referring Identifier: ??[id number] This Pap Test has been evaluated with the assistance of the [employer] Pap Test Imaging System. Note: The Pap test is a screening test for cervical cancer with an inherent false-negative rate dependent upon several variables. ??For further information please contact the [facility] Laboratory. Reference: ??Yogi CS. ??Emergency Management Consultant of Pap Smear Results. ??In: ??Anne BS, [facility], ed. ??The Pap Smear. ??[place]: ??[place], 2002: ??71-77. CERNER MILLENNIUM 04/29/2015 2:50 PM EST Narrative Resulting Agency Comment Spec In Lab / [facility] Cleopatra Elias APRN PATHOLOGY/CYTOLOGY O FATMATA GANESH IVEYENNIUM * FERRY PILOT Cytology Interpretation (04/29/2015 2:50 PM EST) Technical Sales Director Cytology Interpretation NILM CERNER MILLENNIUM Comment:Technical Sales Director Cytology Final R eport Endocervical Component Not Present KARENNER MILLENNIUM AP Specimen 04/29/2015 2:50 PM EST 05/04/2015 8:49 PM EST Narrative Resulting Agency Comment Spec In Lab / WKS Cleopatra Elias APRN PATHOLOGY/CYTOLOGY O FATMATA Performing Organization Address City/[facility]/ZIP Co de Phone Number GANESH MORAES documented in this encounter Visit Diagnoses Not on filedocumented in this encounter Care Teams Security Infrastructure Engineer Relationship Specialty Start Date End Date Cleopatra Elias APRN [address] [place] [id number] PCP - General 02/15/10 documented as of this encounter
--- OUTSIDE RECORDS SUMMARY | 2024-03-28 20:16 | XMS_ITS | Encounter Summary ---
Author Organization [facility] Address [facility] [place] [address] Care Team Providers Care Organization Development Consultant Name Role Phone JadaCleopatra MELVA Primary Care Provider Encounter Details Date Type Department Care Team (Latest Contact Info) Description 02/10/2020 1:43 PM EST - 02/10/2020 11:59 PM EST [place] [phone] Discharge Disposition: Home Social History Tobacco Use [...] Procedure Name Priority Date/Time Associated Diagnosis Comments COVID-19 PCR Routine 02/10/2020 3:45 PM EST documented in this encounter Results * COVID-19 PCR (02/10/2020 3:45 PM EST) SARS-CoV-2 RNA Not Detected Not Detected [facility] Comment: This result should be interpreted in combination with the clinical observations, patient history and epidemiological information in making a final diagnosis. For testing of asymptomatic individuals, assay performance characteristics and clinical utility have not been evaluated. Testing for SARS-CoV-2 (Severe acute respiratory syndrome coronavirus 2, formerly known as 2019 novel coronavirus or 2019-nCoV) to aid in the diagnosis of COVID-19 is performed using the [employer] RealTime SARS-CoV-2 Assay as authorized by the FDA Emergency Use Authorization (EUA). This EUA assay is intended for In-vitro Diagnostic (IVD) use with respiratory specimens such as nasopharyngeal swabs collected from individuals during the acute phase of infection. This assay is performed based on the instructions for use provided by [employer] and additional guidance provided by CDC and FDA. Testing is performed in the [facility] Laboratory within the Department of Pathology and Laboratory Medicine at [facility], certified under the Clinical Laboratory Improvement Amendments of 1988 (CLIA), 42 U.S.C. 263a, to perform high complexity tests. Assay performance has been verified according to clinical laboratory regulatory requirements for use with specimens collected from individuals suspected of COVID-19. Test results are provided above. A result of ? Not Detected? indicates that the viral RNA target is not present above the limit of detection, but does not preclude SARS-CoV-2 infection. False negative results may occur if a specimen is improperly collected, transported or handled; if amplification inhibitors are present; or if inadequate numbers of viral particles are present in the specimen. When a diagnostic test is negative, the possibility of a false negative result should be considered in the context of a patient? s recent exposures and the presence of clinical signs and symptoms consistent with COVID-19. A result of ? Detected? indicates that RNA from SARS-CoV-2 was detected and the patient is infected. As required or requested by public health authorities, positive specimens may be sent for additional testing. Positive and negative predictive values for this test are highly dependent on disease prevalence. A result of ? Invalid? indicates that neither the viral RNA targets nor the internal control target was detected. An invalid result suggests the presence of inhibitors. Recollection and re-testing is recommended in the case of an invalid result. CDC COVID-19 criteria for testing on human specimens and clinical management guidance information are available at the CDC Coronavirus Disease 2019 (COVID-19) webpage under ? Information for Healthcare Professionals? (https://www.cdc.gov/coronavirus/2019-ncov/hcp/index.html) Additional information about this and other EUA tests can be found in provider and patient fact sheets at the following FDA website: https://www.fda.gov/medical-devices/fkiqntquyxs-nvkumrw-3033-wogop-00-mfwmievli- use-a oqtiblfrmjbnx-rfkmtob-smgiaim/moole-yuqyroopuot-obbv SARS-CoV-2 RNA Source Nasal [facility] Specimen from nose (specimen) Other / Unknown 02/10/2020 3:45 PM EST 02/11/2020 8:06 PM EST Narrative Resulting Agency Comment Spec In Lab Helena Jenkins APRN MOLECULAR ORDERABLE S Performing Organization Address City/State/[facility] Co de Phone Number [facility] [place] [address] documented in this encounter Visit Diagnoses Not on filedocumented in this encounter Care Teams Organization Development Consultant Relationship Specialty Start Date End Date Cleopatra Elias APRN [address] [place] [address] PCP - General 02/15/10 documented as of this encounter
--- OUTSIDE RECORDS SUMMARY | 2024-03-28 20:16 | XMS_ITS | Encounter Summary ---
Author Organization [facility] Address [facility] [place] [address] Care Team Providers Care Consulting Psychiatrist Name Role Phone Cleopatra Elias APRN Primary Care Provider Encounter Details Date Type Department Care Team (Late st Contact Info) Description 08/11/2014 Orders [place] [phone] Robby Plata MD [facility] [place] [address] Dorsal left wrist ganglion, recurrent Social History Tobacco Use Types Packs/Day Years [...] documented as of this encounter Visit Diagnoses Diagnosis Dorsal left wrist ganglion, recurrent Ganglion of joint documented in this encounter Care Teams Consulting Psychiatrist Relationship Specialty Start Date End Date Cleopatra Elias APRN [address] [place] [id number] PCP - General 02/15/10 documented as of this encounter
--- OUTSIDE RECORDS SUMMARY | 2024-03-28 20:16 | XMS_ITS | Encounter Summary ---
Author Organization [facility] Address [facility] [place] [address] Care Team Providers Care Cooling Pipe Inspector Name Role Phone Cleopatra Elias MELVA Primary Care Provider [phone] Reason for Visit * Reason Comments Left Hand Pain Encounter Details Date Type Department Care Team (Late st Contact Info) Description 08/05/2014 1:25 PM EDT Office Visit [place] [phone] Robby Plata MD [facility] [address] [place] [address] Dorsal left wrist ganglion, recurrent Discharge Disposition: Home Social History Tobacco Use Types Packs/Day Years Used Date Smoking Tobacco: Never Assessed Alcohol Use Standard Drinks/Week Comments Yes 0 (1 standard drink = 0.6 oz pur e alcohol) Sex and Gender Information Value Date Recorded Sex Assigned at Not on file Gender Identity Not on file Sexual Orientation Not on file documented as of this encounter Last Filed Vital Signs Vital Sign Reading [...] Mass Index 22.47 08/05/2014 1:13 PM EDT documented in this encounter Progress Notes * Robby Plata MD - 08/05/2014 2:00 PM EDT I saw Tara Guillory in conjunction with Charlene Cuevas MD. She presents with a recurrent left dorsal wrist ganglion that was previously excised in [facility] by Dr. Reynaga in 2007, but it recurred shortly thereafter. She notes that it is uncomfortable. It occasionally will spontaneously rupture and then recur. She has had no specific trauma that caused this to come on. Her exam shows a very large 3-cm diameter left dorsal wrist ganglion over the scaphoid interval. She has a well-healed vertical scar present from a former ganglionectomy. Her hand is sensate and well perfused. X-rays of her left hand and wrist were normal. DIAGNOSIS: Recurrent left dorsal wrist ganglion. She is offered the options of aspiration, observation, or excision. I discussed excision with her in detail and told her the risks of this include, but are not limited to infection, neurovascular injury, recurrence of the ganglion, wrist stiffness, unattractive scar, or chronic pain. She will think about this and contact my office for surgical scheduling if she wishes to treat this any further. * Charlene Cuevas MD - 08/05/2014 1:22 PM EDT HAND CONSULTATION Resident Mechanism of Injury and HPI: 23 y.o. F presenting with dorsal wrist mass. She first noticed it in 2007. She then had it removed in 2008, and noted a recurrence last year. It fluctuates in size about once a month and has grown tocover the entire dorsal wrist and then subsides on its own to its original size- approximately 3cm.She states that the mass has prevented her from doing planks at yoga and during crossfit. PMH OCD Meds Venlafaxine BCP SOCIAL HISTORY Smoke: Denies Occupation: Nurse EXAMINATION: Temp: -- Heart Rate: [78] Resp: -- BP: (100)/(64) SpO2: -- On RA Nonlabored Symmetric chest movement Constitutional: NAD Inspection/Soft Tissue: No Open wounds 3cm mobile, soft mass along dorsum of wrist, transilluminates Vascular: +2 radial pulse, good capillary refill Sensation: sensation intact up through finger tips Motor: grossly intact ROM: no scissoring, normal cascade Diagnostic Testing: X-ray Imaging of hand reviewed No foreign bodies, no acute injuries Assessment: Tara Guillory is a 23 y.o. female patient with likely recurrent ganglion cyst on left dorsal wrist. We discussed options for excision versus watchful waiting. Risks, benefits, and alternatives discussed and understood by the patient. We discussed outpatient surgery for excision of dorsal wrist ganglion. She would like to take some time to consider surgery and will call to schedule. documented in this encounter Plan of Treatment Not on file documented as of this encounter Visit Diagnoses Diagnosis Dorsal left wrist ganglion, recurrent Ganglion of joint documented in this encounter Care Teams Cooling Pipe Inspector Relationship Specialty Start Date End Date Cleopatra Elias APRN [address] [place] [address] PCP - General 02/15/10 documented as of this encounter
--- OUTSIDE RECORDS SUMMARY | 2024-03-28 20:16 | XMS_ITS | Encounter Summary ---
Author Organization [facility] Address [address] [place] [address] Care Team Providers Care Quality Assurance Representative Name Role Phone Unavailable Primary Care Provider Unavailabl e Encounter Details Date Type Department Care Team (Late st Contact Info) Description 08/19/2019 Lab Requisition [facility] Pathology & Laboratory Medicine - [facility] [address] [place] [address] Outr Resulting Lab, Provider Social History Tobacco [...] Priority Date/Time Associated Diagnosis Comments ZZCOVID-19 TEST [facility] PCR Today 08/19/2019 12:28 EDT COVID-19 TESTING Routine 08/19/2019 12:2 8 EDT documented in this encounter Results * COVID-19 TEST [facility] PCR (08/19/2019 12:28 EDT) Swab ENTIRE NASOPHARYNX / Unknown 08/19/2019 12:28 EDT 08/19/2019 21:18 EDT us Provider Outr Resulting Lab MICROBIOLOGY - GENER AL ORDERABLES Final Result [facility] [address] [place] [address] * COVID-19 TESTING (08/19/2019 12:28 EDT) COVID-19 rt-PCR Result Negative Negative 08/20/2019 14:19 EDT [facility] Comment: This test [...] history, and epidemiological information. Performed on the Piktochart Fusion instrument Performing Lab [place] [facility] 08/20/2019 14:19 EDT [facility] Swab ENTIRE NASOPHARYNX / Unknown 08/19/2019 12:28 EDT 08/19/2019 21:18 EDT us Provider Outr Resulting Lab MICROBIOLOGY - GENER AL ORDERABLES Final Result [facility] [address] [place] [address] documented in this encounter Visit Diagnoses Not on filedocumented in this encounter
[2024-03-28 21:25] LABS: Abs Immature Grans 0.01 10^3/uL (0.0-0.06); Absolute Basophil Count 0.03 10^3/uL (0.0-0.2); Absolute Eosinophil Count 0.11 10^3/uL (0.0-0.7); Absolute Lymphocyte Count 2.25 10^3/uL (1.2-3.4); Absolute Monocyte Count 0.47 10^3/uL (0.1-0.8); Absolute Neutrophil Count 4.66 10^3/uL (1.2-6.7); Basophils % 0.4 %; Eosinophils % 1.5 %; HCT 39.9 % (36.0-46.0); HGB 13.7 g/dL (11.2-15.7); Immature Grans % 0.1 %; Lymphocytes % 29.9 %; MCH 31.8 pg (27.0-33.0); MCHC 34.3 % (32.0-36.0); MCV 93 fL (80-95); MPV 9.9 fL (8.0-11.0); Monocytes % 6.2 %; Neutrophils % 61.9 %; Platelet Count 254 10^3/uL (130-400); RBC 4.31 10^6/uL (3.93-5.22); RDW 11.2 % (11.7-14.6); RDW-SD 38.1 fL; WBC 7.53 10^3/uL (4.4-10.8)
[2024-03-28 21:26] LABS: ESR 2 mm/hr (0-20)
[2024-03-28 21:44] LABS: ALT 20 U/L (14-59); AST 14 U/L (15-37); Albumin 4.1 g/dL (3.4-5.0); Alkaline Phosphatase 48 U/L (46-116); Anion Gap 6.9 mmol/L (3-11); BUN 14 mg/dL (7-18); Bilirubin, Total 0.31 mg/dL (0.2-1.0); CO2 28.1 mmol/L (21.0-32.0); CREATININE 0.8 mg/dL (0.55-1.02); Calcium 8.7 mg/dL (8.5-10.1); Calculated LDL 113 mg/dL (<100); Chloride 105 mmol/L (98-107); Cholesterol 218 mg/dL (<200); Estimated GFR 98.48 (mL/min/1.73m2); Glucose 114 mg/dL (74-106); HDL Cholesterol 77 mg/dL (40-60); Potassium 3.9 mmol/L (3.5-5.1); Sodium 140 mmol/L (136-145); TSH (W/Ref FT4) 0.83 uIU/mL (0.36-3.74); Total Protein 7.1 g/dL (6.4-8.2); Triglyceride 143 mg/dL (<150)
[2024-03-28 21:54] LABS: C-Reactive Protein < 0.50 mg/dL (<or=0.5)
[2024-03-29 22:25] LABS: Rheumatoid Factor <8.6 IU/mL (<12.0)
[2024-03-31 11:10] LABS: Lyme Ab w Rflx to Lyme Confirm Negative (Negative)
[2024-03-31 14:48] LABS: ANA Interpretation Negative (Negative)
[2024-04-01 14:35] LABS: Anaplasma phagocytophilum Negative (Negative); B. miyamotoi PCR Negative (Negative); Babesia divergens/MO-1 Negative (Negative); Babesia duncani Negative (Negative); Babesia microti Negative (Negative); Ehrlichia chaffeensis Negative (Negative); Ehrlichia ewingii/canis Negative (Negative); Ehrlichia muris eauclairensis Negative (Negative)
== END 2024-03-28 19:52 | disposition home or self-care (01) ==
LOC: NCHCN 19:51
PROVIDERS: PCP Nurse Practitioner Women's Health; Visit Provider Nurse Practitioner Family
DX: Z00.00 Encounter for general adult medical examination without abnormal findings (principal); M25.59 Pain in other specified joint
CPT/HCPCS: 80053; 80061; 85652; 87798; 84443; 85025; 86038; 86140; 86431; 86618

== ENCOUNTER 2024-06-30 02:12 | Outpatient (CLI) | payer BC, SELFPAY ==
--- NOTE | 2024-06-30 13:28 | DI.MAMMO_ITS ---
Exam(s) US BREAST LT COMPLETE US BREAST RT COMPLETE MG MAMMO DIAGNOSTIC BI EXAM: MG MAMMO DIAGNOSTIC BI CLINICAL HISTORY: MASTODYNIA N64.4 PAIN LEFT BREAST. TECHNIQUE: Full field digital CC and MLO mammography views of the bothbreasts with Tomosynthesis fol lowed by bilateral breast ultrasound. COMPARISON: US US BREAST LT COMPLETE from 06/30/2024 US US BREAST RT COMPLETE from 06/30/2024 FINDINGS: RIGHT BREAST: Mammography/Tomosynthesis: Masses/Architectural Distortion: None seen. Microcalcifictions: No suspicious pleomorphic-type are seen. Skin Thickening/Nipple Retraction: None. Right breast US: Echotexture: Normal appearance of the glandular tissue. Shadowing: No suspicious foci. Cyst: None. Solid lesions: None seen. Ductal dilation: None. LEFT BREAST: Mammography/Tomosynthesis: Masses/Architectural Distortion: None seen. Microcalcifictions: No suspicious pleomorphic-type are seen. Scattered benign appearing calcification s. Skin Thickening/Nipple Retraction: None. Left breast ultrasound: Echotexture: Normal appearance of the glandular tissue. Shadowing: No suspicious foci. Cyst: None. Solid lesions: None seen. Ductal dilation: None. IMPRESSION: 1. Right breast: No evidence of malignancy is noted. 2. Left breast: No evidence of malignancy is noted. 3. Unless there is more urgent need, follow-up screening mammography is recommended, as per [place] [employer] guidelines. 4. The findings were discussed with the patient on the date of the examination. BI-RADS Category 2 - Benign Findings Breast Density - Category C - Heterogeneously dense A mammogram that demonstrates density of C or D indicates the patient's breast tissue is dense. Dense breast tissue is very common and is not abnormal, but dense breast tissue can make it harder to find cancer on a mammogram. Also, dense breast tissue may increase their breast cancer risk. This informa tion about the result of the mammogram report was provided to the patient to raise their awareness. U se this report when you speak with the patient about their risks for breast cancer, which includes th eir family history. At that time, you may recommend for more screening tests (Ultrasound or MRI) as t hey might be useful based on their risk. A negative radiographic report should not delay biopsy if a dominant or clinically suspicious mass is present. Up to ten percent of cancers are not identified on mammography. A negative report may reinforce clinical impression. Adenosis and dense breasts may obscure an underlying neoplasm. False positive reports average 6 to 10%. Patient will receive a letter notifying them of these results.
== END 2024-06-30 02:32 ==
LOC: DI 02:13
PROVIDERS: PCP Nurse Practitioner Women's Health; Visit Provider Family Medicine
DX: Z12.31 Encounter for screening mammogram for malignant neoplasm of breast (principal); N64.4 Mastodynia
CPT/HCPCS: 76642; 77062; 77066; G0279